=== PATIENT | female | born 1960 | race Caucasian/White ===

== ENCOUNTER → 2017-10-04 17:08 | Outpatient (CLI) | payer OTHER, SELFPAY ==
--- NOTE | 2017-10-04 17:12 | HPBI_ITS ---
MAMMOGRAPHY - BILATERAL SCREENING REASON FOR EXAM: Female, 57 years old. Routine annual screening examination. PERTINENT HISTORY: Non-contributory. TECHNIQUE: Digital bilateral breast ben (3D mammographic acquisition) in the CC and MLO projections. 2-D mediolateral oblique (MLO) and craniocaudad (CC) views of both breasts were obtained. CAD: Full Field Digital Mammography with Computer Added Detection was performed. COMPARISON: Comparison is made with prior examination dated July 11, 2016 and August 18, 2014. FINDINGS: Breast Composition: The breasts are heterogeneously dense, which may obscure small masses. There are no dominant masses or suspicious calcifications. No other significant abnormalities are identified. There has been no significant change since the prior study. HPBI/SCREENING MAMM (CAD), BILAT IMPRESSION: Stable bilateral screening mammogram. Yearly follow-up mammogram recommended. (A) ASSESSMENT CATEGORY: BIRADS Category 1: Negative. A letter regarding these results will be sent to the patient by the facility within 30 days. Approximately 10% of breast cancers are not detected by mammography. A normal mammogram should not delay biopsy of a clinically suspicious abnormality. [id number] Electronically Signed: Rodrick Chua MD at 9:00 EST Tel [phone], Service support ,
== END ==
PROVIDERS: Family Provider Family Medicine; PCP Family Medicine; Visit Provider Family Medicine
DX: Z12.31 Encounter for screening mammogram for malignant neoplasm of breast (principal)
CPT/HCPCS: 77063; 77067

== ENCOUNTER → 2018-10-31 17:30 | Outpatient (CLI) | payer OTHER, SELFPAY ==
--- NOTE | 2018-10-31 17:45 | BI_ITS ---
MAMMOGRAPHY - BILATERAL SCREENING 3-D JULITA SYNTHESIS REASON FOR EXAM: Female, 58 years old. Bilateral Screening 3-D tomosynthesis PERTINENT HISTORY: No significant family history. TECHNIQUE: 2-D mammograms and 3-D Julita synthesis of the breast (s) were performed. CAD was performed. COMPARISON: October 04, 2017, July 11, 2016 FINDINGS: The breast composition is heterogeneously dense that can obscure small breast masses. Scattered benign calcifications are seen. There are stable lymph nodes in both axillae. No dense spiculated masses or suspicious microcalcifications are identified. No architectural distortion is identified. There is no skin thickening or retraction. There has been no significant change since the prior study. BI/SCREENING MAMM (CAD), BILAT IMPRESSION: No mammographic signs of malignancy. Routine yearly mammograms recommended. ASSESSMENT CATEGORY: BIRADS Category 2: Benign. A letter regarding these results will be sent to the patient by the facility within 30 days. FOLLOW UP RECOMMENDATION: Yearly follow up mammogram recommended. (A) Approximately 10% of breast cancers are not detected by mammography. A normal mammogram should not delay biopsy of a clinically suspicious abnormality. Electronically Signed: Brandon Allen MD at 17:04 EDT , Service support ,
== END ==
PROVIDERS: Family Provider Family Medicine; PCP Family Medicine; Referring Provider Family Medicine; Visit Provider Family Medicine
DX: Z12.31 Encounter for screening mammogram for malignant neoplasm of breast (principal)
CPT/HCPCS: 77063; 77067

== ENCOUNTER → 2020-01-26 15:31 | Outpatient (CLI) | payer OTHER, SELFPAY ==
--- NOTE | 2020-01-26 15:34 | BI_ITS ---
MAMMOGRAPHY - BILATERAL SCREENING REASON FOR EXAM: Female, 59 years old. Routine annual screening examination. PERTINENT HISTORY: Non-contributory. TECHNIQUE: Digital bilateral breast julita (3D mammographic acquisition) in the CC and MLO projections. 2-D mediolateral oblique (MLO) and craniocaudad (CC) views of both breasts were obtained. CAD: Full Field Digital Mammography with Computer Added Detection was performed. COMPARISON: Comparison is made with prior study dated October 31, 2018 and October 04, 2017. FINDINGS: Breast Composition: The breasts are heterogeneously dense, which may obscure small masses. There are no dominant masses or suspicious calcifications. No other significant abnormalities are identified. There has been no significant change since the prior study. BI/SCREEN MAMM (CAD) W/JULITA BILAT IMPRESSION: Stable bilateral screening mammogram. Yearly follow-up mammogram recommended. (A) ASSESSMENT CATEGORY: BIRADS Category 1: Negative. A letter regarding these results will be sent to the patient by the facility within 30 days. Approximately 10% of breast cancers are not detected by mammography. A normal mammogram should not delay biopsy of a clinically suspicious abnormality. [id number] Electronically Signed: Rodrick Chua, at 9:02 EDT , Service support ,
== END ==
PROVIDERS: PCP Family Medicine; Referring Provider Family Medicine; Visit Provider Family Medicine
DX: Z12.31 Encounter for screening mammogram for malignant neoplasm of breast (principal)
CPT/HCPCS: 77063; 77067

== ENCOUNTER → 2021-03-04 14:20 | Outpatient (CLI) | payer OTHER, SELFPAY ==
--- NOTE | 2021-03-04 11:59 | BI_ITS ---
MAMMOGRAPHY - BILATERAL SCREENING REASON FOR EXAM: Female, 60 years old. Routine annual screening examination. PERTINENT HISTORY: Non-contributory. TECHNIQUE: Digital bilateral breast julita (3D mammographic acquisition) in the CC and MLO projections. 2-D mediolateral oblique (MLO) and craniocaudad (CC) views of both breasts were obtained. CAD: Full Field Digital Mammography with Computer Added Detection was performed. COMPARISON: Comparison is made with prior study dated 01/26/2020 and 10/31/2018. FINDINGS: Breast Composition: The breasts are heterogeneously dense, which may obscure small masses. There are no dominant masses or suspicious calcifications. No other significant abnormalities are identified. There has been no significant change since the prior study. BI/SCRN MAMM (CAD)W/JULITA BILAT IMPRESSION: Stable bilateral screening mammogram. Yearly follow-up mammogram recommended. (A) ASSESSMENT CATEGORY: BIRADS Category 1: Negative. A letter regarding these results will be sent to the patient by the facility within 30 days. Approximately 10% of breast cancers are not detected by mammography. A normal mammogram should not delay biopsy of a clinically suspicious abnormality. [id number] Electronically Signed: Rodrick Chua MD at 12:49 EDT , Service support ,
== END ==
PROVIDERS: PCP Family Medicine; Referring Provider Family Medicine; Visit Provider Family Medicine
DX: Z12.31 Encounter for screening mammogram for malignant neoplasm of breast (principal)
CPT/HCPCS: 77063; 77067

== ENCOUNTER → 2022-03-21 | Outpatient (CLI) | payer OTHER, SELFPAY ==
--- NOTE | 2022-03-21 08:16 | BI_ITS ---
MAMMOGRAPHY - BILATERAL SCREENING REASON FOR EXAM: Female, 61 years old. Routine annual screening examination. PERTINENT HISTORY: Non-contributory. TECHNIQUE: Digital bilateral breast julita (3D mammographic acquisition) in the CC and MLO projections. 2-D mediolateral oblique (MLO) and craniocaudad (CC) views of both breasts were obtained. CAD: Full Field Digital Mammography with Computer Added Detection was performed. COMPARISON: Comparison is made with prior study dated 03/04/2021 and 01/26/2020. FINDINGS: Breast Composition: The breasts are heterogeneously dense, which may obscure small masses. There are no dominant masses or suspicious calcifications. Stable benign-appearing bilateral axillary No other significant abnormalities are identified. There has been no significant change since the prior study. BI/SCRN MAMM (CAD)W/JULITA BILAT IMPRESSION: Stable bilateral screening mammogram. Yearly follow-up mammogram recommended. (A) ASSESSMENT CATEGORY: BIRADS Category 2: Benign. A letter regarding these results will be sent to the patient by the facility within 30 days. Approximately 10% of breast cancers are not detected by mammography. A normal mammogram should not delay biopsy of a clinically suspicious abnormality. [id number] Electronically Signed: Rodrick Chua MD at 9:48 EDT ,
== END | disposition home or self-care (01) ==
LOC: OPBI 08:15
PROVIDERS: PCP Family Medicine; Visit Provider Student in an Organized Health Care Education/Training Program
DX: Z12.31 Encounter for screening mammogram for malignant neoplasm of breast (principal)
CPT/HCPCS: 77063; 77067

== ENCOUNTER → 2023-03-30 | Outpatient (CLI) | payer OTHER, SELFPAY ==
--- NOTE | 2023-03-30 08:55 | BI_ITS ---
MAMMOGRAPHY - BILATERAL SCREENING REASON FOR EXAM: Female, 62 years old. Routine annual screening examination. PERTINENT HISTORY: Non-contributory. TECHNIQUE: Digital bilateral breast julita (3D mammographic acquisition) in the CC and MLO projections. 2-D mediolateral oblique (MLO) and craniocaudad (CC) views of both breasts were obtained. CAD: Full Field Digital Mammography with Computer Added Detection was performed. COMPARISON: Comparison is made with prior study dated March 21, 2022 and March 04, 2021. FINDINGS: Breast Composition: The breasts are heterogeneously dense, which may obscure small masses. There are no dominant masses or suspicious calcifications. No other significant abnormalities are identified. There has been no significant change since the prior study. BI/SCRN MAMM (CAD)W/JULITA BILAT IMPRESSION: Stable bilateral screening mammogram. Yearly follow-up mammogram recommended. (A) ASSESSMENT CATEGORY: BIRADS Category 1: Negative. A letter regarding these results will be sent to the patient by the facility within 30 days. Approximately 10% of breast cancers are not detected by mammography. A normal mammogram should not delay biopsy of a clinically suspicious abnormality. [id number] Electronically Signed: Rodrick Chua MD at 10:41 EDT ,
== END | disposition home or self-care (01) ==
LOC: OPBI 08:54
PROVIDERS: PCP Student in an Organized Health Care Education/Training Program; Referring Provider Student in an Organized Health Care Education/Training Program; Visit Provider Student in an Organized Health Care Education/Training Program
DX: Z12.31 Encounter for screening mammogram for malignant neoplasm of breast (principal)
CPT/HCPCS: 77063; 77067

== ENCOUNTER → 2024-04-09 | Outpatient (CLI) | payer OTHER, SELFPAY ==
--- NOTE | 2024-04-08 16:39 | BI_ITS ---
MAMMOGRAPHY - BILATERAL SCREENING REASON FOR EXAM: Female, 63 years old. Routine annual screening examination. PERTINENT HISTORY: Non-contributory. TECHNIQUE: Digital bilateral breast julita (3D mammographic acquisition) in the CC and MLO projections. 2-D mediolateral oblique (MLO) and craniocaudad (CC) views of both breasts were obtained. CAD: Full Field Digital Mammography with Computer Added Detection was performed. COMPARISON: Comparison is made with prior study March 30, 2023 and March 21, 2022. FINDINGS: Breast Composition: The breasts are heterogeneously dense, which may obscure small masses. There are no dominant masses or suspicious calcifications. Stable small benign-appearing bilateral axillary lymph nodes. No other significant abnormalities are identified. There has been no significant change since the prior study. BI/SCRN MAMM (CAD)W/JULITA BILAT IMPRESSION: Stable bilateral screening mammogram. Yearly follow-up mammogram recommended. (A) ASSESSMENT CATEGORY: BIRADS Category 2: Benign. A letter regarding these results will be sent to the patient by the facility within 30 days. Approximately 10% of breast cancers are not detected by mammography. A normal mammogram should not delay biopsy of a clinically suspicious abnormality. [id number] Electronically Signed: Rodrick Chua MD at 8:32 EDT ,
== END | disposition home or self-care (01) ==
LOC: OPBI 07:04
PROVIDERS: PCP Student in an Organized Health Care Education/Training Program; Referring Provider Student in an Organized Health Care Education/Training Program; Visit Provider Student in an Organized Health Care Education/Training Program
DX: Z12.31 Encounter for screening mammogram for malignant neoplasm of breast (principal)
CPT/HCPCS: 77063; 77067

== ENCOUNTER → 2025-03-20 | Outpatient (CLI) | payer OTHER, SELFPAY ==
--- NOTE | 2025-03-20 08:12 | RAD_ITS ---
EXAM: Single and double contrast esophagram. CLINICAL HISTORY: Dysphagia. Clinical concern for gastroesophageal reflux. COMPARISON: None. TECHNIQUE: Single and double contrast esophagram. Fluoroscopy time: 160 seconds. Dose: 40.46 mGy. FINDINGS: Limited visualization of the swallowing mechanism shows no abnormality. The esophagus demonstrate no area of persistent narrowing. No mucosal changes are appreciated. During the limited time of imaging, gastroesophageal reflux was not elicited. Easy passage of the 13 mm barium tablet into the stomach was seen. Limited imaging of the stomach and duodenum demonstrate no abnormality. RAD/Esophagus Dual Contrast IMPRESSION: No significant abnormality is seen. Reading Location: [place] [id number]
--- OUTSIDE RECORDS SUMMARY | 2025-03-20 08:28 | XMS RPT_ITS | CCD ---
Author Organization [facility] Care Team Providers Care Reproductive Surgeon Name Role Phone LAZARA ARAYA, SHAHLA Aguilar Primary Care Physician [phone] Shahla Leary Primary Care Provider 1(11 [phone]) LAURA PHILLIPS, DR PRESLEY Primary Care Physician [phone] Shahla Leary Primary Care Provider 1(11 [phone]) SHAHLA LEARY Primary Care Unavailab braydon NAUMBAHMAN, SHAHLA MCNULTY Primary Care Unavailab le LYNDSEYAR DO, DR PRESLEY Attending Unavailable ROMAR DO, DR PRESLEY Primary Care Unavailable ROMAR DO, DR PRESLEY Primary Care Unavailable ROMAR DO, DR PRESLEY Attending Unavailable ROMAR DO, DR PRESLEY Primary Care Unavailable ROMAR DO, DR PRESLEY Attending Unavailable ROMAR DO, DR PRESLEY Primary Care Unavailable ROMAR DO, DR PRESLEY Attending Unavailable EMILY ARAYA, LATOYA Consulting Unavailable Adam Singh Referring Unavailable Adam Singh Attending Unavailable Adam Singh Primary Care Unavailable Shahla Leary Primary Care Provider 1(11 [phone] ROMAR DO, DR PRESLEY Attending Unavailable ROMAR DO, DR PRESLEY Primary Care Unavailable ROMAR DO, DR PRESLEY Primary Care Unavailable HALKO DO, CHENTE Attending Unavailable ROMAR DO, DR PRESLEY Attending Unavailable ROMAR DO, DR PRESLEY Primary Care Unavailable HALKO , CHENTE Attending Unavailable ROMAR DO, DR PRESLEY Primary Care Unavailable ROMAR DO, DR PRESLEY Attending Unavailable ROMAR DO, DR PRESLEY Primary Care Unavailable ROMAR DO, DR PRESLEY Attending Unavailable ROMAR DO, DR PRESLEY Primary Care Unavailable Medications Current Medications Medication Drug Class(es) Dates Sig (Normalized) Sig (Original) amLODIPine 5 mg oral tablet (10 sources) Dihydropyridine Calcium Channel Rasta Start: 02-13-2024 End: 09-12-2025 amLODIPine 5 mg oral tablet Dose : 5 mg = 1 tab(s), Oral, qDay, # 100 tab(s), 1 Refill(s), Pharmacy: [facility], 160, cm, 02/24/25 14:18:00 EDT, Height, kg, 02/24/25 14:18:00 EDT, Dosing Weight Start Date: 02/24/25 Stop Date: 09/12/25 Status: Ordered Quantity: 100.0 Unit: tab(s) Repeat number: 2 Start: 06-06-2023 End: 12-03-2023 amLODIPine 5 mg oral tablet Dose : 5 mg = 1 tab(s), Oral, qDay, # 90 tab(s), 1 Refill(s), Pharmacy: [facility] #[id number], 159.2, cm, 06/06/23 10:05:00 EDT, Height, kg, 06/06/23 10:05:00 EDT, Dosing Weight Start Date: 06/06/23 Stop Date: 12/03/23 Status: Ordered Start: 04-11-2023 take 1 tablet by mouth once am LODIPine (NORVASC) 5 mg tablet Take 1 tablet by mouth every afternoon. 0 04/11/2023 Active Comment on above: Take 1 tablet by norma th every afternoon. calcium carbonate 1500 mg oral tablet (12 sources) Start: 03-14-20 calcium (as carbonate) 600 mg oral tablet Dose : 600 mg = 1 tab(s), Oral, qDay, gummies, 0 Refill(s) Start Date: 03/14/19 Status: Ordered Repeat number: 1 Chondroitin Sulfates / Glucosamine (1 source) Start: 03-12-20 take 1 capsule by mouth once daily Glucosamine Chondroitin oral capsule Dose = 2 cap(s), Oral, qDay, # 50 cap(s), 0 Refill(s) Start Date: 03/12/25 Status: Ordered Quantity: 50.0 Unit: cap(s) Repeat number: 1 DME MISCellaneous (2 sources) Start: 09-06-19 DME MISCellaneous See Instructions, BP cuff and machine, Dx: R03.0, # 1 EA, 0 Refill(s), Elevated blood pressure reading, 72.7 Start Date: 09/06/22 Status: Ordered levothyroxine sodium 0.05 mg oral tablet (20 sources) l-Thyroxine Start: 02-28-20 levothyroxine 50 mcg (0.05 mg) oral tablet Dose : 50 mcg = 1 tab(s), Oral, qDayAC, as a single daily dose before breakfast, # 100 tab(s), 3 Refill(s), Pharmacy: [facility], 160, cm, 02/24/25 14:18:00 EDT, Height, kg, 02/24/25 14:18:00 EDT, Dosing Weight Start Date: 02/27/25 Status: Ordered Quantity: 100.0 Unit: tab(s) Repeat number: 4 Start: 01-29-2024 End: 02-28-2024 levothyroxine 50 mcg (0.05 m g) oral tablet Dose : 50 mcg = 1 tab(s), Oral, qDayAC, as a single daily dose before breakfast, # 100 tab(s), 3 Refill(s), Pharmacy: [facility], 160, cm, 02/13/24 9:01:00 EDT, Height, kg, 02/13/24 9:01:00 EDT, Dosing Weight Start Date: 02/18/24 Status: Ordered Quantity: 100.0 Unit: tab(s) Repeat number: 4 Start: 01-02-2023 End: 12-03-2023 levothyroxine 50 mcg (0.05 m g) oral tablet Dose : 50 mcg = 1 tab(s), Oral, Daily, # 90 tab(s), 1 Refill(s), Pharmacy: [facility] #[id number], 159.2, cm, 06/06/23 10:05:00 EDT, Height, kg, 06/06/23 10:05:00 EDT, Dosing Weight Start Date: 06/06/23 Stop Date: 12/03/23 Status: Ordered Start: 08-02-2021 End: 01-01-2023 levothyroxine 50 mcg (0.05 m g) oral tablet Dose : 50 mcg = 1 tab(s), Oral, Daily, # 90 tab(s), 1 Refill(s), Pharmacy: [facility], 157, cm, 07/05/22 9:35:00 EST, Height, kg, 07/05/22 9:35:00 EST, Dosing Weight Start Date: 07/05/22 Stop Date: 01/01/23 Status: Ordered Start: 09-17-2018 levothyroxine (SYNTHROID) 50 mcg tablet 0 09/17/2018 Active Multivitamin capsule (9 sources) take 1 capsule by mo uth once daily Multivitamin capsule Take 1 capsule by mouth once daily. Active take 1 capsule by mouth once frank ly Multivitamin capsule Take 1 capsule by mouth once daily. 0 Active Comment on above: Take 1 capsule by mo uth once daily. Multivitamin preparation (12 sources) Start: 03-14-2019 take 1 tablet by mouth once daily Multivitamin Dose = 1 tab(s), Oral, Daily, 0 Refill(s) Start Date: 03/14/19 Status: Ordered Repeat number: 1 Start: 03-14-2019 [facility] Multivitamin Dose = 1 tab(s), Oral, Daily, 0 Refill(s) Start Date: 03/14/19 Status: Ordered predniSONE 10 mg oral tablet (4 sources) Start: 03-12-2025 End: 03-20-2025 prednisone 10mg tab (TAPER) Taper 40-30-20-10 x 2 days each dose, Oral, qDayM, Take with food/meal. No NSAIDs while on this med., # 20 tab(s), 0 Refill(s), Pharmacy: [facility]/pharmacy #[id number], 160, cm, 03/12/25 14:08:00 EDT, Height, kg, 03/12/25 14:08:00 EDT, Dosing Weight Start Date: 03/12/25 Stop Date: 03/20/25 Status: Ordered Quantity: 20.0 Unit: tab(s) Repeat number: 1 Start: 08-16-2024 End: 08-21-2024 predniSONE 50 mg oral tablet Dose : 50 mg = 1 tab(s), Oral, qDayM, X 5 day(s), # 5 tab(s), 0 Refill(s), 08/21/24 10:22:00 AM EST, [id number], 160, cm, 08/16/24 10:02:00 EST, Height, kg, 08/16/24 10:02:00 EST, Dosing Weight Start Date: 08/16/24 Stop Date: 08/21/24 Status: Ordered Quantity: 5.0 Unit: tab(s) Repeat number: 1 Start: 09-06-2022 End: 09-14-2022 prednisone 10mg tab (TAPER) Taper 40-30-20-10 x 2 days each dose, Oral, qDayM, Take with food/meal. No NSAIDs while on this med., # 20 tab(s), 0 Refill(s), Pharmacy: [facility] #[id number], 157, cm, 09/06/22 13:47:00 EST, Height Start Date: 09/06/22 Stop Date: 09/14/22 Status: Ordered Probiotic (7 sources) Start: 03-20-2023 Probiotic 0 Re fill(s) Start Date: 03/20/23 Status: Ordered Repeat number: 1 Start: 03-20-2023 Probiotic 0 Re fill(s) Start Date: 03/20/23 Status: Ordered rosuvastatin calcium 5 mg oral tablet (18 sources) HMG-CoA Reductase Inhibitor Start: 02-13-2024 End: 09-12-2025 Crestor 5 mg oral tablet Dose : 5 mg = 1 tab(s), Oral, qDay, # 100 tab(s), 1 Refill(s), Pharmacy: [facility], 160, cm, 02/24/25 14:18:00 EDT, Height, kg, 02/24/25 14:18:00 EDT, Dosing Weight Start Date: 02/24/25 Stop Date: 09/12/25 Status: Ordered Quantity: 100.0 Unit: tab(s) Repeat number: 2 Start: 06-06-2023 Crestor 5 mg o ral tablet Dose : 5 mg = 1 tab(s), Oral, qDay, # 90 tab(s), 1 Refill(s), Pharmacy: [facility] #[id number], 159.2, cm, 06/06/23 10:05:00 EDT, Height, kg, 06/06/23 10:05:00 EDT, Dosing Weight Start Date: 06/06/23 Status: Ordered Start: 01-02-2023 Crestor 5 mg o ral tablet Dose : 5 mg = 1 tab(s), Oral, qDay, # 90 tab(s), 1 Refill(s), Pharmacy: [facility], 157, cm, 09/06/22 13:47:00 EST, Height, kg, 09/06/22 13:47:00 EST, Dosing Weight Start Date: 01/02/23 Status: Ordered Start: 07-05-2022 Crestor 5 mg o ral tablet Dose : 5 mg = 1 tab(s), Oral, qDay, # 90 tab(s), 1 Refill(s), Pharmacy: [facility], 157, cm, 07/05/22 9:35:00 EST, Height, kg, 07/05/22 9:35:00 EST, Dosing Weight Start Date: 07/05/22 Status: Ordered Start: 04-02-2022 take 0.5 tablet by m outh once daily at bedtime rosuvastatin (CRESTOR) 10 mg tablet Take 0.5 tablets by mouth daily at bedtime. 0 04/02/2022 Active Start: 07-28-2021 Crestor 5 mg o ral tablet Dose : 5 mg = 1 tab(s), Oral, qDay, # 90 tab(s), 3 Refill(s), Pharmacy: [facility], 157, cm, 11/12/20 15:14:00 EDT, Height, kg, 11/12/20 15:14:00 EDT, Dosing Weight Start Date: 07/28/21 Status: Ordered Comment on above: Take 0.5 tablets by mouth daily at bedtime. turmeric extract 500 mg oral capsule (8 sources) Start: 07-05-2022 turmeric 500 mg oral capsule Dose : 500 mg = 1 cap(s), Oral, BID, 0 Refill(s) Start Date: 07/05/22 Status: Ordered Repeat number: 1 Completed/Discontinued Medications Medication Drug Class(es) Dates Sig (Normalized) Sig (Original) atorvastatin 10 mg oral tablet (4 sources) HMG-CoA Reductase Inhibitor Start: 12-13-2018 End: 04-02-2022 atorvastatin (LIPITOR) 10 mg tablet 12/13/2018 04/02/2022 Discontinued Problems Problem Classification Problem Date Documented Da te Episodic/Chronic Administrative/social admission (8 sources) Stress at work 03-20-2023 Episodic Chronic kidney disease (11 sources) Chronic kidney disease stage 2 07-21-2022 Chronic Disorders of lipid metabolism (12 sources) Hyperlipidemia 03-14-2019 Chronic Comment on above: 03/03 ascvd risk 3.4% on statin Essential hypertension (10 sources) Hypertensive disorder; Translations: [Essential (primary) hypertension] Onset: 08-14-2024 03-20-2023 Chronic Malaise and fatigue (8 sources) Fatigue 06-06-2023 Episodic Other bone disease and musculoskeletal deformities (2 sources) Osteopenia 02-24-2025 Episodic Other circulatory disease (2 sources) Elevated blood pressure 09-06-2022 Episodic Other connective tissue disease (12 sources) Swelling of finger 02-28-2022 Episodic Other connective tissue disease (1 source) Medial epicondylitis of left humerus 03-12-2025 Episodic Other nervous system disorders (20 sources) Carpal tunnel syndrome 03-13-2019 Chronic Other nutritional; endocrine; and metabolic disorders (8 sources) Overweight in adulthood with body mass index of 25 or more but less than 30 07-31-2023 Episodic Other screening for suspected conditions (not mental disorders or infectious disease) (3 sources) Encounter for screening for malignant neoplasm of cervix; Translations: [Encounter for screening mammogram for malignant neoplasm of breast] Onset: 07-31-2023 Episodic Other upper respiratory infections (2 sources) Viral upper respiratory tract infection; Translations: [Acute upper respiratory infection, unspecified] 04-26-2023 Episodic Ngoc-; endo-; and myocarditis; cardiomyopathy (except that caused by tuberculosis or sexually transmitted disease) (8 sources) Ejection murmur 06-06-2023 Chronic Residual codes; unclassified (8 sources) Obstructive sleep apnea syndrome 03-20-2023 Chronic Residual codes; unclassified (3 sources) Treatment not available; Translations: [Procedure and treatment not carried out for other reasons] Episodic Residual codes; unclassified (2 sources) Left before being seen; Translations: [Procedure and treatment not carried out due to patient leaving prior to being seen by health care provider] Episodic Sprains and strains (8 sources) Low back strain 02-06-2023 Episodic Superficial injury; contusion (1 source) Insect bite of upper limb 03-12-2025 Episodic Thyroid disorders (12 sources) Hypothyroidism 03-14-2019 Chronic Unclassified (8 sources) Mild aortic valve regurgitation 07-25-2023 Unclassified (8 sources) Mild tricuspid valve regurgitation 07-25-2023 Viral infection (1 source) Disease caused by 2019-nCoV; Translations: [COVID-19] Episodic Results Test Name Value Interpretation Reference Range Facility US SOFT TISSUE MASS OF LT AR M OR LEGon 03-14-2025 US SOFT TISSUE MASS OF LT ARM OR LEG ORIGINAL EXAMINATION: SOFT TISSUE ULTRASOUND OF THE LEFT ANTECUBITAL FOSSA 03/13/2025 5:45 pm COMPARISON: None. HISTORY: ORDERING SYSTEM PROVIDED HISTORY: Reason for Exam: left medial elbow mass after insect bite, rule out abscess, clot, mass FINDINGS: Directed linear real-time and Doppler assessment in the region of interest reveals no pathologic fluid collection, hematoma, abscess, lipoma, or hernia. IMPRESSION: No sonographic abnormality in the region of interest. Interpreted by: Hal Subramanian DO Preliminary Report By: Hal Subramanian DO Electronically signed By Hal Subramanian DO Dictated Date: 03/14/2025 3:26:58 PM Prelim Date: 03/14/2025 3:28:06 PM Sign Date: 03/14/2025 3:28:06 PM Ordering Provider: ADAM De La Torre [facility] .GFRon 02-26-2025 Estimated Glomerular Filtration Rate 93 ml/min/1.73sqm [facility] Comment on above: Result Comment: Stages of Chronic Kidney Disease (CKD) Stage Description eGFR(ml/min/1.73 sq.m.) CKD 1 Normal kidney function or >=90 normal kindney function with possible kidney damage (ex. Proteinuria) CKD 2 Kidney damage with mild loss 60-89 of kidney function CKD 3a Mild to moderate loss of kidney 45-59 function CKD 3b Moderate to severe loss of 30-44 of kindey function CKD 4 Severe loss of kidney function 15-29 CKD 5 Kidney failure <15 Note: (go live 2024) the eGFR calculation was updated to the 2020 CKD-EPI creatinine equation without a race factor to calculate the eGFR results. Performed By: #### G FR, TSHR, LIPID, CMP, VIDH #### [facility] [address] [place] [id number] CMPon 02-26-2025 Albumin Level 3.7 G/dL Normal 3.4-4.8 [facility] Comment on above: Performed By: #### G FR, TSHR, LIPID, CMP, VIDH #### [address] [address] Albumin/Globulin [Mass ratio] 1.2 {ratio} Normal 1.1-2.5 [facility] Comment on above: Performed By: #### G FR, TSHR, LIPID, CMP, VIDH #### [place] [address] ALP [Catalytic activity/Vol] 81 U/L Normal 40-135 [facility] Comment on above: Performed By: #### G FR, TSHR, LIPID, CMP, VIDH #### [place] [address] ALT [Catalytic activity/Vol] 32 U/L Normal 14-59 [facility] Comment on above: Performed By: #### G FR, TSHR, LIPID, CMP, VIDH #### [place] [address] AST [Catalytic activity/Vol] 23 U/L Normal 10-40 [facility] Comment on above: Performed By: #### G FR, TSHR, LIPID, CMP, VIDH #### [place] [address] Bili Total 0.4 mg/dL Normal 0.2-1.0 [facility] Comment on above: Result Comment: Use of this assay is not recommended for patients undergoing treatment with eltrombopag due to the potential for falsely elevated results. Performed By: #### G FR, TSHR, LIPID, CMP, VIDH #### [place] [address] BUN/Creatinine Ratio 22 ratio Normal 7-27 [facility] Comment on above: Performed By: #### G FR, TSHR, LIPID, CMP, VIDH #### [place] [id number] Calcium [Mass/Vol] 8.9 mg/dL Normal 8.4-10.2 [facility] Comment on above: Performed By: #### G FR, TSHR, LIPID, CMP, VIDH #### [address] [address] Chloride [Moles/Vol] 105 mmol/L Normal 98-107 [facility] Comment on above: Performed By: #### G FR, TSHR, LIPID, CMP, VIDH #### [place] [address] CO2 [Moles/Vol] 28 mmol/L Normal 23-31 [facility] Comment on above: Performed By: #### G FR, TSHR, LIPID, CMP, VIDH #### [place] [address] Creatinine [Mass/Vol] 0.72 mg/dL Normal 0.51-0.95 [facility] Comment on above: Performed By: #### G FR, TSHR, LIPID, CMP, VIDH #### [place] [address] Electrolyte Balance 7.0 mEq/L Normal 4.0-15.0 [facility] Comment on above: Performed By: #### G FR, TSHR, LIPID, CMP, VIDH #### [place] [address] Globulin 3.1 G/dL Normal 2.7-4.4 [facility] Comment on above: Performed By: #### G FR, TSHR, LIPID, CMP, VIDH #### [place] [address] Glucose [Mass/Vol] 85 mg/dL Normal 80-115 [facility] Comment on above: Performed By: #### G FR, TSHR, LIPID, CMP, VIDH #### [place] [address] Potassium [Moles/Vol] 4.3 mmol/L Normal 3.5-5.1 [facility] Comment on above: Performed By: #### G FR, TSHR, LIPID, CMP, VIDH #### [place] [address] Sodium [Moles/Vol] 140 mmol/L Normal 136-145 [facility] Comment on above: Performed By: #### G FR, TSHR, LIPID, CMP, VIDH #### [place] [address] [place], [place] [address] Total Protein 6.8 G/dL Normal 6.4-8.2 [facility] Comment on above: Performed By: #### G FR, TSHR, LIPID, CMP, VIDH #### [place] [address] [place], [place] [address] Urea nitrogen [Mass/Vol] 16 mg/dL Normal 7-18 [facility] Comment on above: Performed By: #### G FR, TSHR, LIPID, CMP, VIDH #### [place] [address] [place], [place] [address] LABORATORYOrdered By: SYSTEM SYSTEM on 02-26-2025 25-hydroxyvitamin D3 [Mass/Vol] 32.4 ng/mL Invalid Interpretation Code AO ADM SS Comment on above: Interpretive Data: I nterpretive Values Based on Total 25(OH) Vitamin D: Deficient <20 ng/mL Insufficient 20 - <30 ng/mL Sufficient 30-100 ng/mL Albumin BCP dye [Mass/Vol] 3.7 G/dL Normal 3.4 - 4.8 G/dL AO ADM SS Albumin/Globulin [Mass ratio] 1.2 {ratio} Normal 1.1 - 2.5 ratio AO ADM SS ALP [Catalytic activity/Vol] 81 U/L Normal 40 - 135 U/L AO ADM SS ALT With P-5'-P [Catalytic activity/Vol] 32 U/L Normal 14 - 59 U/L AO ADM SS AST With P-5'-P [Catalytic activity/Vol] 23 U/L Normal 10 - 40 U/L AO ADM SS Bilirubin [Mass/Vol] 0.4 mg/dL Normal 0.2 - 1 .0 mg/dL AO ADM SS Comment on above: Interpretive Data: U se of this assay is not recommended for patients undergoing treatment with eltrombopag due to the potential for falsely elevated results. Calcium [Mass/Vol] 8.9 mg/dL Normal 8.4 - 10. 2 mg/dL AO ADM SS Chloride [Moles/Vol] 105 mmol/L Normal 98 - 10 7 mmol/L AO ADM SS CO2 [Moles/Vol] 28 mmol/L Normal 23 - 31 mmol/L AO ADM SS Creatinine [Mass/Vol] 0.72 mg/dL Normal 0.51 - 0.95 mg/dL AO ADM SS Electrolyte Balance 7.0 mEq/L Normal 4.0 - 15 .0 mEq/L AO ADM SS Estimated Glomerular Filtration Rate 93 ml/min/1.73sqm Invalid Interpretation Code AO Chemistry S Comment on above: Interpretive Data: Stages of Chronic Kidney Disease (CKD) Stage Description eGFR(ml/min/1.73 sq.m.) CKD 1 Normal kidney function or >=90 normal kindney function with possible kidney damage (ex. Proteinuria) CKD 2 Kidney damage with mild loss 60-89 of kidney function CKD 3a Mild to moderate loss of kidney 45-59 function CKD 3b Moderate to severe loss of 30-44 of kindey function CKD 4 Severe loss of kidney function 15-29 CKD 5 Kidney failure <15 Note: (go live 2024) the eGFR calculation was updated to the 2020 CKD-EPI creatinine equation without a race factor to calculate the eGFR results. Globulin 3.1 G/dL Normal 2.7 - 4.4 G/dL AO ADM SS Glucose [Mass/Vol] 85 mg/dL Normal 80 - 115 mg/dL AO ADM SS Potassium [Moles/Vol] 4.3 mmol/L Normal 3.5 - 5.1 mmol/L AO ADM SS Protein [Mass/Vol] 6.8 G/dL Normal 6.4 - 8.2 G/dL AO ADM SS Sodium [Moles/Vol] 140 mmol/L Normal 136 - 145 mmol/L AO ADM SS TSH Qn 2.29 m[IU]/L Normal 0.36 - 3.74 mcIU/mL AO ADM SS Urea nitrogen [Mass/Vol] 16 mg/dL Normal 7 - 18 mg/dL AO ADM SS Urea nitrogen/Creatinine [Mass ratio] 22 ratio Normal 7 - 27 ratio AO ADM SS LABORATORYOrdered By: Gerson Morrison on 02-26-2025 Cholesterol [Mass/Vol] 148 mg/dL Normal 0 - 200 mg/dL AO ADM SS Comment on above: Interpretive Data: C holesterol Reference Interval: Less than 200 Desirable 200-239 Borderline high risk 240 and above High risk Cholesterol in HDL [Mass/Vol] 55 mg/dL Normal 40 - 60 mg/dL AO ADM SS Cholesterol in LDL [Mass/Vol] 66 mg/dL Normal 0 - 130 mg/dL AO ADM SS Triglyceride [Mass/Vol] 136 mg/dL Normal 0 - 150 mg/dL AO ADM SS Comment on above: Interpretive Data: T riglyceride Reference Interval: Less than 150 Normal 150-199 Borderline high risk 200-499 High risk 500 or higher Very high risk LIPIDon 02-26-2025 Cholesterol [Mass/Vol] 148 mg/dL Normal 0-200 [facility] Comment on above: Result Comment: Chol esterol Reference Interval: Less than 200 Desirable 200-239 Borderline high risk 240 and above High risk Performed By: #### G FR, TSHR, LIPID, CMP, VIDH ####[facility] [address] Cholesterol in HDL [Mass/Vol] 55 mg/dL Normal 40-60 [facility] Comment on above: Performed By: #### G FR, TSHR, LIPID, CMP, VIDH ####[address] [address] Cholesterol in LDL [Mass/Vol] 66 mg/dL Normal 0-130 [facility] Comment on above: Performed By: #### G FR, TSHR, LIPID, CMP, VIDH ####[facility] [address] [address] Triglyceride [Mass/Vol] 136 mg/dL Normal 0-150 [facility] Comment on above: Result Comment: Trig lyceride Reference Interval: Less than 150 Normal 150-199 Borderline high risk 200-499 High risk 500 or higher Very high risk Performed By: #### G FR, TSHR, LIPID, CMP, VIDH ####[facility] [address] TSHRon 02-26-2025 TSH Qn 2.29 m[IU]/L Normal 0.36-3.74 [facility] Comment on above: Performed By: #### G FR, TSHR, LIPID, CMP, VIDH #### [address] [address] [facility] 02-26-2025 Vit. D 25-Hydroxy 32.4 ng/mL Normal [facility] Comment on above: Result Comment: Inte rpretive Values Based on Total 25(OH) Vitamin D: Deficient <20 ng/mL Insufficient 20 - <30 ng/mL Sufficient 30-100 ng/mL Performed By: #### G FR, TSHR, LIPID, CMP, VIDH ####[facility] [place], [place] [address] BD BONE DENSITY DEXA AXIAL S [facility] 10-15-2024 BD BONE DENSITY DEXA AXIAL SKELETON ORIGINAL EXAMINATION: BONE DENSITOMETRY 10/15/2024 11:51 am TECHNIQUE: A bone density dual x-ray absorptiometry (DEXA) scan was performed of the axial (e.g. hips, spine) and/or appendicular (e.g. radius) skeleton as appropriate. COMPARISON: None. HISTORY: ORDERING SYSTEM PROVIDED HISTORY: Reason for Exam: Osteoporosis Screening FINDINGS: T Score Left Femoral Neck: -1.4 Left Femoral Neck: 0.692 (g/cm2) T Score Left Hip: -0.5 Left Hip: 0.876 (g/cm2) T Score Lumbar Spine: -0.8 Lumbar Spine: 0.961 (g/cmd2) FRAX: 10 year fracture risk assessment Major osteoporotic fracture: 14% Hip fracture: 1.4% IMPRESSION: Osteopenia by WHO criteria. World Health Organization criteria: (Comparing with young normal sex matched population) - Normal: T-score at or above -1 SD (standard deviation) - Osteopenia: T-score between -1 and -2.5 SD - Osteoporosis: T-score at or below -2.5 SD The NOF recommends that FDA-approved medical therapies be considered in post-menopausal women and men age >/= 50 years with a: * Hip or vertebral fracture, or * T-score of /= 20% for major osteoporotic fractures or * >/= 3% for hip fractures All treatment decisions require clinical judgement and consideration of individual patient factors, including patient preferences, comorbidities, previous drug use, risk factors not captured in the FRAX registered model (e.g., frailty, falls, vitamin D deficiency, increased bone turnover, interval significant decline in bone density) and possible under- or over-estimation of fracture risk by FRAX. Interpreted by: Norbert Lantigua DO Preliminary Report By: Norbert Lantigua DO Electronically signed By Norbert Lantigua DO Dictated Date: 10/15/2024 1:18:13 PM Prelim Date: 10/15/2024 1:18:55 PM Sign Date: 10/15/2024 1:18:55 PM Ordering Provider: ADAM De La Torre [facility] XR KNEE THREE VIEWS RIGHTon 08-18-2024 XR KNEE THREE VIEWS RIGHT ORIGINAL EXAMINATION: THREE XRAY VIEWS OF THE RIGHT KNEE08/16/2024 10:47 am COMPARISON: None. HISTORY: ORDERING SYSTEM PROVIDED HISTORY: Reason for Exam: right knee pain/swelling; suspec OA and meniscal tear FINDINGS: No acute fracture or dislocation is identified. A small joint effusion visualized. Lateral tibiofemoral compartment narrowing and spurring visualized. There is mild patellofemoral joint space loss and spurring. There is no radiopaque foreign body. IMPRESSION: Mild degenerative changes. Small joint effusion. No visualized fracture. Interpreted by: Hal Luque MD Preliminary Report By: Hal Luque MD Electronically signed By Hal Luque MD Dictated Date: 08/18/2024 11:29:48 AM Prelim Date: 08/18/2024 11:30:36 AM Sign Date: 08/18/2024 11:30:36 AM Ordering Provider: CHENTE BLOUNT [facility] [facility] .GFRon 08-14-2024 GFR 106 ml/min/1.73sqm [facility] Comment on above: Result Comment: GFR Population mean for , Non- Americans Ages 20-29 = 116 mL/min/1.73 sq.m. Ages 30-39 = 107 mL/min/1.73 sq.m. Ages 40-49 = 99 mL/min/1.73 sq.m. Ages 50-59 = 93 mL/min/1.73 sq.m. Ages 60-69 = 85 mL/min/1.73 sq.m. Ages 70+ = 75 mL/min/1.73 sq.m. Chronic Kidney Disease: Less than 60 mL/min/1.73 square meters End Stage Renal Disease: Less than 15 mL/min/1.73 square meters Performed By: #### Efe FR, BMP #### [address] [address] #### HCV1 #### [address] [address] GFR Non- 87 ml/min/1.73sqm Normal [facility] Comment on above: Result Comment: GFR Population mean for , Non- Americans Ages 20-29 = 116 mL/min/1.73 sq.m. Ages 30-39 = 107 mL/min/1.73 sq.m. Ages 40-49 = 99 mL/min/1.73 sq.m. Ages 50-59 = 93 mL/min/1.73 sq.m. Ages 60-69 = 85 mL/min/1.73 sq.m. Ages 70+ = 75 mL/min/1.73 sq.m. Chronic Kidney Disease: Less than 60 mL/min/1.73 square meters End Stage Renal Disease: Less than 15 mL/min/1.73 square meters Performed By: #### Efe FR, BMP #### [place] [address] #### HCV1 #### [address] 08-14-2024 BUN/Creatinine Ratio 18 ratio Normal 7-27 [facility] Comment on above: Performed By: #### Efe FR, BMP #### [place] [address] #### HCV1 #### [place] [id number] Calcium [Mass/Vol] 9.7 mg/dL Normal 8.4-10.2 [facility] Comment on above: Performed By: #### Efe FR, BMP #### [place] [address] #### HCV1 #### [place] [id number] Chloride [Moles/Vol] 106 mmol/L Normal 98-107 [facility] Comment on above: Performed By: #### Efe FR, BMP #### [address] [address] #### HCV1 #### [address] [address] CO2 [Moles/Vol] 30 mmol/L Normal 23-31 [facility] Comment on above: Performed By: #### Efe FARRELL, BMP #### [address] [address] #### HCV1 #### [address] [address] Creatinine [Mass/Vol] 0.68 mg/dL Normal 0.55-1.02 [facility] Comment on above: Result Comment: Test ing performed on Siemens Dimension EXL analyzer using a modified kinetic [place] technique. Performed By: #### Efe FARRELL, BMP #### [address] [address] #### HCV1 #### [address] [address] Electrolyte Balance 7.0 mEq/L Normal 4.0-15.0 [facility] Comment on above: Performed By: #### Efe FARRELL, BMP #### [address] [address] #### HCV1 #### [address] [address] Glucose [Mass/Vol] 88 mg/dL Normal 80-115 [facility] Comment on above: Performed By: #### Efe FARRELL, BMP #### [address] [address] #### HCV1 #### [address] [address] Potassium [Moles/Vol] 4.9 mmol/L Normal 3.5-5.1 [facility] Comment on above: Performed By: #### Efe FARRELL, BMP #### [address] [address] #### HCV1 #### [address] [address] Sodium [Moles/Vol] 143 mmol/L Normal 136-145 [facility] Comment on above: Performed By: #### G FR, BMP #### [address] [address] #### HCV1 #### [place] [address] Urea nitrogen [Mass/Vol] 12 mg/dL Normal 7-18 [facility] Comment on above: Performed By: #### G FR, BMP #### [place] [address] #### HCV1 #### [place] [address] HCVon 08-14-2024 Hep C Ab Non-Reactive Normal Non-Reactive [facility] Comment on above: Performed By: #### G FR, BMP #### [address] [address] #### HCV1 #### [place] [address] Hep C Ab Int Normal [facility] Comment on above: Result Comment: Nonr eactive: Samples with a value < 0.80 are considered nonreactive (negative) for antibodies to HCV. A negative test result does not exclude the possibility of exposure to or infection with HCV. HCV antibodies may be undetectable in some stages of the infection and in some clinical conditions. See Interp Performed By: #### G FR, BMP #### [address] [address] #### HCV1 #### [place] [address] LABORATORYOrdered By: Gerson Morrison on 08-14-2024 Albumin DL <= 20 mg/L (U) [Mass/Vol] 536 mcg/dL Invalid Interpretation Code AO ADM SS Albumin/Creatinine DL <= 20 mg/L (U) [Mass ratio] 6 mcg/mg Normal 0 - 30 mcg/mg AO Chemistry S Creatinine (U) [Mass/Vol] 83.8 mg/dL Invalid Interpretation Code AO ADM SS LABORATORYOrdered By: [employer] on 08-14-2024 Calcium [Mass/Vol] 9.7 mg/dL Normal 8.4 - 10. 2 mg/dL AO ADM SS Chloride [Moles/Vol] 106 mmol/L Normal 98 - 10 7 mmol/L AO ADM SS CO2 [Moles/Vol] 30 mmol/L Normal 23 - 31 mmol/L AO ADM SS Creatinine [Mass/Vol] 0.68 mg/dL Normal 0.55 - 1.02 mg/dL AO ADM SS Comment on above: Interpretive Data: T esting performed on Siemens Dimension EXL analyzer using a modified kinetic [place] technique. Electrolyte Balance 7.0 mEq/L Normal 4.0 - 15 .0 mEq/L AO ADM SS GFR/1.73 sq M.predicted among blacks MDRD (S/P/Bld) [Vol rate/Area] 106 ml/min/1.73sqm Invalid Interpretation Code AO Chemistry S Comment on above: Interpretive Data: GFR Population mean for , Non- Americans Ages 20-29 = 116 mL/min/1.73 sq.m. Ages 30-39 = 107 mL/min/1.73 sq.m. Ages 40-49 = 99 mL/min/1.73 sq.m. Ages 50-59 = 93 mL/min/1.73 sq.m. Ages 60-69 = 85 mL/min/1.73 sq.m. Ages 70+ = 75 mL/min/1.73 sq.m. Chronic Kidney Disease: Less than 60 mL/min/1.73 square meters End Stage Renal Disease: Less than 15 mL/min/1.73 square meters GFR/1.73 sq M.predicted among non-blacks MDRD (S/P/Bld) [Vol rate/Area] 87 ml/min/1.73sqm Invalid Interpretation Code AO Chemistry S Comment on above: Interpretive Data: GFR Population mean for , Non- Americans Ages 20-29 = 116 mL/min/1.73 sq.m. Ages 30-39 = 107 mL/min/1.73 sq.m. Ages 40-49 = 99 mL/min/1.73 sq.m. Ages 50-59 = 93 mL/min/1.73 sq.m. Ages 60-69 = 85 mL/min/1.73 sq.m. Ages 70+ = 75 mL/min/1.73 sq.m. Chronic Kidney Disease: Less than 60 mL/min/1.73 square meters End Stage Renal Disease: Less than 15 mL/min/1.73 square meters Glucose [Mass/Vol] 88 mg/dL Normal 80 - 115 mg/dL AO ADM SS Potassium [Moles/Vol] 4.9 mmol/L Normal 3.5 - 5.1 mmol/L AO ADM SS Sodium [Moles/Vol] 143 mmol/L Normal 136 - 145 mmol/L AO ADM SS Urea nitrogen [Mass/Vol] 12 mg/dL Normal 7 - 18 mg/dL AO ADM SS Urea nitrogen/Creatinine [Mass ratio] 18 ratio Normal 7 - 27 ratio AO ADM SS LABORATORYOrdered By: Adilson Coelho on 08-14-2024 HCV Ab IA Ql Non-Reactive (08/14/24 10:02 AM) Normal Non-Reactive AH ADM SS HCV Ab IA Ql Nonreactive: Samples with a value < 0.80 are considered nonreactive (negative) for antibodies to HCV.A negative test result does not exclude the possibility of exposure to or infection with HCV. HCV antibodies may be undetectable in some stages of the infection and in some clinical conditions. Invalid Interpretation Code [facility] U Creatinine 83.8 mg/dL Normal [facility] Comment on above: Performed By: #### M ALBR #### [address] [address] U Microalb 536 mcg/dL Normal [facility] Comment on above: Performed By: #### M ALBR #### [place] [address] [place], [place] [address] U Ratio Alb/Cre 6 mcg/mg Normal 0-30 [facility] Comment on above: Performed By: #### M ALBR #### [place] [address] [place], [place] [address] SCRN MAMM (CAD)W/ROMEO BILATo n 04-08-2024 SCRN MAMM (CAD)W/ROMEO BILAT [facility] [address] [place] [id number] SCRN MAMM (CAD)W/ROMEOAshley RAMOSAT MR#: [id number] Acct: [id number] Name: DESI RODRIGUEZ Rep #: [id number] : 1960 F 63 From: Rodrick hoang MD PCP: Dr. Adam Singh DO Status: [facility] Study: SCRN MAMM (CAD)W/ROMEO BILAT Date of Exam: 03/14 03/05 Exam# [id number] Ordering Dr: Adam Singh DO -[id number] MAMMOGRAPHY - BILATERAL SCREENING REASON FOR EXAM: Female, 63 years old. Routine annual screening examination. PERTINENT HISTORY: Non-contributory. TECHNIQUE: Digital bilateral breast romeo (3D mammographic acquisition) in the CC and MLO projections. 2-D mediolateral oblique (MLO) and craniocaudad (CC) views of both breasts were obtained. CAD: Full Field Digital Mammography with Computer Added Detection was performed. COMPARISON: Comparison is made with prior study March 30, 2023 and March 21, 2022. FINDINGS: Breast Composition: The breasts are heterogeneously dense, which may obscure small masses. There are no dominant masses or suspicious calcifications. Stable small benign-appearing bilateral axillary lymph nodes. No other significant abnormalities are identified. There has been no significant change since the prior study. BI/SCRN MAMM (CAD)W/ROMEO BILAT IMPRESSION: Stable bilateral screening mammogram. Yearly follow-up mammogram recommended. (A) ASSESSMENT CATEGORY: BIRADS Category 2: Benign. A letter regarding these results will be sent to the patient by the facility within 30 days. Approximately 10% of breast cancers are not detected by mammography. A normal mammogram should not delay biopsy of a clinically suspicious abnormality. [id number] Electronically Signed: Rodrick Chua MD at 8:32 EDT , CC: Dr. Adam Singh DO [place] Hand: Signed Normal [facility] .Auto Diffon 02-13-2024 Basophil, Absolute 0.0 10 3/mcL Normal 0.0-0.2 [facility] ([place]) Comment on above: Performed By: #### L IPID, CMP, ANEU, GFR, ADIFF, CBC, TSHR #### [address] [address] Basophils/100 WBC (Bld) 0.7 % Normal 0.0-2.5 [facility] ([place]) Comment on above: Performed By: #### L IPID, CMP, ANEU, GFR, ADIFF, CBC, TSHR #### [address] [address] Eosinophil, Absolute 0.2 10 3/mcL Normal 0.0-0.4 [facility] ([place]) Comment on above: Performed By: #### L IPID, CMP, ANEU, GFR, ADIFF, CBC, TSHR #### [address] [address] Eosinophils/100 WBC (Bld) 4.2 % Normal 0.0-7.0 [facility] ([place]) Comment on above: Performed By: #### L IPID, CMP, ANEU, GFR, ADIFF, CBC, TSHR #### [address] [address] Lymphocyte, Absolute 1.7 10 3/mcL Normal 0.8-3.9 [facility] ([place]) Comment on above: Performed By: #### L IPID, CMP, ANEU, GFR, ADIFF, CBC, TSHR #### [address] [address] Lymphocytes/100 WBC (Bld) 31.6 % Normal 10.0-50.0 [facility] ([place]) Comment on above: Performed By: #### L IPID, CMP, ANEU, GFR, ADIFF, CBC, TSHR #### [address] [address] Monocyte, Absolute 0.6 10 3/mcL Normal 0.2-1.0 [facility] ([place]) Comment on above: Performed By: #### L IPID, CMP, ANEU, GFR, ADIFF, CBC, TSHR #### [address] [address] Monocytes/100 WBC (Bld) 10.3 % Normal 1.7-13.0 [facility] ([place]) Comment on above: Performed By: #### L IPID, CMP, ANEU, GFR, ADIFF, CBC, TSHR #### [address] [address] Neutrophils/100 WBC (Bld) 53.2 % Normal 37.0-80.0 [facility] ([place]) Comment on above: Performed By: #### L IPID, CMP, ANEU, GFR, ADIFF, CBC, TSHR #### [address] [address] .GFRon 02-13-2024 GFR 78 ml/min/1.73sqm Normal [facility] ([place]) Comment on above: Result Comment: GFR Population mean for , Non- Americans Ages 20-29 = 116 mL/min/1.73 sq.m. Ages 30-39 = 107 mL/min/1.73 sq.m. Ages 40-49 = 99 mL/min/1.73 sq.m. Ages 50-59 = 93 mL/min/1.73 sq.m. Ages 60-69 = 85 mL/min/1.73 sq.m. Ages 70+ = 75 mL/min/1.73 sq.m. Chronic Kidney Disease: Less than 60 mL/min/1.73 square meters End Stage Renal Disease: Less than 15 mL/min/1.73 square meters Performed By: #### L IPID, CMP, ANEU, GFR, ADIFF, CBC, TSHR #### [address] [address] GFR Non- 65 ml/min/1.73sqm Normal [facility] ([place]) Comment on above: Result Comment: GFR Population mean for , Non- Americans Ages 20-29 = 116 mL/min/1.73 sq.m. Ages 30-39 = 107 mL/min/1.73 sq.m. Ages 40-49 = 99 mL/min/1.73 sq.m. Ages 50-59 = 93 mL/min/1.73 sq.m. Ages 60-69 = 85 mL/min/1.73 sq.m. Ages 70+ = 75 mL/min/1.73 sq.m. Chronic Kidney Disease: Less than 60 mL/min/1.73 square meters End Stage Renal Disease: Less than 15 mL/min/1.73 square meters Performed By: #### L IPID, CMP, ANEU, GFR, ADIFF, CBC, TSHR #### [address] [address] .NEUABSon 02-13-2024 Neutrophil, Absolute 2.9 10 3/mcL Normal 2.9-6.2 [facility] ([place]) Comment on above: Performed By: #### L IPID, CMP, ANEU, GFR, ADIFF, CBC, TSHR #### [address] [address] CBCon 02-13-2024 Erythrocyte distribution width (RBC) [Ratio] 13.3 % Normal 11.5-14.5 [facility] ([place]) Comment on above: Performed By: #### L IPID, CMP, ANEU, GFR, ADIFF, CBC, TSHR #### [place] [address] Hematocrit (Bld) [Volume fraction] 41.4 % Normal 37.0-47.0 [facility] ([place]) Comment on above: Performed By: #### L IPID, CMP, ANEU, GFR, ADIFF, CBC, TSHR #### [place] [id number] Hgb 14.0 G/dL Normal 12.0-16.0 [facility] ([place]) Comment on above: Performed By: #### L IPID, CMP, ANEU, GFR, ADIFF, CBC, TSHR #### [address] [address] MCH (RBC) [Entitic mass] 30.2 pg Normal 27.0-31.2 [facility] ([place]) Comment on above: Performed By: #### L IPID, CMP, ANEU, GFR, ADIFF, CBC, TSHR #### [address] [address] MCHC 33.8 G/dL Normal 33.0-37.0 [facility] ([place]) Comment on above: Performed By: #### L IPID, CMP, ANEU, GFR, ADIFF, CBC, TSHR #### [address] [address] MCV (RBC) [Entitic vol] 89.1 fL Normal 80.0-94.0 [facility] ([place]) Comment on above: Performed By: #### L IPID, CMP, ANEU, GFR, ADIFF, CBC, TSHR #### [address] [address] Platelet 370 10 3/mcL Normal 130-400 [facility] ([place]) Comment on above: Performed By: #### L IPID, CMP, ANEU, GFR, ADIFF, CBC, TSHR #### [address] [address] Platelet mean volume (Bld) [Entitic vol] 7.6 fL Normal 7.4-10.4 [facility] ([place]) Comment on above: Performed By: #### L IPID, CMP, ANEU, GFR, ADIFF, CBC, TSHR #### [address] [address] RBC 4.64 10 6/mcL Normal 4.20-5.40 [facility] ([place]) Comment on above: Performed By: #### L IPID, CMP, ANEU, GFR, ADIFF, CBC, TSHR #### [address] [address] WBC 5.4 10 3/mcL Normal 4.6-10.8 [facility] ([place]) Comment on above: Performed By: #### L IPID, CMP, ANEU, GFR, ADIFF, CBC, TSHR #### [address] [address] CMPon 02-13-2024 Albumin Level 4.0 G/dL Normal 3.4-4.8 [facility] ([place]) Comment on above: Performed By: #### L IPID, CMP, ANEU, GFR, ADIFF, CBC, TSHR #### [address] [address] Albumin/Globulin [Mass ratio] 1.3 {ratio} Normal 1.1-2.5 [facility] ([place]) Comment on above: Performed By: #### L IPID, CMP, ANEU, GFR, ADIFF, CBC, TSHR #### [address] [address] ALP [Catalytic activity/Vol] 104 U/L Normal 40-135 [facility] ([place]) Comment on above: Performed By: #### L IPID, CMP, ANEU, GFR, ADIFF, CBC, TSHR #### [address] [address] ALT [Catalytic activity/Vol] 30 U/L Normal 14-59 [facility] ([place]) Comment on above: Performed By: #### L IPID, CMP, ANEU, GFR, ADIFF, CBC, TSHR #### [address] [address] AST [Catalytic activity/Vol] 24 U/L Normal 10-40 [facility] ([place]) Comment on above: Performed By: #### L IPID, CMP, ANEU, GFR, ADIFF, CBC, TSHR #### [address] [address] Bili Total 0.5 mg/dL Normal 0.2-1.0 [facility] ([place]) Comment on above: Result Comment: Use of this assay is not recommended for patients undergoing treatment with eltrombopag due to the potential for falsely elevated results. Performed By: #### L IPID, CMP, ANEU, GFR, ADIFF, CBC, TSHR #### [address] [address] BUN/Creatinine Ratio 19 ratio Normal 7-27 [facility] ([place]) Comment on above: Performed By: #### L IPID, CMP, ANEU, GFR, ADIFF, CBC, TSHR #### [address] [address] Calcium [Mass/Vol] 9.4 mg/dL Normal 8.4-10.2 [facility] ([place]) Comment on above: Performed By: #### L IPID, CMP, ANEU, GFR, ADIFF, CBC, TSHR #### [address] [address] Chloride [Moles/Vol] 103 mmol/L Normal 98-107 [facility] ([place]) Comment on above: Performed By: #### L IPID, CMP, ANEU, GFR, ADIFF, CBC, TSHR #### [address] [address] CO2 [Moles/Vol] 30 mmol/L Normal 23-31 [facility] ([place]) Comment on above: Performed By: #### L IPID, CMP, ANEU, GFR, ADIFF, CBC, TSHR #### [address] [address] Creatinine [Mass/Vol] 0.88 mg/dL Normal 0.55-1.02 [facility] ([place]) Comment on above: Performed By: #### L IPID, CMP, ANEU, GFR, ADIFF, CBC, TSHR #### [address] [address] Electrolyte Balance 8.0 mEq/L Normal 4.0-15.0 [facility] ([place]) Comment on above: Performed By: #### L IPID, CMP, ANEU, GFR, ADIFF, CBC, TSHR #### [address] [address] Globulin 3.1 G/dL Normal [facility] ([place]) Comment on above: Performed By: #### L IPID, CMP, ANEU, GFR, ADIFF, CBC, TSHR #### [address] [address] Glucose [Mass/Vol] 86 mg/dL Normal 80-115 [facility] ([place]) Comment on above: Performed By: #### L IPID, CMP, ANEU, GFR, ADIFF, CBC, TSHR #### [address] [address] Potassium [Moles/Vol] 4.1 mmol/L Normal 3.5-5.1 [facility] ([place]) Comment on above: Performed By: #### L IPID, CMP, ANEU, GFR, ADIFF, CBC, TSHR #### [address] [address] Sodium [Moles/Vol] 141 mmol/L Normal 136-145 [facility] ([place]) Comment on above: Performed By: #### L IPID, CMP, ANEU, GFR, ADIFF, CBC, TSHR #### [address] [address] Total Protein 7.1 G/dL Normal 6.4-8.2 [facility] ([place]) Comment on above: Performed By: #### L IPID, CMP, ANEU, GFR, ADIFF, CBC, TSHR #### [address] [address] Urea nitrogen [Mass/Vol] 17 mg/dL Normal 7-18 [facility] ([place]) Comment on above: Performed By: #### L IPID, CMP, ANEU, GFR, ADIFF, CBC, TSHR #### [address] [address] LABORATORYOrdered By: SYSTEM SYSTEM on 02-13-2024 Albumin BCP dye [Mass/Vol] 4.0 G/dL Normal 3.4 - 4.8 G/dL AO ADM SS Albumin/Globulin [Mass ratio] 1.3 {ratio} Normal 1.1 - 2.5 ratio AO ADM SS ALP [Catalytic activity/Vol] 104 U/L Normal 40 - 135 U/L AO ADM SS ALT With P-5'-P [Catalytic activity/Vol] 30 U/L Normal 14 - 59 U/L AO ADM SS AST With P-5'-P [Catalytic activity/Vol] 24 U/L Normal 10 - 40 U/L AO ADM SS Basophil, Absolute 0.0 103/mcL Normal 0.0 - 0.2 10^3/mcL AO Workflow SS Basophils/100 WBC (Bld) 0.7 % Normal 0.0 - 2.5 % AO Workflow SS Bilirubin [Mass/Vol] 0.5 mg/dL Normal 0.2 - 1 .0 mg/dL AO ADM SS Comment on above: Interpretive Data: U se of this assay is not recommended for patients undergoing treatment with eltrombopag due to the potential for falsely elevated results. Calcium [Mass/Vol] 9.4 mg/dL Normal 8.4 - 10. 2 mg/dL AO ADM SS Chloride [Moles/Vol] 103 mmol/L Normal 98 - 10 7 mmol/L AO ADM SS CO2 [Moles/Vol] 30 mmol/L Normal 23 - 31 mmol/L AO ADM SS Creatinine [Mass/Vol] 0.88 mg/dL Normal 0.55 - 1.02 mg/dL AO ADM SS Electrolyte Balance 8.0 mEq/L Normal 4.0 - 15 .0 mEq/L AO ADM SS Eosinophil, Absolute 0.2 103/mcL Normal 0.0 - 0 .4 10^3/mcL AO Workflow SS Eosinophils/100 WBC (Bld) 4.2 % Normal 0.0 - 7.0 % AO Workflow SS Erythrocyte distribution width (RBC) [Ratio] 13.3 % Normal 11.5 - 14.5 % AO Workflow SS GFR/1.73 sq M.predicted among blacks MDRD (S/P/Bld) [Vol rate/Area] 78 ml/min/1.73sqm Invalid Interpretation Code AO Chemistry S Comment on above: Interpretive Data: GFR Population mean for , Non- Americans Ages 20-29 = 116 mL/min/1.73 sq.m. Ages 30-39 = 107 mL/min/1.73 sq.m. Ages 40-49 = 99 mL/min/1.73 sq.m. Ages 50-59 = 93 mL/min/1.73 sq.m. Ages 60-69 = 85 mL/min/1.73 sq.m. Ages 70+ = 75 mL/min/1.73 sq.m. Chronic Kidney Disease: Less than 60 mL/min/1.73 square meters End Stage Renal Disease: Less than 15 mL/min/1.73 square meters GFR/1.73 sq M.predicted among non-blacks MDRD (S/P/Bld) [Vol rate/Area] 65 ml/min/1.73sqm Invalid Interpretation Code AO Chemistry S Comment on above: Interpretive Data: GFR Population mean for , Non- Americans Ages 20-29 = 116 mL/min/1.73 sq.m. Ages 30-39 = 107 mL/min/1.73 sq.m. Ages 40-49 = 99 mL/min/1.73 sq.m. Ages 50-59 = 93 mL/min/1.73 sq.m. Ages 60-69 = 85 mL/min/1.73 sq.m. Ages 70+ = 75 mL/min/1.73 sq.m. Chronic Kidney Disease: Less than 60 mL/min/1.73 square meters End Stage Renal Disease: Less than 15 mL/min/1.73 square meters Globulin 3.1 G/dL Invalid Interpretation Code AO ADM SS Glucose [Mass/Vol] 86 mg/dL Normal 80 - 115 mg/dL AO ADM SS Hematocrit (Bld) [Volume fraction] 41.4 % Normal 37.0 - 47.0 % AO Workflow SS Hemoglobin (Bld) [Mass/Vol] 14.0 G/dL Normal 12.0 - 16.0 G/dL AO Workflow SS Lymphocyte, Absolute 1.7 103/mcL Normal 0.8 - 3 .9 10^3/mcL AO Workflow SS Lymphocytes/100 WBC (Bld) 31.6 % Normal 10.0 - 50.0 % AO Workflow SS MCH (RBC) [Entitic mass] 30.2 pg Normal 27.0 - 31.2 pg AO Workflow SS MCHC 33.8 G/dL Normal 33.0 - 37.0 G/dL AO Workflow SS MCV (RBC) [Entitic vol] 89.1 fL Normal 80.0 - 94.0 fL AO Workflow SS Monocyte, Absolute 0.6 103/mcL Normal 0.2 - 1.0 10^3/mcL AO Workflow SS Monocytes/100 WBC (Bld) 10.3 % Normal 1.7 - 13.0 % AO Workflow SS Neutrophil, Absolute 2.9 103/mcL Normal 2.9 - 6 .2 10^3/mcL AO Workflow SS Neutrophils/100 WBC (Bld) 53.2 % Normal 37.0 - 80.0 % AO Workflow SS Platelet mean volume (Bld) [Entitic vol] 7.6 fL Normal 7.4 - 10.4 fL AO Workflow SS Platelets (Bld) [#/Vol] 370 103/mcL Normal 130 - 400 10^3/mcL AO Workflow SS Potassium [Moles/Vol] 4.1 mmol/L Normal 3.5 - 5.1 mmol/L AO ADM SS Protein [Mass/Vol] 7.1 G/dL Normal 6.4 - 8.2 G/dL AO ADM SS RBC (Bld) [#/Vol] 4.64 106/mcL Normal 4.20 - 5.4 0 10^6/mcL AO Workflow SS Sodium [Moles/Vol] 141 mmol/L Normal 136 - 145 mmol/L AO ADM SS TSH Qn 2.77 m[IU]/L Normal 0.36 - 3.74 mcIU/mL AO ADM SS Urea nitrogen [Mass/Vol] 17 mg/dL Normal 7 - 18 mg/dL AO ADM SS Urea nitrogen/Creatinine [Mass ratio] 19 ratio Normal 7 - 27 ratio AO ADM SS WBC (Bld) [#/Vol] 5.4 103/mcL Normal 4.6 - 10.8 10^3/mcL AO Workflow SS LABORATORYOrdered By: Lucia Slater on 02-13-2024 Cholesterol [Mass/Vol] 159 mg/dL Normal 0 - 200 mg/dL AO ADM SS Comment on above: Interpretive Data: C holesterol Reference Interval: Less than 200 Desirable 200-239 Borderline high risk 240 and above High risk Cholesterol in HDL [Mass/Vol] 60 mg/dL Normal 40 - 60 mg/dL AO ADM SS Cholesterol in LDL [Mass/Vol] 77 mg/dL Normal 0 - 130 mg/dL AO ADM SS Triglyceride [Mass/Vol] 110 mg/dL Normal 0 - 150 mg/dL AO ADM SS Comment on above: Interpretive Data: T riglyceride Reference Interval: Less than 150 Normal 150-199 Borderline high risk 200-499 High risk 500 or higher Very high risk LIPIDon 02-13-2024 Cholesterol [Mass/Vol] 159 mg/dL Normal 0-200 [facility] ([place]) Comment on above: Result Comment: Chol esterol Reference Interval: Less than 200 Desirable 200-239 Borderline high risk 240 and above High risk Performed By: #### L IPID, CMP, ANEU, GFR, ADIFF, CBC, TSHR #### [address] [address] Cholesterol in HDL [Mass/Vol] 60 mg/dL Normal 40-60 [facility] Comment on above: Performed By: #### L IPID, CMP, ANEU, GFR, ADIFF, CBC, TSHR #### [address] [address] Cholesterol in LDL [Mass/Vol] 77 mg/dL Normal 0-130 [facility] Comment on above: Performed By: #### L IPID, CMP, ANEU, GFR, ADIFF, CBC, TSHR #### [address] [address] Triglyceride [Mass/Vol] 110 mg/dL Normal 0-150 [facility] Comment on above: Result Comment: Trig lyceride Reference Interval: Less than 150 Normal 150-199 Borderline high risk 200-499 High risk 500 or higher Very high risk Performed By: #### L IPID, CMP, ANEU, GFR, ADIFF, CBC, TSHR #### [address] [address] TSHRon 02-13-2024 TSH Qn 2.77 m[IU]/L Normal 0.36-3.74 [facility]) Comment on above: Performed By: #### L IPID, CMP, ANEU, GFR, ADIFF, CBC, TSHR #### [address] [address] Cash Clerk Cytology Reporton 2022 Cash Clerk Cytology Report . Pathology Reports Accession: Collected Date/Time: Received Date/Time: Pathologist: [id number] 07/31/2023 12:46 EST 07/31/2023 18:00 EST Cash Clerk Cytology Report SPECIMEN: Specimen Description: Liquid Prep w/ HPV Specimen: Cervical Screening or Diagnostic: Screening RELEVANT HISTORY: LMP: post menopausal SPECIMEN ADEQUACY: SATISFACTORY FOR EVALUATION Endocervical/Transf ormational zone component present INTERPRETATION/RESU LTS: NEGATIVE FOR INTRAEPITHELIAL LESION OR MALIGNANCY COMMENT: This Pap Test was successfully processed and evaluated with the assistance of the [employer] Thin[employer] Test Imaging System. Electronically Signed by Pathology report verified by [facility] Screened by: KK Electronically signed by Jane ALVAREZ ([facility]) Sign-Out Date: 08/03/2023 12:28 Performing Lab: [facility], [address] [place] [address] Pathology Dept Disclaimer The Pap test is a screening test for cervical cancer. As evidenced by published data, it is subject to both inherent false negative and false positive results. Your patient's results should be interpreted in context with pertinent clinical history including gynecological examination. Normal [facility] ([place]) CNPNon 04-27-2023 CNPN Telephone ([facility]WSTR) ---- DESI RODRIGUEZ ([id number]) 1960 F Date Time Provider Department 04/27/23 MELONY ANN [facility] During your visit today, we recorded the following information about you: Luz Marina Poole 04/27/2023 11:21 AM Signed ----- Message from Melony Ann APRN.SUPERVISOR BAKING sent at 04/27/2023 8:52 AM EDT ----- Please advise patient the COVID, flu, RSV test was negative. Luz Marina Poole 04/27/2023 11:22 AM Signed Patient given results and verbalized understanding of instructions given. Luz Marina Poole Allergies As of Date: 04/27/2023 (No Known Allergies) Date Reviewed: 04/26/2023 Reviewed by: Luz Marina Poole - Fully Assessed Reason for Visit: Results [95] Prescriptions as of 04/27/2023 - amLODIPine (NORVASC) 5 mg tablet Take 1 tablet by mouth every afternoon. - rosuvastatin (CRESTOR) 10 mg tablet Take 0.5 tablets by mouth daily at bedtime. - levothyroxine (SYNTHROID) 50 mcg tablet - Multivitamin capsule Take 1 capsule by mouth once daily. Problem List As Of Date: 04/27/2023 (None) Encounter Status:Closed by LUZ MARINA POOLE on 04/27/23 [facility] CNOVon 04-26-2023 CNOV Office Visit ([facility]WSTR) ---- MICHAELSERADESI Davonte ([id number]) 1960 F Date Time Provider Department 04/26/23 6:45 PM MELONY ANN [facility] During your visit today, we recorded the following information about you: Temperature Pulse Respiration Blood pressure 98.3 degrees 78/minute 16/minute 132/80 Weight 72.1 kg Melony Ann APRN.SUPERVISOR BAKING 04/26/2023 7:01 PM Signed Subjective Sore Throat Associated symptoms include congestion and coughing. Pertinent negatives include no ear pain. Desi L Michael is a 62 year old female who presents with sore throat, cough, runny nose for the past 2 days. Ibuprofen was taken for her symptoms. She took a COVID test at home on the first day of symptoms which was negative. She has not had a fever. Review of Systems Constitutional: Negative for chills and fever. HENT: Positive for congestion and sore throat. Negative for ear pain. Respiratory: Positive for cough. Cardiovascular: Negative. BP 132/80 Pulse 78 Temp 36.8 ?C (98.3 ?F) Resp 16 Wt 72.1 kg (159 lb) SpO2 98% BMI 28.17 kg/m? PAST MEDICAL HISTORY Diagnosis Date NEGATIVE MEDICAL HISTORY PAST SURGICAL HISTORY Procedure Laterality Date COLONOSCOPY FLX DX W/COLLJ SPEC WHEN PFRMD 06/05/17 Colonoscopy TUBAL LIGATION HX 07/31/1991 ALLERGIES Patient has no known allergies. MEDICATIONS rosuvastatin (CRESTOR) 10 mg tablet Take 0.5 tablets by mouth daily at bedtime. levothyroxine (SYNTHROID) 50 mcg tablet Multivitamin capsule Take 1 capsule by mouth once daily. amLODIPine (NORVASC) 5 mg tablet Take 1 tablet by mouth every afternoon. FAMILY HISTORY Problem Relation Age of Onset Heart Father Social History Tobacco Use Smoking status: Never Smokeless tobacco: Never Substance Use Topics Alcohol use: Yes Comment: social Drug use: No Objective Physical Exam Vitals and nursing note reviewed. Constitutional: Appearance: Normal appearance. HENT: Right Ear: Tympanic membrane, ear canal and external ear normal. Left Ear: Tympanic membrane, ear canal and external ear normal. Mouth/Throat: Mouth: Mucous membranes are moist. Pharynx: Uvula midline. Posterior oropharyngeal erythema present. No oropharyngeal exudate. Cardiovascular: Rate and Rhythm: Normal rate and regular rhythm. Heart sounds: Normal heart sounds. Pulmonary: Effort: Pulmonary effort is normal. No respiratory distress. Breath sounds: Normal breath sounds. No wheezing or rales. Musculoskeletal: Cervical back: Neck supple. Lymphadenopathy: Cervical: No cervical adenopathy. Skin: General: Skin is warm and dry. Findings: No erythema or rash. Neurological: Mental Status: She is alert. ASSESSMENT/PLAN: 1. Viral URI with cough - ICD9: 465.9, ICD10: J06.9 (primary diagnosis) - Discussed viral etiology and rationale for treatment. - Symptomatic treatment with prn analgesia - Supportive care with fluids and rest - COVID AND INFLUENZA A/B AND RSV NAAT, ROUTINE - COVID NAAT, UPPER RESPIRATORY, ROUTINE - ROUTINE FLU A/B + RSV 2. Sore throat - ICD9: 462, ICD10: J02.9 - suspect viral - Group A strep molecular testing negative - Discussed supportive care treatment with fluids, rest and analgesia. - STREP A MOLECULAR (POC) - Follow-up with your PCP in 3-5 days if symptoms have not improved or sooner if symptoms worsen - Discussed red flags and need for immediate medical evaluation if any occur. - Discussed supportive care treatment with fluids, rest and analgesia. - Discussed expected course of illness Melony Praisler-ELISEO Mendosa Kathy, APRN.CNP 04/26/2023 6:57 PM Signed ASSESSMENT/PLAN: 1. Viral URI with cough - ICD9: 465.9, ICD10: J06.9 (primary diagnosis) - Discussed viral etiology and rationale for treatment. - Symptomatic treatment with prn analgesia - Supportive care with fluids and rest - COVID AND INFLUENZA A/B AND RSV NAAT, ROUTINE - COVID NAAT, UPPER RESPIRATORY, ROUTINE - ROUTINE FLU A/B + RSV 2. Sore throat - ICD9: 462, ICD10: J02.9 - suspect viral - Group A strep molecular testing negative - Discussed supportive care treatment with fluids, rest and analgesia. - STREP A MOLECULAR (POC) - Follow-up with your PCP in 3-5 days if symptoms have not improved or sooner if symptoms worsen - Discussed red flags and need for immediate medical evaluation if any occur. - Discussed supportive care treatment with fluids, rest and analgesia. - Discussed expected course of illness Melony Ann APRN.CNP Treatment for Viral Upper Respiratory Tract Infections Your body will kill off the virus by itself. Additionally, you can prime your body's immune system. This may help you get better more quickly. Drink lots of fluids Make sure you are eating well Get plenty of rest We do not have any medications that kill off these viruses. Antibiotics are used to (more content not included)... Normal [facility] ROUTINE FLU A/B + RSVon 04-13 FLUAV RNA DYLLAN+probe Ql (Unsp spec) Not detected Normal Not Detected [facility] Comment on above: Order Comment: Speci men Type: SWAB OF INTERNAL NOSE Ordering Facility: [facility] Address: [address] [id number] Performed By: #### R TFRSV, 25155-7 #### [facility] CLIA [id number] [address] [place] [address] [place] FLUBV RNA DYLLAN+probe Ql (Unsp spec) Not detected Normal Not Detected [facility] Comment on above: Order Comment: Speci men Type: SWAB OF INTERNAL NOSE Ordering Facility: [facility] Address: [address] [id number] Performed By: #### R TFRSV, 22928-3 #### [facility] CLIA [id number] [address] [place] [address] [place] RSV A RNA DYLLAN+probe Ql (Unsp spec) Not detected Normal Not Detected [facility] Comment on above: Order Comment: Speci men Type: SWAB OF INTERNAL NOSE Ordering Facility: [facility] Address: [address] [address] Performed By: #### R TFRSV, 78786-1 #### [facility] CLIA [id number] [address] [place] [address] [place] SARS-CoV-2 RNA Resp Ql DYLLAN+p robeon 04-26-2023 SARS-CoV-2 (COVID-19) RNA DYLLAN+probe Ql (Resp) COVID 19 RESULT: Not detected The method used is RT-PCR or an equivalent NAAT method. Reference Range (the expected result in uninfected individuals): Not detected Normal [facility] Comment on above: Performed By: #### R TFRSV, 30285-6 #### [facility] IA [id number] [address] [place] [address] [place] STREP A MOLECULAR (POC)on Procedural Control Valid [facility] Strep A (POCT) Negative Negative [facility] LABORATORYOrdered By: SYSTEM SYSTEM on 01-16-2023 Calcium [Mass/Vol] 9.4 mg/dL Invalid Interpretation Code 8.4 - 10.2 mg/dL AO ADM SS Chloride [Moles/Vol] 104 mmol/L Invalid Interpretation Code 98 - 107 mmol/L AO ADM SS CO2 [Moles/Vol] 30 mmol/L Invalid Interpretation Code 23 - 31 mmol/L AO ADM SS Creatinine [Mass/Vol] 0.82 mg/dL Invalid Interpretation Code 0.55 - 1.02 mg/dL AO ADM SS Electrolyte Balance 8.0 mEq/L Invalid Interpretation Code 4.0 - 15.0 mEq/L AO ADM SS GFR/1.73 sq M.predicted among blacks MDRD (S/P/Bld) [Vol rate/Area] 85 ml/min/1.73sqm Invalid Interpretation Code AO Chemistry S GFR/1.73 sq M.predicted among non-blacks MDRD (S/P/Bld) [Vol rate/Area] 70 ml/min/1.73sqm Invalid Interpretation Code AO Chemistry S Glucose [Mass/Vol] 83 mg/dL Invalid Interpretation Code 80 - 115 mg/dL AO ADM SS Potassium [Moles/Vol] 5.1 mmol/L Invalid Interpretation Code 3.5 - 5.1 mmol/L AO ADM SS Sodium [Moles/Vol] 142 mmol/L Invalid Interpretation Code 136 - 145 mmol/L AO ADM SS TSH Qn 3.21 m[IU]/L Invalid Interpretation Code 0.36 - 3.74 mcIU/mL AO ADM SS Urea nitrogen [Mass/Vol] 15 mg/dL Invalid Interpretation Code 7 - 18 mg/dL AO ADM SS Urea nitrogen/Creatinine [Mass ratio] 18 ratio Invalid Interpretation Code 7 - 27 ratio AO ADM SS LABORATORYOrdered By: Mode Coreas on 01-16-2023 Cholesterol [Mass/Vol] 174 mg/dL Invalid Interpretation Code 0 - 200 mg/dL AO ADM SS Cholesterol in HDL [Mass/Vol] 48 mg/dL Invalid Interpretation Code 40 - 60 mg/dL AO ADM SS Cholesterol in LDL [Mass/Vol] 75 mg/dL Invalid Interpretation Code 0 - 130 mg/dL AO ADM SS Triglyceride [Mass/Vol] 255 mg/dL Invalid Interpretation Code 0 - 150 mg/dL AO ADM SS CNPNon 12-09-2022 CNPN Telephone ([facility]WSTR) ---- DESI RODRIGUEZ ([id number]) 1960 F Date Time Provider Department 12/09/22 DICK FRAZIER [facility] During your visit today, we recorded the following information about you: Luz Marina Poole 12/09/2022 10:04 AM Signed ----- Message from Dick Frazier MD sent at 12/09/2022 8:09 AM EDT ----- Negative COVID. Luz Marina Poole 12/09/2022 10:04 AM Signed Patient given results and verbalized understanding of instructions given. Luz Marina Poole Allergies As of Date: 12/09/2022 (No Known Allergies) Date Reviewed: 01/18/2021 Reviewed by: Luz Marina Poole Ma - Fully Assessed Reason for Visit: Results [95] Prescriptions as of 12/09/2022 - rosuvastatin (CRESTOR) 10 mg tablet Take 0.5 tablets by mouth daily at bedtime. - levothyroxine (SYNTHROID) 50 mcg tablet - Multivitamin capsule Take 1 capsule by mouth once daily. Problem List As Of Date: 12/09/2022 (None) Encounter Status:Closed by LUZ MARINA POOLE on 12/09/22 [facility] CNOVon 12-08-2022 CNOV Office Visit ([facility]WSTR) ---- DESI RODRIGUEZ ([id number]) 1960 F Date Time Provider Department 12/08/22 6:30 PM DICK FRAZIER [facility] During your visit today, we recorded the following information about you: Temperature Pulse Respiration Blood pressure 98.6 degrees 84/minute 16/minute 144/84 Weight 74.4 kg Dick Frazier MD 12/08/2022 6:55 PM Signed Patient presents with: Sore Throat: x 1 day HPI: Feeling sick since yesterday. Teaches kindergarten. Positive symptoms: sore throat, Fatigue, some sneezing Negative symptoms: Cough, Nasal Congestion, Rhinorrhea, Fever, Malaise, OTC: none. Home COVID test negative. She is having a family get together with her elderly father tomorrow and is concerned about exposing him to illness. MEDICATIONS: Current Outpatient Medications Medication Sig rosuvastatin (CRESTOR) 10 mg tablet Take 0.5 tablets by mouth daily at bedtime. levothyroxine (SYNTHROID) 50 mcg tablet Multivitamin capsule Take 1 capsule by mouth once daily. No current facility-administer ed medications for this visit. ALLERGIES: ALLERGIES No Known Allergies VITALS: BP 144/84 Pulse 84 Temp 37 ?C (98.6 ?F) Resp 16 Wt 74.4 kg (164 lb) SpO2 97% BMI 29.05 kg/m? PHYSICAL EXAM: GEN: mildly ill appearing HEENT: PERRL, EOMI, conjunctiva clear Sinuses: non-tender frontal sinus, non-tender maxillary sinuses Throat: moist mucous membranes, mild erythema, no exudate Neck: supple, no thyromegaly, no lymphadenopathy LUNGS: no cough, no increased WOB ASSESSMENT/PLAN: 1. Sore throat - ICD9: 462, ICD10: J02.9 - STREP A MOLECULAR (POC) - negative. - suspect viral pharyngitis. - Discussed contagiousness. - 2019 CORONAVIRUS Dick Frazier MD Referring Provider: SELF [200] Allergies As of Date: 12/08/2022 (No Known Allergies) Date Reviewed: 01/18/2021 Reviewed by: Luz Marina Poole Ma - Fully Assessed Reason for Visit: Sore Throat [200] Cmt: x 1 day Primary Visit Diagnosis:Sore throat [J02.9] Order(s):STREP A MOLECULAR (POC) [4729216] Order #: [id number]. #:[id number] 2019 CORONAVIRUS [SQCOVID] Order #: [id number]. #:[id number] Prescriptions as of 12/08/2022 - rosuvastatin (CRESTOR) 10 mg tablet Take 0.5 tablets by mouth daily at bedtime. - levothyroxine (SYNTHROID) 50 mcg tablet - Multivitamin capsule Take 1 capsule by mouth once daily. Problem List As Of Date: 12/08/2022 (None) Encounter Status:Closed by DICK FRAZIER on 12/08/22 Normal [facility] LABORATORYOrdered By: SYSTEM SYSTEM on 09-06-2022 Albumin BCP dye [Mass/Vol] 4.3 G/dL Invalid Interpretation Code 3.4 - 4.8 G/dL AO ADM SS Albumin/Globulin [Mass ratio] 1.3 {ratio} Invalid Interpretation Code 1.1 - 2.5 ratio AO ADM SS ALP [Catalytic activity/Vol] 100 U/L Invalid Interpretation Code 40 - 135 U/L AO ADM SS ALT With P-5'-P [Catalytic activity/Vol] 27 U/L Invalid Interpretation Code 14 - 59 U/L AO ADM SS AST With P-5'-P [Catalytic activity/Vol] 20 U/L Invalid Interpretation Code 10 - 40 U/L AO ADM SS Bilirubin [Mass/Vol] 0.4 mg/dL Invalid Interpretation Code 0.2 - 1.0 mg/dL AO ADM SS Calcium [Mass/Vol] 9.4 mg/dL Invalid Interpretation Code 8.4 - 10.2 mg/dL AO ADM SS Chloride [Moles/Vol] 104 mmol/L Invalid Interpretation Code 98 - 107 mmol/L AO ADM SS CO2 [Moles/Vol] 31 mmol/L Invalid Interpretation Code 23 - 31 mmol/L AO ADM SS Creatinine [Mass/Vol] 0.78 mg/dL Invalid Interpretation Code 0.55 - 1.02 mg/dL AO ADM SS Electrolyte Balance 6.0 mEq/L Invalid Interpretation Code 4.0 - 15.0 mEq/L AO ADM SS GFR 90 ml/min/1.73sqm Invalid Interpretation Code AO Chemistry S GFR Non- 75 ml/min/1.73sqm Invalid Interpretation Code AO Chemistry S Globulin 3.2 G/dL Invalid Interpretation Code AO ADM SS Glucose [Mass/Vol] 94 mg/dL Invalid Interpretation Code 80 - 115 mg/dL AO ADM SS Potassium [Moles/Vol] 4.8 mmol/L Invalid Interpretation Code 3.5 - 5.1 mmol/L AO ADM SS Protein [Mass/Vol] 7.5 G/dL Invalid Interpretation Code 6.4 - 8.2 G/dL AO ADM SS Sodium [Moles/Vol] 141 mmol/L Invalid Interpretation Code 136 - 145 mmol/L AO ADM SS Urea nitrogen [Mass/Vol] 18 mg/dL Invalid Interpretation Code 7 - 18 mg/dL AO ADM SS Urea nitrogen/Creatinine [Mass ratio] 23 ratio Invalid Interpretation Code 7 - 27 ratio AO ADM SS Uric Acid Lvl 4.0 mg/dL Invalid Interpretation Code 2.6 - 6.2 mg/dL AO ADM SS LABORATORYOrdered By: Wisamlisa yudy Branch on 09-06-2022 Basophil, Absolute 0.0 103/mcL Invalid Interpretation Code 0.0 - 0.2 10^3/mcL AO Workflow SS Basophils/100 WBC (Bld) 0.6 % Invalid Interpretation Code 0.0 - 2.5 % AO Workflow SS Eosinophil, Absolute 0.1 103/mcL Invalid Interpretation Code 0.0 - 0.4 10^3/mcL AO Workflow SS Eosinophils/100 WBC (Bld) 2.1 % Invalid Interpretation Code 0.0 - 7.0 % AO Workflow SS Erythrocyte distribution width (RBC) [Ratio] 13.2 % Invalid Interpretation Code 11.5 - 14.5 % AO Workflow SS ESR 15 minute reading (Bld) [Velocity] 8 mm/hr Invalid Interpretation Code 0 - 30 mm/hr AO Man Heme SS Hematocrit (Bld) [Volume fraction] 41.4 % Invalid Interpretation Code 37.0 - 47.0 % AO Workflow SS Hemoglobin (Bld) [Mass/Vol] 14.0 G/dL Invalid Interpretation Code 12.0 - 16.0 G/dL AO Workflow SS Lymphocyte, Absolute 2.0 103/mcL Invalid Interpretation Code 0.8 - 3.9 10^3/mcL AO Workflow SS Lymphocytes/100 WBC (Bld) 28.3 % Invalid Interpretation Code 10.0 - 50.0 % AO Workflow SS MCH (RBC) [Entitic mass] 29.7 pg Invalid Interpretation Code 27.0 - 31.2 pg AO Workflow SS MCHC 33.8 G/dL Invalid Interpretation Code 33.0 - 37.0 G/dL AO Workflow SS MCV (RBC) [Entitic vol] 88.0 fL Invalid Interpretation Code 80.0 - 94.0 fL AO Workflow SS Monocyte, Absolute 0.6 103/mcL Invalid Interpretation Code 0.2 - 1.0 10^3/mcL AO Workflow SS Monocytes/100 WBC (Bld) 8.3 % Invalid Interpretation Code 1.7 - 13.0 % AO Workflow SS Neutrophil, Absolute 4.2 103/mcL Invalid Interpretation Code 2.9 - 6.2 10^3/mcL AO Workflow SS Neutrophils/100 WBC (Bld) 60.7 % Invalid Interpretation Code 37.0 - 80.0 % AO Workflow SS Platelet mean volume (Bld) [Entitic vol] 6.9 fL Invalid Interpretation Code 7.4 - 10.4 fL AO Workflow SS Platelets (Bld) [#/Vol] 383 103/mcL Invalid Interpretation Code 130 - 400 10^3/mcL AO Workflow SS RBC (Bld) [#/Vol] 4.70 106/mcL Invalid Interpretation Code 4.20 - 5.40 10^6/mcL AO Workflow SS WBC (Bld) [#/Vol] 6.9 103/mcL Invalid Interpretation Code 4.6 - 10.8 10^3/mcL AO Workflow SS LABORATORYOrdered By: Celestina Daniels on 09-06-2022 CRP [Mass/Vol] mg/dL Invalid Interpretation Code 0.0 - 0.9 mg/dL AO Chemistry S LABORATORYOrdered By: Teja Reis on 03-02-2022 Potassium [Moles/Vol] 4.8 mmol/L Invalid Interpretation Code 3.5 - 5.1 mmol/L AO ADM SS LABORATORYOrdered By: Eileen Shaver on 03-01-2022 Albumin BCP dye [Mass/Vol] 4.3 G/dL Invalid Interpretation Code 3.4 - 4.8 G/dL AO ADM SS Albumin/Globulin [Mass ratio] 1.5 {ratio} Invalid Interpretation Code 1.1 - 2.5 ratio AO ADM SS ALP [Catalytic activity/Vol] 94 U/L Invalid Interpretation Code 40 - 135 U/L AO ADM SS AST With P-5'-P [Catalytic activity/Vol] 21 U/L Invalid Interpretation Code 10 - 40 U/L AO ADM SS Bilirubin [Mass/Vol] 0.5 mg/dL Invalid Interpretation Code 0.2 - 1.0 mg/dL AO ADM SS Calcium [Mass/Vol] 9.5 mg/dL Invalid Interpretation Code 8.4 - 10.2 mg/dL AO ADM SS Chloride [Moles/Vol] 105 mmol/L Invalid Interpretation Code 98 - 107 mmol/L AO ADM SS Cholesterol [Mass/Vol] 195 mg/dL Invalid Interpretation Code 0 - 200 mg/dL AO ADM SS Cholesterol in HDL [Mass/Vol] 58 mg/dL Invalid Interpretation Code 40 - 60 mg/dL AO ADM SS Cholesterol in LDL [Mass/Vol] 103 mg/dL Invalid Interpretation Code 0 - 130 mg/dL AO ADM SS CO2 [Moles/Vol] 30 mmol/L Invalid Interpretation Code 23 - 31 mmol/L AO ADM SS Creatinine [Mass/Vol] 0.86 mg/dL Invalid Interpretation Code 0.55 - 1.02 mg/dL AO ADM SS Electrolyte Balance 6.0 mEq/L Invalid Interpretation Code 4.0 - 15.0 mEq/L AO ADM SS Globulin 2.9 G/dL Invalid Interpretation Code AO ADM SS Glucose [Mass/Vol] 85 mg/dL Invalid Interpretation Code 80 - 115 mg/dL AO ADM SS Potassium [Moles/Vol] 5.2 mmol/L Invalid Interpretation Code 3.5 - 5.1 mmol/L AO ADM SS Protein [Mass/Vol] 7.2 G/dL Invalid Interpretation Code 6.4 - 8.2 G/dL AO ADM SS Sodium [Moles/Vol] 141 mmol/L Invalid Interpretation Code 136 - 145 mmol/L AO ADM SS Triglyceride [Mass/Vol] 170 mg/dL Invalid Interpretation Code 0 - 150 mg/dL AO ADM SS TSH Qn 2.32 m[IU]/L Invalid Interpretation Code 0.36 - 3.74 mcIU/mL AO ADM SS Urea nitrogen [Mass/Vol] 15 mg/dL Invalid Interpretation Code 7 - 18 mg/dL AO ADM SS Urea nitrogen/Creatinine [Mass ratio] 17 ratio Invalid Interpretation Code 7 - 27 ratio AO ADM SS Uric Acid Lvl 4.5 mg/dL Invalid Interpretation Code 2.6 - 6.2 mg/dL AO ADM SS LABORATORYOrdered By: SYSTEM SYSTEM on 03-01-2022 GFR 81 ml/min/1.73sqm Invalid Interpretation Code AO Chemistry S GFR Non- 67 ml/min/1.73sqm Invalid Interpretation Code AO Chemistry S XR Foot - right AP and Later al and obliqueon 02-28-2021 IMPRESSION: Healing fourth proximal phalanx fracture. [place] Hand: P[facility]B Transcribe Date/Time: Feb 28 2021 4:31P Dictated by : EMILIA SAHU MD This examination was interpreted and the report reviewed and electronically signed by: EMILIA SAHU MD on Feb 28 2021 4:32PM [facility] DIVISION OF RADIOLOGY * * *Final Report* * * DATE OF EXAM: Feb 28 2021 4:09PM WOX [id number] - XR FOOT 3V AP/LAT/OBL RT / PROCEDURE REASON: Fracture toe 4th right * * * * Physician Interpretation * * * * CLINICAL INDICATION: Fourth toe fracture follow-up TECHNIQUE: 3 view radiographic study of the right COMPARISON: Radiograph dated January 18, 2021 FINDINGS: Healing oblique fracture of the fourth proximal phalanx with healing manifest by periosteal reaction and sclerosis about the fracture site noting the fracture lucency remains frankly evident. No new osseous abnormality identified. Miniscule dorsal calcaneal enthesophyte. DIVISION OF RADIOLOGY Provider, [facility] - 02/28/2021 * * *Final Report* * * DATE OF EXAM: Feb 28 2021 4:09PM WOX [id number] - XR FOOT 3V AP/LAT/OBL RT / PROCEDURE REASON: Fracture toe 4th right * * * * Physician Interpretation * * * * CLINICAL INDICATION: Fourth toe fracture follow-up TECHNIQUE: 3 view radiographic study of the right COMPARISON: Radiograph dated January 18, 2021 FINDINGS: Healing oblique fracture of the fourth proximal phalanx with healing manifest by periosteal reaction and sclerosis about the fracture site noting the fracture lucency remains frankly evident. No new osseous abnormality identified. Miniscule dorsal calcaneal enthesophyte. IMPRESSION IMPRESSION: Healing fourth proximal phalanx fracture. [place] Hand: KARENA Transcribe Date/Time: Feb 28 2021 4:31P Dictated by : EMILIA SAHU MD This examination was interpreted and the report reviewed and electronically signed by: EMILIA SAHU MD on Feb 28 2021 4:32PM EST [facility] Radiology Study observation (narrative) [facility] XR Foot - right AP and Later al and obliqueOrdered By: Cc Provider on 02-28-2021 [facility] XR Foot - right AP and Later al and obliqueon 01-18-2021 IMPRESSION: Nondisplaced oblique fracture of the proximal phalanx of the fourth digit of the right foot. [facility] Transcribe Date/Time: Jan 18 2021 10:44A Dictated by : HATTIE OBREGON MD This examination was interpreted and the report reviewed and electronically signed by: HATTIE OBREGON MD on Jan 18 2021 10:46AM EST DIVISION OF RADIOLOGY * * *Final Report* * * DATE OF EXAM: Jan 18 2021 10:40AM WOX 5337 - XR FOOT 3V AP/LAT/OBL RT / PROCEDURE REASON: Foot pain, right * * * * Physician Interpretation * * * * History: Hit fourth toe against chair FINDINGS: AP, lateral, and oblique views of the right foot have been obtained. There is nondisplaced oblique fracture of the shaft of the proximal phalanx, fourth digit. No further fracture is seen. Joint spaces are maintained. DIVISION OF RADIOLOGY Provider, [facility] - 01/18/2021 * * *Final Report* * * DATE OF EXAM: Jan 18 2021 10:40AM WOX 5337 - XR FOOT 3V AP/LAT/OBL RT / PROCEDURE REASON: Foot pain, right * * * * Physician Interpretation * * * * History: Hit fourth toe against chair FINDINGS: AP, lateral, and oblique views of the right foot have been obtained. There is nondisplaced oblique fracture of the shaft of the proximal phalanx, fourth digit. No further fracture is seen. Joint spaces are maintained. IMPRESSION IMPRESSION: Nondisplaced oblique fracture of the proximal phalanx of the fourth digit of the right foot. [place] Hand: PSCB Transcribe Date/Time: Jan 18 2021 10:44A Dictated by : HATTIE OBREGON MD This examination was interpreted and the report reviewed and electronically signed by: HATTIE OBREGON MD on Jan 18 2021 10:46AM EST [facility] Radiology Study observation (narrative) [facility] XR Foot - right AP and Later al and obliqueOrdered By: [facility] Provider on 01-18-2021 [facility] Vital Signs Date Time Vital Sign Value Performing Clinician Anthony schneider 04-26-2023 18:42-0400 Body temperature 98.29 [degF] Melony Ann APRN.CNP Work Phone: [facility] 04-26-2023 18:42-0400 Body weight 72.12 kg Melony Ann APRN.CNP Work Phone: [facility] 04-26-2023 18:42-0400 Diastolic blood pressure 80 mm[Hg] Melony Ann APRN.CNP Work Phone: [facility] 04-26-2023 18:42-0400 Heart rate 78 /min Melony Ann APRN.CNP Work Phone: [facility] 04-26-2023 18:42-0400 Respiratory rate 16 /min Melony Marissa RICKSHAW DRIVER.SUPERVISOR BAKING Work Phone: [facility] 04-26-2023 18:42-0400 SaO2% (BldA) [Mass fraction] 98 % Melony Marissa RICKSHAW DRIVER.SUPERVISOR BAKING Work Phone: [facility] 04-26-2023 18:42-0400 Systolic blood pressure 132 mm[Hg] Melony Marissa RICKSHAW DRIVER.SUPERVISOR BAKING Work Phone: [facility] Encounters Encounter Date Encounter Type Care Provider Facility Start: 03-13-2025 End: 03-13-[address] ADAM SINGH DO Facility[facility] Start: 03-13-2025 End: 03-13-[address] ADAM SINGH DO [facility] Start: 02-26-2025 End: 02-26-[address] ADAM SINHG DO Facility[facility] Start: 02-26-2025 End: 02-26-[address] ADAM SINGH DO [facility] Start: 10-15-2024 End: 10-15-[address] ADAM SINGH DO Facility[facility] Start: 10-15-2024 End: 10-15-[address] ADAM SINGH DO [facility] Start: 08-16-2024 End: 08-16-2024 ambulatory CHENTE BLOUNT DO Facility:[facility] Start: 08-16-2024 End: 08-16-2024 Patient encounter procedure CHENTE BLOUNT DO [facility] Start: 08-14-2024 End: 08-18-[address] ADAM SINGH DO Facility[facility] Start: 08-14-2024 End: 08-18-[address] ADAM SINGH DO [facility] Start: 08-14-2024 End: 08-14-[address] ADAM SINGH DO Facility[facility] Start: 08-14-2024 End: 08-14-2024 Patient encounter procedure CHENTE BLOUNT DO [facility] Start: 04-09-2024 End: 04-09-2024 ambulatory Adam Singh Facility:[facility] Start: 02-13-2024 End: 02-13-[address] ADAM SINGH DO Facility:[facility] Start: 02-13-2024 End: 02-13-[address] ADAM SINGH DO [facility] Start: 07-31-2023 End: 08-04-[address] ADAM SINGH DO Facility:[facility] Start: 07-31-2023 End: 08-04-2023 Encounter for general adult medical examination without abnormal findings DR ADAM SINGH DO Facility:[facility] Start: 07-31-2023 End: 08-04-[address] ADAM SINGH DO [facility] Start: 07-06-2023 End: 07-06-[address] ADAM SINGH DO Facility:[facility] Start: 04-27-2023 Telephone encounter Melony Maxwell APRN.SUPERVISOR BAKING Work Phone: [facility] Comment on above: Results Start: 04-26-2023 End: 04-26-2023 ambulatory SHAHLA LEARY Facility:[facility] Start: 04-26-2023 End: 04-26-2023 Patient encounter procedure Melony Ann APRN.SUPERVISOR BAKING Work Phone: [facility] Comment on above: Viral URI with cough (Primary Dx); Sore throat Start: 03-30-2023 End: 03-30-2023 ambulatory [facility] Work Phone: Start: 03-30-2023 End: 03-30-2023 Patient encounter procedure [facility] Work Phone: Start: 03-05-2023 End: 03-05-[address] ADAM SINGH DO Facility:[facility] Start: 01-16-2023 End: 01-16-[address] ADAM SINGH DO [facility] Start: 12-09-2022 Telephone encounter Dick Bautista MD Work Phone: [facility] Comment on above: Results Start: 12-08-2022 End: 12-08-2022 ambulatory SHAHLA LEARY Facility:[facility] Start: 09-06-2022 End: 09-06-[address] ADAM SINGH DO [facility] Start: 04-02-2022 End: 04-02-2022 ambulatory Adelina Hamilton APRN.SUPERVISOR BAKING Work Phone: Telemedicine Comment on above: Treatment not availa ble (Primary Dx) COVID-19 virus infec tion (Primary Dx) Treatment not availa ble (Primary Dx); Patient left without being seen Start: 04-02-2022 End: 04-02-2022 Telemedicine consultation with patient Adelina Alfonso PERALESSUPERVISOR BAKING Work Phone: [facility] Start: 03-21-2022 End: 03-21-2022 Patient encounter procedure [facility] Start: 03-02-2022 End: 03-02-[address] ADAM SINGH DO [facility] Start: 03-01-2022 End: 03-01-[address] ADAM SINGH DO [facility] Start: 02-28-2021 End: 02-28-2021 Subsequent hospital visit by physician [facility] Work Phone: Radiology Start: 01-18-2021 End: 01-18-2021 Subsequent hospital visit by physician X[facility] Work Phone: Radiology Comment on above: Foot pain, right [M7 9.671] Procedures Date Procedure Procedure Detail Performing Clinician Start: 07-13-2023 Carpal tunnel syndro me of right wrist (disorder) CHENTE BLOUNT DO Start: 04-26-2023 STREP A MOLECULAR (POC) Melony Ann RICKSHAW DRIVER.SUPERVISOR BAKING Work Phone: Start: 03-30-2023 Screening mammography Start: 03-21-2022 Screening mammography Start: 02-28-2021 Radex foot complete minimum 3 views [facility] Provider Start: 01-18-2021 Radex foot complete minimum 3 views Rina Crump RICKSHAW DRIVER.SUPERVISOR BAKING Work Phone: Start: 06-05-2016 Colonoscopy Adelina murdock RICKSHAW DRIVER.SUPERVISOR BAKING Work Phone: Start: 07-31-[address] ADAM SINGH DO Plan of Treatment Date Care Activity Detail Author Start: 2034 RSV Vaccine (1 - 1-dose 75+ series) RSV Vaccine (1 - 1-dose 75+ series) [facility] Start: 07-16-2032 Urine microalbumin profile DTaP,Tdap,Td Vaccine (2 - Td or Tdap) [facility] Start: 06-05-2026 Colonoscopy COLONOSCOPY [facility] Start: 06-05-2026 COLORECTAL CANCER SCREENING COLORECTAL CANCER SCREENING [facility] Start: 06-05-2026 Screening for malignant neoplasm of colon [facility] Start: 04-13-2024 Covid-19 Vaccine ( season) Covid-19 Vaccine () [facility] Start: 04-13-2024 Influenza vaccination Influenza Vaccine (#1) [facility] Start: 08-13-2022 DEPRESSION ASSESSMENT DEPRESSION ASSESSMENT [facility] Start: 04-13-2022 Influenza vaccination INFLUENZA (#1) [facility] Start: 2009 SHINGRIX VACCINE (1 of 2) SHINGRIX VACCINE (1 of 2) [facility] Start: 2004 COLOGUARD (FIT-DNA) COLOGUARD (FIT-DNA) [facility] Start: [address] COLONOGRAPHY [facility] Start: 2004 DIABETES SCREEN DIABETES SCREEN [facility] Start: 2004 Diabetes Screening Diabetes Screening [facility] Start: 2004 FECAL OCCULT BLOOD FECAL OCCULT BLOOD [facility] Start: 2004 Lipid 1996 panel - Serum or Plasma Lipid Screening [facility] Start: 2004 Lipid panel Lipid Screening [facility] Start: 2004 LIPID SCREEN LIPID SCREEN [facility] Start: 2004 Screening for malignant neoplasm of colon [facility] Start: 2004 SIGMOIDOSCOPY SIGMOIDOSCOPY [facility] Start: 1999 Mammography [facility] Start: 1999 Screening for malignant neoplasm of breast Mammogram Screening [facility] Start: 1989 HPV TESTING HPV TESTING [facility] Start: 1980 PAP TESTING PAP TESTING [facility] Start: 1980 Screening for malignant neoplasm of cervix Cervical Cancer Screening [facility] Start: 1978 Urine microalbumin profile [facility] Start: 1977 Anxiety Screening Anxiety Screening [facility] Start: 1977 Depression Screening Depression Screening [facility] Start: 1977 HEPATITIS C SCREENING HEPATITIS C SCREENING [facility] Start: 1977 Hepatitis C screening Hepatitis C Screening [facility] Start: 1977 HIV SCREENING HIV SCREENING [facility] Start: 1977 HIV screening HIV Screening [facility] Start: 1971 Adult depression screening assessment DEPRESSION SCREENING [facility] COVID & INFLUENZA A/ B & RSV NAAT, ROUTINE COVID & INFLUENZA A/B & RSV NAAT, ROUTINE Microbiology Routine Viral URI with cough 04/26/2023 7:02 PM EDT [facility] Work Phone: ROUTINE FLU A/B + RSV ROUTINE FL U A/B + RSV Lab Routine Viral URI with cough 04/26/2023 7:02 PM EDT [facility] Work Phone: SARS-CoV-2 (COVID-19 ) RNA [Presence] in Respiratory specimen by DYLLAN with probe detection COVID NAAT, UPPER RESPIRATORY, ROUTINE Microbiology Routine Viral URI with cough 04/26/2023 7:02 PM EDT [facility] Work Phone: Immunizations Immunization Date Immunization Notes Care Provider [facility] 05-14-2024 influenza virus vaccine, unspecified formulation CHENTE BLOUNT DO [facility] Comment on above: Result Comment: 2024: VIS DATE: 03/19/2015 03-30-2023 influenza virus vaccine, unspecified formulation DR ADAM SINGH DO [facility] 03-30-2023 SARS-CoV-2 (CV19)[id number]-[address] ADAM SINGH DO [facility] 07-16-2022 tetanus toxoid, redu joan diphtheria toxoid, and acellular pertussis vaccine, adsorbed DR ADAM SINGH DO [facility] 05-08-2022 influenza virus vaccine, unspecified formulation DR ADAM SINGH DO [facility] 11-19-2021 SARS-CoV-2 mRNA (xaukvbkwvfv-xech-dnkgv se) vaccine DR ADAM SINGH DO [facility] 05-13-2021 influenza virus vaccine, unspecified formulation DR ADAM SINGH DO [facility] 05-13-2021 SARS-CoV-2 mRNA (tozinameran) vaccine DR ADAM SINGH DO [facility] Comment on above: Result Comment: 2021: [id number] 10-22-2020 SARS-CoV-2 mRNA (tozinameran) vaccine DR ADAM SINGH DO [facility] 10-01-2020 SARS-CoV-2 mRNA (tozinameran) vaccine DR ADAM SINGH DO [facility] Comment on above: Result Comment: 2021: [id number] 07-22-2020 influenza virus vaccine, unspecified formulation DR ADAM SINGH DO [facility] 10-13-[address] ADAM SINGH DO [facility] Comment on above: Result Comment: Iftikhararsenio Amanda Garcia 07-14-[address] ADAM SINGH DO [facility] 05-28-2019 influenza virus vaccine, unspecified formulation DR ADAM SINGH DO [facility] 08-24-2017 influenza virus vaccine, unspecified formulation DR ADAM SINGH DO [facility] 06-17-2014 influenza virus vaccine, unspecified formulation DR ADAM SINGH DO [facility] 03-18-2013 hepatitis A vaccine, adult dosage DR ADAM SINGH DO [facility] 08-13-2011 hepatitis A vaccine, adult dosage DR ADAM SINGH DO [facility] Payers Date Payer Category Payer Self-pay [id number] 2019 Private Health Insurance 1 [id number] 2015 Unknown [id number] 2015 Unknown [id number] 1959 Unknown [id number] 2.16.8 [id number] 1959 Unknown [id number] 2.16.8 [id number] 1959 Unknown [id number] 2.16.8 [id number] 1959 Unknown [id number] 2.16.8 [id number] 1959 Unknown [id number] 2.16. [id number] 1959 Unknown [id number] 2.16. [id number] 1959 Unknown [id number] 2.16.8 [id number] 1959 Unknown [id number] 2.16.8 [id number] 1959 Unknown [id number] 2.16.8 [id number] 1959 Unknown [id number] 2.16.8 [id number] Unknown [id number] 2.16.8 [id number] Social History Date Type Detail Facility Start: 10-24-2018 End: 03-13-2019 Tobacco smoking status Never smoked tobacco (finding) [facility] Comment on above: no tobacco smoke exp osure Start: 1960 Sex Assigned At Female A [facility] Start: 10-24-2018 End: 04-26-2023 Tobacco use and exposure Smokeless tobacco non-user [facility] Start: 01-18-2021 End: 04-26-2023 Alcohol intake Current drinker of alcohol (finding) [facility] Start: 04-26-2016 History SDOH Alcohol Comment social [facility] Start: 1960 Sex Assigned At Not on file [facility] Start: 07-18-2020 End: 04-26-2023 History of Social function [facility] Start: 07-18-2020 End: 04-26-2023 Tobacco use panel [facility] National Score (1-10 0), lower number is lower risk Not on file [facility] Start: 01-29-2021 End: 02-28-2021 Exposure to SARS-CoV-2 (event) Not sure [facility] Sexual Orientation [facility]deendy [facility] Start: 02-05-2019 Sex Female (finding) [place] Clinical Notes 01-18-2021 to 10-15-2024 Note Date & Type Note Facility 10-15-2024 Note Exam Date Time Procedure Performing Provider Status 10/15/24 11:48 AM BD Bone Density DEXA Axial Skeleton NORBERT LANTIGUA DO; Auth (Verified) [id number] ORIGINAL EXAMINATION: BONE DENSITOMETRY 10/15/2024 11:51 am TECHNIQUE: A bone density dual x-ray absorptiometry (DEXA) scan was performed of the axial (e.g. hips, spine) and/or appendicular (e.g. radius) skeleton as appropriate. COMPARISON: None. HISTORY: ORDERING SYSTEM PROVIDED HISTORY: Reason for Exam: Osteoporosis Screening FINDINGS: T Score Left Femoral Neck: -1.4 Left Femoral Neck: 0.692 (g/cm2) T Score Left Hip: -0.5 Left Hip: 0.876 (g/cm2) T Score Lumbar Spine: -0.8 Lumbar Spine: 0.961 (g/cmd2) FRAX: 10 year fracture risk assessment Major osteoporotic fracture: 14% Hip fracture: 1.4% IMPRESSION: Osteopenia by WHO criteria. World Health Organization criteria: (Comparing with young normal sex matched population) - Normal: T-score at or above -1 SD (standard deviation) - Osteopenia: T-score between -1 and -2.5 SD - Osteoporosis: T-score at or below -2.5 SD The NOF recommends that FDA-approved medical therapies be considered in post-menopausal women and men age >/= 50 years with a: * Hip or vertebral fracture, or * T-score of /= 20% for major osteoporotic fractures or * >/= 3% for hip fractures All treatment decisions require clinical judgement and consideration of individual patient factors, including patient preferences, comorbidities, previous drug use, risk factors not captured in the FRAX registered model (e.g., frailty, falls, vitamin D deficiency, increased bone turnover, interval significant decline in bone density) and possible under- or over-estimation of fracture risk by FRAX. Interpreted by: Norbert Lantigua DO Preliminary Report By: Norbert Lantigua DO Electronically signed By Norbert Lantigua DO Dictated Date: 10/15/2024 1:18:13 PM Prelim Date: 10/15/2024 1:18:55 PM Sign Date: 10/15/2024 1:18:55 PM Ordering Provider: ADAM SINGH [facility]12-22-2023 Note SATISFACTORY FOR EVALUATION Endocervical/Transformational zone component present [facility] 12-22-2023 Note SATISFACTORY FOR EVALUATION Endocervical/Transformational zone component present [facility] 12-22-2023 Note SATISFACTORY FOR EVALUATION Endocervical/Transformational zone component present [facility] 12-22-2023 Note SATISFACTORY FOR EVALUATION Endocervical/Transformational zone component present [facility] 12-22-2023 Note SATISFACTORY FOR EVALUATION Endocervical/Transformational zone component present [facility] 12-22-2023 Note SATISFACTORY FOR EVALUATION Endocervical/Transformational zone component present [facility] 12-22-2023 Note SATISFACTORY FOR EVALUATION Endocervical/Transformational zone component present [facility] 09-15-2023 Miscellaneous Notes* Telephone Encounter - Luz Marina Poole - 04/27/2023 11:22 AM EDT Patient given results and verbalized understanding of instructions given. Luz Marina Poole * Telephone Encounter - Luz Marina Poole - 04/27/2023 11:21 AM EDT ----- Message from Melony Ann APRN.SUPERVISOR BAKING sent at 04/27/2023 8:52 AM EDT ----- Please advise patient the COVID, flu, RSV test was negative. [facility] NoteHNO ID: [id number] Author: Melony Ann APRN.SUPERVISOR BAKING Service: ? Author Type: Nurse Practitioner Type: Progress Notes Filed: 04/26/2023 7:01 PM Note Text: Subjective Sore Throat Associated symptoms include congestion and coughing. Pertinent negatives include no ear pain. Desi Rodriguez is a 62 year old female who presents with sore throat, cough, runny nose for the past 2 days. Ibuprofen was taken for her symptoms. She took a COVID test at home on the first day of symptoms which was negative. She has not had a fever. Review of Systems Constitutional: Negative for chills and fever. HENT: Positive for congestion and sore throat. Negative for ear pain. Respiratory: Positive for cough. Cardiovascular: Negative. BP 132/80 Pulse 78 Temp 36.8 ?C (98.3 ?F) Resp 16 Wt 72.1 kg (159 lb) SpO2 98% BMI 28.17 kg/m? PAST MEDICAL HISTORY Diagnosis Date NEGATIVE MEDICAL HISTORY PAST SURGICAL HISTORY Procedure Laterality Date COLONOSCOPY FLX DX W/COLLJ SPEC WHEN PFRMD 06/05/17 Colonoscopy TUBAL LIGATION HX 07/31/1991 ALLERGIES Patient has no known allergies. MEDICATIONS rosuvastatin (CRESTOR) 10 mg tablet Take 0.5 tablets by mouth daily at bedtime. levothyroxine (SYNTHROID) 50 mcg tablet Multivitamin capsule Take 1 capsule by mouth once daily. amLODIPine (NORVASC) 5 mg tablet Take 1 tablet by mouth every afternoon. FAMILY HISTORY Problem Relation Age of Onset Heart Father Social History Tobacco Use Smoking status: Never Smokeless tobacco: Never Substance Use Topics Alcohol use: Yes Comment: social Drug use: No Objective Physical Exam Vitals and nursing note reviewed. Constitutional: Appearance: Normal appearance. HENT: Right Ear: Tympanic membrane, ear canal and external ear normal. Left Ear: Tympanic membrane, ear canal and external ear normal. Mouth/Throat: Mouth: Mucous membranes are moist. Pharynx: Uvula midline. Posterior oropharyngeal erythema present. No oropharyngeal exudate. Cardiovascular: Rate and Rhythm: Normal rate and regular rhythm. Heart sounds: Normal heart sounds. Pulmonary: Effort: Pulmonary effort is normal. No respiratory distress. Breath sounds: Normal breath sounds. No wheezing or rales. Musculoskeletal: Cervical back: Neck supple. Lymphadenopathy: Cervical: No cervical adenopathy. Skin: General: Skin is warm and dry. Findings: No erythema or rash. Neurological: Mental Status: She is alert. ASSESSMENT/PLAN: 1. Viral URI with cough - ICD9: 465.9, ICD10: J06.9 (primary diagnosis) - Discussed viral etiology and rationale for treatment. - Symptomatic treatment with prn analgesia - Supportive care with fluids and rest - COVID AND INFLUENZA A/B AND RSV NAAT, ROUTINE - COVID NAAT, UPPER RESPIRATORY, ROUTINE - ROUTINE FLU A/B + RSV 2. Sore throat - ICD9: 462, ICD10: J02.9 - suspect viral - Group A strep molecular testing negative - Discussed supportive care treatment with fluids, rest and analgesia. - STREP A MOLECULAR (POC) - Follow-up with your PCP in 3-5 days if symptoms have not improved or sooner if symptoms worsen - Discussed red flags and need for immediate medical evaluation if any occur. - Discussed supportive care treatment with fluids, rest and analgesia. - Discussed expected course of illness Melony Ann APRN.[facility]09-14-2023 Instructions* Patient Instructions* Melony Ann APRN.[facility] - 04/26/2023 6:55 PM EDT ASSESSMENT/PLAN: 1. Viral URI with cough - ICD9: 465.9, ICD10: J06.9 (primary diagnosis) - Discussed viral etiology and rationale for treatment. - Symptomatic treatment with prn analgesia - Supportive care with fluids and rest - COVID & INFLUENZA A/B & RSV NAAT, ROUTINE - COVID NAAT, UPPER RESPIRATORY, ROUTINE - ROUTINE FLU A/B + RSV 2. Sore throat - ICD9: 462, ICD10: J02.9 - suspect viral - Group A strep molecular testing negative - Discussed supportive care treatment with fluids, rest and analgesia. - STREP A MOLECULAR (POC) - Follow-up with your PCP in 3-5 days if symptoms have not improved or sooner if symptoms worsen - Discussed red flags and need for immediate medical evaluation if any occur. - Discussed supportive care treatment with fluids, rest and analgesia. - Discussed expected course of illness Melony Ann APRN.SUPERVISOR BAKING Treatment for Viral Upper Respiratory Tract Infections Your body will kill off the virus by itself. Additionally, you can prime your body's immune system.This may help you get better more quickly. Drink lots of fluids Make sure you are eating well Get plenty of rest We do not have any medications that kill off these viruses. Antibiotics are used to treat bacterialinfections; however, they are not active against viral infections. There are some things that mighthelp you feel better, though. Vaporizers, humidifiers, hot showers, and hot fluids help open respiratory and sinus passages [place] [facility] [place] may offer relief of nasal and head congestion Riky's Vapor Rub may relieve congestion Tylenol and Advil help control fevers and headaches Salt water gargles help relieve sore throats Chloraceptic spray or throat lozenges may also help relieve sore throat symptoms Occasionally, viral infections turn into something more serious. You should see your doctor or return to the Urgent Care if: You have fevers for longer than five days You have fevers above 102 degrees You are still sick after 10 days You have shortness of breath or wheezing After several days you are getting worse rather than better [facility] History of Present illness Narrative* Melony Ann APRN.SUPERVISOR BAKING - 04/26/2023 6:51 PM EDT Subjective Sore Throat Associated symptoms include congestion and coughing. Pertinent negatives include no ear pain. Desi Rodriguez is a 62 year old female who presents with sore throat, cough, runny nose for the past 2 days. Ibuprofen was taken for her symptoms. She took a COVID test at home on the first day of symptoms which was negative. She has not had a fever. Review of Systems Constitutional: Negative for chills and fever. HENT: Positive for congestion and sore throat. Negative for ear pain. Respiratory: Positive for cough. Cardiovascular: Negative. BP 132/80 Pulse 78 Temp 36.8 C (98.3 F) Resp 16 Wt 72.1 kg (159 lb) SpO2 98% BMI 28.17 kg/m PAST MEDICAL HISTORY Diagnosis Date NEGATIVE MEDICAL HISTORY PAST SURGICAL HISTORY Procedure Laterality Date COLONOSCOPY FLX DX W/COLLJ SPEC WHEN PFRMD 06/05/17 Colonoscopy TUBAL LIGATION HX 07/31/1991 ALLERGIES Patient has no known allergies. MEDICATIONS rosuvastatin (CRESTOR) 10 mg tablet Take 0.5 tablets by mouth daily at bedtime. levothyroxine (SYNTHROID) 50 mcg tablet Multivitamin capsule Take 1 capsule by mouth once daily. amLODIPine (NORVASC) 5 mg tablet Take 1 tablet by mouth every afternoon. FAMILY HISTORY Problem Relation Age of Onset Heart Father Social History Tobacco Use Smoking status: Never Smokeless tobacco: Never Substance Use Topics Alcohol use: Yes Comment: social Drug use: No Objective Physical Exam Vitals and nursing note reviewed. Constitutional: Appearance: Normal appearance. HENT: Right Ear: Tympanic membrane, ear canal and external ear normal. Left Ear: Tympanic membrane, ear canal and external ear normal. Mouth/Throat: Mouth: Mucous membranes are moist. Pharynx: Uvula midline. Posterior oropharyngeal erythema present. No oropharyngeal exudate. Cardiovascular: Rate and Rhythm: Normal rate and regular rhythm. Heart sounds: Normal heart sounds. Pulmonary: Effort: Pulmonary effort is normal. No respiratory distress. Breath sounds: Normal breath sounds. No wheezing or rales. Musculoskeletal: Cervical back: Neck supple. Lymphadenopathy: Cervical: No cervical adenopathy. Skin: General: Skin is warm and dry. Findings: No erythema or rash. Neurological: Mental Status: She is alert. ASSESSMENT/PLAN: 1. Viral URI with cough - ICD9: 465.9, ICD10: J06.9 (primary diagnosis) - Discussed viral etiology and rationale for treatment. - Symptomatic treatment with prn analgesia - Supportive care with fluids and rest - COVID & INFLUENZA A/B & RSV NAAT, ROUTINE - COVID NAAT, UPPER RESPIRATORY, ROUTINE - ROUTINE FLU A/B + RSV 2. Sore throat - ICD9: 462, ICD10: J02.9 - suspect viral - Group A strep molecular testing negative - Discussed supportive care treatment with fluids, rest and analgesia. - STREP A MOLECULAR (POC) - Follow-up with your PCP in 3-5 days if symptoms have not improved or sooner if symptoms worsen - Discussed red flags and need for immediate medical evaluation if any occur. - Discussed supportive care treatment with fluids, rest and analgesia. - Discussed expected course of illness Melony Ann APRN.SUPERVISOR BAKING documented in this encounterCommunity [facility]23 Miscellaneous Notes* Telephone Encounter - Luz Marina Poole - 12/09/2022 10:04 AM EDT Patient given results and verbalized understanding of instructions given. Luz Marina Poole * Telephone Encounter - Luz Marina Poole - 12/09/2022 10:04 AM EDT ----- Message from Dick Frazier MD sent at 12/09/2022 8:09 AM EDT ----- Negative COVID. documented in this encounterCommunity [facility]04-28-2023 NoteHNO ID: [id number] Author: Dick Frazier MD Service: ? Author Type: Physician Type: Progress Notes Filed: 12/08/2022 6:55 PM Note Text: Patient presents with: Sore Throat: x 1 day HPI: Feeling sick since yesterday. Teaches kindergarten. Positive symptoms: sore throat, Fatigue, some sneezing Negative symptoms: Cough, Nasal Congestion, Rhinorrhea, Fever, Malaise, OTC: none. Home COVID test negative. She is having a family get together with her elderly father tomorrow and is concerned about exposing him to illness. MEDICATIONS: Current Outpatient Medications Medication Sig rosuvastatin (CRESTOR) 10 mg tablet Take 0.5 tablets by mouth daily at bedtime. levothyroxine (SYNTHROID) 50 mcg tablet Multivitamin capsule Take 1 capsule by mouth once daily. No current facility-administered medications for this visit. ALLERGIES: ALLERGIES No Known Allergies VITALS: BP 144/84 Pulse 84 Temp 37 ?C (98.6 ?F) Resp 16 Wt 74.4 kg (164 lb) SpO2 97% BMI 29.05 kg/m? PHYSICAL EXAM: GEN: mildly ill appearing HEENT: PERRL, EOMI, conjunctiva clear Sinuses: non-tender frontal sinus, non-tender maxillary sinuses Throat: moist mucous membranes, mild erythema, no exudate Neck: supple, no thyromegaly, no lymphadenopathy LUNGS: no cough, no increased WOB ASSESSMENT/PLAN: 1. Sore throat - ICD9: 462, ICD10: J02.9 - STREP A MOLECULAR (POC) - negative. - suspect viral pharyngitis. - Discussed contagiousness. - 2019 CORONAVIRUS Dick Frazier, [facility]08-21-2022 History of Present illness Narrative* Adelina Hamilton APRN.CNP - 04/02/2022 12:00 PM EDT Patient left virtual waiting room prior to attempted connection; patient left without being seen. Adelina Hamilton APRN.CNP documented in this encounterCommunity [facility] Hospital08-21-2022 History of Present illness Narrative* Adelina Hamilton APRN.CNP - 04/02/2022 11:54 AM EDT Patient left virtual waiting room prior to attempted connection; patient left without being seen. Adelina Hamilton APRN.CNP documented in this encounterCleveland [id number] Instructions* Patient Instructions* Osvaldo Mancilla PA-C - 04/02/2022 11:30 AM EDT Resources for Managing Anxiety During COVID Crisis https://www.Patience https://www.cdc.gov/coronavirus/2019-ncov/prepare/ygykqyhc-avepkq-gtbdudx.html https://coronavirus.[place].gov/wps/portal/gov/covid-19/home/resources/resources-fo s-sigyjq-uoyxtf-nsnh-zae-trfvf-19-pandemic www.[employer]/us/blog/byy-sjxrl-pivqqeknpiin//pmg-djdscs-ncaciip irus-anxiety https://www.[employer]/us/blog/iox-axecf-zdpilbx//28-huzx-xqlmpwu bs-lxfo-gczjrlykue-now https://www.[employer]/us/blog/experimentations//8-gcfcktnxjle-rx wwxwqdabt-wntkkyzeqt-lmudhhddt Beginning Home Isolation Isolation is used to separate people infected with SARS-CoV-2, the virus that causes COVID-19, frompeople who are not infected. People who are in isolation should stay home until it s safe for them to be around others. In the home, anyone sick or infected should separate themselves from others by staying in a specific sick room or area and using a separate bathroom (if available). Isolation or Quarantine: What's the difference? Quarantine keeps someone who might have been exposed to the virus away from others. Isolation keeps someone who is infected with the virus away from others, even in their home. Who needs to isolate People who have COVID-19 People who have symptoms of COVID-19 and are able to recover at home People who have no symptoms (are asymptomatic) but have tested positive for infection with SARS-CoV-2 Steps to take Stay home except to get medical care Monitor your symptoms. Stay in a separate room from other household members, if possible Use a separate bathroom, if possible Avoid contact with other members of the household and pets Don t share personal household items, like cups, towels, and utensils Wear a mask when around other people, if you are able to When to seek emergency medical attention Look for emergency warning signs* for COVID-19. If someone is showing any of these signs, seek emergency medical care immediately: Trouble breathing Persistent pain or pressure in the chest New confusion Inability to wake or stay awake Bluish lips or face *This list is not all possible symptoms. Please call your medical provider for any other symptoms that are severe or concerning to you. Call 911 or call ahead to your local emergency facility: Notify the monotype operator that you are seeking care for someone who has or may have COVID-19. Ending Home Isolation - When you can be around others after you had or likely had COVID-19 When you can be around others after you had or likely had COVID-19 If You Test Positive for COVID-19 (Isolation) Everyone, regardless of vaccination status: Stay home for 5 days. Note: Day 0 is your first day of symptoms or the date of collection of a positive viral test if no symptoms. Day 1 is the first full day after symptoms developed or test specimen was collected. If you have no symptoms or your symptoms are resolving after 5 days, you can leave your house. Continue to wear a mask around others for 5 additional days. If you have a fever, continue to stay home until your fever resolves, even if it is longer than 5 days. If You Were Exposed to Someone with COVID-19 (Quarantine) If you: 1. Have been boosted OR 2. Completed the primary series of Pfizer or Moderna vaccine within the last 6 months OR 3. Completed the primary series of J&J vaccine within the last 2 months THEN: 1. Wear a mask around others for 10 days. 2. Test on day 5, if possible. If you develop symptoms get a test and stay home. If You Were Exposed to Someone with COVID-19 (Quarantine) If you: 1. Completed the primary series of Pfizer or Moderna vaccine over 6 months ago and are not boosted OR 2. Completed the primary series of J&J over 2 months ago and are not boosted OR 3. Are unvaccinated THEN: 1. Stay home for 5 days. After that continue to wear a mask around others for 5 additional days. 2. If you can't quarantine you must wear a mask for 10 days. 3. Test on day 5 if possible. If you develop symptoms get a test and stay home. I had COVID-19 or I tested positive for COVID-19 and I have a weakened immune system If you have a weakened immune system (immunocompromised) due to a health condition or medication, you might need to stay home and isolate longer than 10 days. Talk to your healthcare provider for more information. Your doctor may work with an infectious disease expert at your local health department to determinewhen you can be around others. How to Manage Common Symptoms Associated with COVID for Adults Fever- Fever is a temperature over 100.4 F and can occur when the body is fighting an infection. Tohelp treat a fever: Drink plenty of fluids and stay well hydrated. Eat small amounts of easy to digest food. Rest. Your body needs rest to recover, but getting up and moving around the house frequently is a good idea. You should try to continue doing your normal daily activities (bathing, toileting, grooming, cooking), though you will probably feel tired, and need to rest often. Avoid any heavy activity or exercise, as this will increase your body temperature. Dress in light clothing and stay covered in a light sheet. Keep the room temperature cool. Take a slightly warm (not cold or cool) bath, or apply damp washcloths to the forehead and wrists. Cough- Cough is a common symptom associated with COVID and can be bothersome. To help treat a cough: Stay well hydrated. Try warm water or tea with lemon and/or honey to help soothe the cough. Use a humidifier to add moisture to the air. Try a product with menthol, like a cough drop or a rub for your chest such as Vicks, which can helpreduce cough. Try cough drops. Avoid smoking and other strong odors or perfumes. Try breathing exercises to keep your lungs open and clear. Take a big deep breath through your noseand hold for 5 seconds before slowly releasing. Repeat frequently, while you are awake. Congestion- Runny nose or nasal congestion can occur with COVID. Treatment can help relieve symptoms: Try OTC nasal saline spray, or nasal saline rinse to relieve mucus congestion. Nasal strips can help keep nasal passages open, to increase airflow. Elevating your head with an extra pillow in bed can help reduce congestion. Using a humidifier can increase moisture in the air, and make breathing easier. Sore Throat- Another common symptom with COVID, can be managed at home by: Stay well hydrated. Gargle with salt water - mix teaspoon salt with 1 cup of warm water and gargle. This helps to loosen mucus in the back of the throat and may reduce discomfort. Try ice chips, popsicles or lozenges to soothe the throat. Nausea/Vomiting/Diarrhea- These are common symptoms, and staying hydrated is most important. If you are nauseous or vomiting, start with small sips of water every 10-15 minutes and increase astolerated. You can try sucking an ice cube too. If tolerating, you can try pedialyte or Gatorade, or flat sprite or marcel-simeon. Start slowly and increase as you are able to. Instead of meals, try smaller, more frequent snacks. Try eating bland foods like crackers, toast, rice, and applesauce. Avoid spicy, greasy or fried foods and dairy containing foods. Even if you aren't feeling hungry due to lack of smell or taste, it is important to try to take in some food when you are able. After drinking and eating, rest in an upright position for up to two hours as needed to help decrease nauseous feelings. Try closing your eyes, avoid moving and watching TV. Avoid strong odors that can make you feel more nauseated. When to seek emergency medical attention Look for emergency warning signs for COVID-19. If having any of these symptoms, seek emergency medical care immediately: Trouble breathing Persistent pain or pressure in the chest New confusion Inability to wake or stay awake Bluish lips or face *This list is not all possible symptoms. Please call your medical provider for any other symptoms that are severe or concerning to you. documented in this encounterCommunity [facility] Hospital08-21-2022 History of Present illness Narrative* Osvaldo Mancilla PA-C - 04/02/2022 11:29 AM EDT Telemedicine Follow-up for COVID-19 Infection MyChart video visit was used for evaluation of this patient. Location of patient: [facility] Desi Rodriguez is a 61 year old female who was diagnosed with COVID-19 on 04/01/22 with symptoms starting on 04/01/22 Since diagnosis, symptoms are stable. Persistent symptoms include: Fever (?100.4F): No or Chills: Yes Cough: No Shortness of breath: No or Difficulty breathing: No Fatigue: No Muscle aches: No Headache: No Loss of smell or taste: No Sore throat: No Nasal congestion: No or Rhinorrhea: No Nausea: No or Vomiting: No Diarrhea: No OTC meds/remedies that patient has tried: acetaminophen. She reports that she has never smoked. She has never used smokeless tobacco. OBJECTIVE VIDEO EXAM (if available) GENERAL: well appearing, alert, in no acute distress HEENT: no conjunctival injection, pupils equal, moist mucous membranes, oropharynx clear without erythema, sinuses non-tender to self-palpation, and no cervical adenopathy by self-palpation PULMONARY: breathing comfortably on room air , no coughing noted, and no wheezing noted ASSESSMENT/PLAN (U07.1) COVID-19 virus infection (primary encounter diagnosis) Discussed three main options with patient with known COVID-19 Supportive and symptomatic care with increased fluids, rest, and OTC measures to control symptoms. Oral Antiviral therapies for COVID-19 plus Supportive and symptomatic care with increased fluids, rest, and OTC measures to control symptoms. Monoclonal Antibodies plus Supportive and symptomatic care with increased fluids, rest, and OTC measures to control symptoms. Pt elects option 2 Pt declines other options at this time and is aware of windows of use for other options. Osvaldo Mancilla PA-C - Symptoms stable or improving, continue self monitoring - Instructed to continue home isolation - Discussed symptom monitoring and supportive care - Red flag symptoms requiring follow up discussed This patient encounter involved the screening or treatment of novel coronavirus infection (COVID-19). documented in this encounterCommunity [facility]08-21-2022 History of Present illness Narrative* Adelina Hamilton APRN.CNP - 04/02/2022 9:15 AM EDT Images from the original note were not included. Pt cancelled appointment prior to attempted connection. Adelina Hamilton APRN.CNP documented in this encounterCommunity [facility] Hospital07-19-2021 History of Present illness Narrative* Bernie Camara RT(R) - 02/28/2021 3:40 PM EDT Radiology Service Progress Note PATIENT NAME: Desi Rodriguez DATE OF SERVICE: February 28, 2021 TIME: 3:54 PM PATIENT IDENTITY VERIFICATION COMPLETED USING TWO (2) IDENTIFIERS: Name and Date of confirmedby patient verbally. FALL SCREENING: Has the patient had 2 falls in the last year or 1 fall with injury or currently using an Ambulatory Assistive Device (Walker, Cane, Wheelchair, Crutches, etc.)? No PATIENT GENDER DATA: Female. status: : No status: NO. PATIENT RELEVANT IMPLANT DATA REVIEWED: Yes RADIOLOGY DEPARTMENT: General X-ray: Exam(s) Completed: Lower Extremity X- Ray(s): Foot, Right and Wt. Bearing PERIPHERAL IV DATA: Not applicable SIGNED BY: RT Kyle(R) February 28, 2021 3:54 PM documented in this encounterCommunity [facility] Hospital06-08-2021 History of Present illness Narrative* Bernie Camara RT(R) - 01/18/2021 10:30 AM EDT Radiology Service Progress Note PATIENT NAME: Desi Rodriguez DATE OF SERVICE: January 18, 2021 TIME: 10:31 AM PATIENT IDENTITY VERIFICATION COMPLETED USING TWO (2) IDENTIFIERS: Name and Date of confirmedby patient verbally. FALL SCREENING: Has the patient had 2 falls in the last year or 1 fall with injury or currently using an Ambulatory Assistive Device (Walker, Cane, Wheelchair, Crutches, etc.)? No PATIENT GENDER DATA: Female. status: : No status: NO. PATIENT RELEVANT IMPLANT DATA REVIEWED: Yes RADIOLOGY DEPARTMENT: General X-ray: Exam(s) Completed: Lower Extremity X- Ray(s): Foot, Right and Wt. Bearing PERIPHERAL IV DATA: Not applicable SIGNED BY: RT Kyle(Bj) January 18, 2021 10:31 AM documented in this encounterCommunity Memorial HospitalEvaluation + Plan note Future Appointments Appointment Date:07/05/2022 09:30:00 AM Scheduled Provider:ADAM SINGH DO Location:[facility] Appointment Type:PC Wellness Annual Future Scheduled Tests Laboratory* Potassium Level 03/01/22 Radiology* MA Mammo Screening Bilateral w/ Romoe 03/01/[address] [facility] Evaluation + Plan note Future Appointments Appointment Date:07/05/2022 09:30:00 AM Scheduled Provider:ADAM SINGH DO Location:[facility] Appointment Type:PC Wellness Annual Future Scheduled Tests Radiology* MA Mammo Screening Bilateral w/ Romeo 03/01/[address] [facility] Evaluation + Plan note Future Appointments Appointment Date:01/16/2023 09:30:00 AM Scheduled Provider:ADAM SINGH DO Location:[facility] Appointment Type:PC OV Diagnostic Tests Pending * Antinuclear Antibody Screen, Serum 09/06/22 * Rheumatoid Factor 09/06/[address] [facility] Evaluation + Plan note Future Appointments Appointment Date:02/06/2023 09:45:00 AM Scheduled Provider: Location:[facility] Appointment Type:PC Nurse BP Check Appointment Date:03/20/2023 11:00:00 AM Scheduled Provider:ADAM SINGH DO Location:[facility] Appointment Type:PC OV [facility] Evaluation + Plan note Future Appointments Appointment Date:02/05/2024 09:30:00 AM Scheduled Provider:ADAM SINGH DO Location:[facility] Appointment Type:PC OV [facility] Evaluation + Plan note Future Appointments Appointment Date:08/12/2024 09:30:00 AM Scheduled Provider:ADAM SINGH DO Location:[facility] Appointment Type:PC Wellness Annual [facility] Evaluation + Plan note Future Appointments Appointment Date:02/11/2025 09:00:00 AM Scheduled Provider:ADAM SINGH DO Location:[facility] Appointment Type:PC OV Future Scheduled Tests Radiology* MA Mammo Screening Bilateral w/ Romeo 03/18/24 * BD Bone Density DEXA Axial Skeleton Adult (21 yrs or older) 09/04/[address] [facility] Evaluation + Plan note Future Appointments Appointment Date:02/11/2025 09:00:00 AM Scheduled Provider:ADAM SINGH DO Location:[facility] Appointment Type:PC OV Future Scheduled Tests Radiology* MA Mammo Screening Bilateral w/ Romeo 03/18/[address] [facility] Evaluation + Plan note Future Appointments Appointment Date:08/21/2025 10:30:00 AM Scheduled Provider:ADAM SINGH DO [facility] Appointment Type:PC Wellness Annual Future Scheduled Tests Radiology* MA Mammo Screening Bilateral w/ Romeo 03/18/[address] [facility] evaluation + Plan note Future Appointments Appointment Date:03/26/2025 01:30:00 PM Scheduled Provider:ADAM SINGH DO [facility] Appointment Type:PC OV Appointment Date:08/21/2025 10:30:00 AM Scheduled Provider:ADAM SINGH DO [facility] Appointment Type:PC Wellness Annual Future Scheduled Tests Radiology* MA Mammo Screening Bilateral w/ Romeo 03/18/[address] [facility] evaluation noteNo assessment information available [facility] Work Phone: evaluation note* Diagnosis Treatment not available- Primary Procedure not carried out for other reasons documented in this encounter [facility] note* Diagnosis COVID-19 virus infection- Primary [facility]* Diagnosis Treatment not available- Primary Procedure not carried out for other reasons Patient left without being seen Surgical or other procedure not carried out because of patient's decision [facility] Viral URI with cough- Primary Acute upper respiratory infections of unspecified site Sore throat Acute pharyngitis [facility] Narrative No data available for this section [facility] Hospital Discharge instructions No data available for this section [facility] Progress note No data available for this section [facility] Chief Complaint and Reason for Visit Chief Complaint SCREENING Summary Purpose Family History No Family History Records Found No data available for this section No data available for this section No Family History Records FoundNo Family History Records Found No data available for this section No data available for this section No data available for this section No data available for this section No data available for this section No data available for this section No Family History Records Found Advance Directives No Advanced Directives Records FoundNo Advanced Directives Records FoundNo Advanced Directives Records FoundNo Advanced Directives Records Found Additional Source Comments Care Team (unrecognized sect ion and content) Care Team Personnel Name: SHAHLA LEARY MD Position: P4 Physician - Primary Care Med Service: Active Provider Member Role: Primary Care Physician Address: Address: [address] [place] [address] Care Team Related Persons Name: OSCAR RODRIGUEZ Care Team Personnel Name: ADAM SINGH DO Position: P4 Physician - Primary Care Member Role: Primary Care Physician Address: Address: [address] [place] [address] Care Team Related Persons Name: OSCAR RODRIGUEZ Goals (unrecognized section and content) Goals may be documented in a n alternate section Source Comments (unrecognize d section and content) In the event this informatio n is protected by the Federal Confidentiality of Alcohol and Drug Abuse Patient Records regulations: The Federal rules restrict any use of the information to criminally investigate or prosecute any alcohol or drug abuse patient.[facility] HospitalIn the event this information is protected by the Federal Confidentiality of Alcohol and Drug Abuse Patient Records regulations: The Federal rules restrict any use of the information to criminally investigate or prosecute any alcohol or drug abuse patient.[facility] HospitalIn the event this information is protected by the Federal Confidentiality of Alcohol and Drug Abuse Patient Records regulations: The Federal rules restrict any use of the information to criminally investigate or prosecute any alcohol or drug abuse patient.[facility] HospitalIn the event this information is protected by the Federal Confidentiality of Alcohol and Drug Abuse Patient Records regulations: The Federal rules restrict any use of the information to criminally investigate or prosecute any alcohol or drug abuse patient.[facility] HospitalIn the event this information is protected by the Federal Confidentiality of Alcohol and Drug Abuse Patient Records regulations: The Federal rules restrict any use of the information to criminally investigate or prosecute any alcohol or drug abuse patient.[facility] HospitalIn the event this information is protected by the Federal Confidentiality of Alcohol and Drug Abuse Patient Records regulations: The Federal rules restrict any use of the information to criminally investigate or prosecute any alcohol or drug abuse patient.[facility] HospitalIn the event this information is protected by the Federal Confidentiality of Alcohol and Drug Abuse Patient Records regulations: The Federal rules restrict any use of the information to criminally investigate or prosecute any alcohol or drug abuse patient.[facility] HospitalIn the event this information is protected by the Federal Confidentiality of Alcohol and Drug Abuse Patient Records regulations: The Federal rules restrict any use of the information to criminally investigate or prosecute any alcohol or drug abuse patient.[facility] HospitalIn the event this information is protected by the Federal Confidentiality of Alcohol and Drug Abuse Patient Records regulations: The Federal rules restrict any use of the information to criminally investigate or prosecute any alcohol or drug abuse patient.[facility] Reason for Visit (unrecogniz ed section and content) Reason Comments Appointment Cancelled Patient cancelled appointment - see progress note; Reason Comments Covid19 Concern Reason Comments Covid19 Concern Pt LWBS Reason Comments Results Reason Comments Sore Throat x 2 days Care Teams (unrecognized sec tion and content) Reproductive Surgeon Relationship Specialty Start Date End Date LazaraShahla PCP - General Family Practice 04/26/16 Reproductive Surgeon Relationship Specialty Start Date End Date FidebahmanShahla PCP - General Family Practice 04/26/16 Reproductive Surgeon Relationship Specialty Start Date End Date FidebahmanShahla PCP - General Family Practice 04/26/16 Reproductive Surgeon Relationship Specialty Start Date End Date bahmanShahla PCP - General Family Medicine 04/26/16 Team Status: Active Member Role Status Dates Dr. Shahla Leary MD Family Provider Active Dr. Adam Singh DO Primary Care Provider Active Team Status: Inactive Member Role Status Dates Dr. Adam Singh DO Primary Care Provide r, Attending Provider, Referring Provider Active Reproductive Surgeon Relationship Specialty Start Date End Date FideShahla hollis PCP - General Family Medicine 04/26/16 Reproductive Surgeon Relationship Specialty Start Date End Date LazaraShahla PCP - General Family Medicine 04/26/16 Reproductive Surgeon Relationship Specialty Start Date End Date Shahla Leary PCP - General Family Medicine 04/26/16 INFORMATION SOURCE (unrecogn ized section and content) DATE CREATED AUTHOR 04/28/2023 [facility] DATE CREATED AUTHOR AUTHOR'S ORGANIZ ATION 02/14/2024 [facility] DATE CREATED AUTHOR AUTHOR'S ORGANIZ ATION 04/13/2024 [facility] DATE CREATED AUTHOR AUTHOR'S ORGANIZ ATION 03/17/2025 [facility] FOR RECORDS PERTAINING TO PATIENTS WHO ARE OR HAVE BEEN ENROLLED IN A CHEMICAL DEPENDENCY/SUBSTANCEABUSE PROGRAM, SOME INFORMATION MAY BE OMITTED. This clinical summary was aggregated from multiple sources. Caution should be exercised in using it in the provision of clinical care. This summary normalizes information from multiple sources, and as a consequence, information in this document may materially change the coding, format and clinical context of patient data. In addition, data may be omitted in some cases. CLINICAL DECISIONS SHOULD BE BASED ON THE PRIMARY CLINICAL RECORDS. [facility]. provides no warranty or guarantee of the accuracy or completeness of information in this document.
== END | disposition home or self-care (01) ==
PROVIDERS: PCP Student in an Organized Health Care Education/Training Program; Referring Provider Otolaryngology Otolaryngology/Facial Plastic Surgery; Visit Provider Otolaryngology Otolaryngology/Facial Plastic Surgery
DX: R13.10 Dysphagia, unspecified (principal)
CPT/HCPCS: 74221

== ENCOUNTER → 2025-04-16 | Outpatient (CLI) | payer OTHER, SELFPAY ==
--- NOTE | 2025-04-16 16:39 | BI_ITS ---
EXAM: SCRN MAMM (CAD)W/JULITA BILAT DATE: 04/16/2025 CLINICAL HISTORY: F, Age 64 y/o , SCREENING No family history. TECHNIQUE: Procedure Code: [id number] Modality: MG Procedure: SCRN MAMM (CAD)W/JULITA BILAT COMPARISON: Prior exam(s) dated April 08, 2024.. FINDINGS: TISSUE DENSITY: The breasts are heterogeneously dense, which may obscure small masses. Bilateral Breast Mammographic Findings: No significant masses, calcifications or other abnormalities are identified. Stable small benign-appearing bilateral axillary lymph nodes. No suspicious masses, areas of developing architectural distortion, or suspicious calcifications. There has been no significant interval change. BI/SCRN MAMM (CAD)W/JULITA BILAT IMPRESSION: Stable bilateral screening mammogram. OVERALL FINAL ASSESSMENT BI-RADS 2: BENIGN RECOMMENDATION: Routine annual follow-up in 1 Year A letter with findings and recommendations will be mailed to the patient. Reading Location: [place] [id number]
--- OUTSIDE RECORDS SUMMARY | 2025-04-17 07:32 | XMS RPT_ITS | CCD ---
Author Organization [facility] Care Team Providers Care Segmental Paver Installer Name Role Phone GIBRAN ARAYA, SHAHLA Aguilar Primary Care Physician [phone] Shahla Leary Primary Care Provider [phone] LAURA PHILLIPS, DR PRESLEY Primary Care Physician [phone] Shahla Leary Primary Care Provider [phone] SHAHLA LEARY Primary Care Unavailab le NAUMOFF, SHAHLA MCNULTY Primary Care Unavailab le ROMAR DO, DR PRESLEY Attending Unavailable ROMAR DO, DR PRESLEY Primary Care Unavailable ROMAR DO, DR PRESLEY Primary Care Unavailable ROMAR DO, DR PRESLEY Attending Unavailable ROMAR DO, DR PRESLEY Primary Care Unavailable ROMAR DO, DR PRESLEY Attending Unavailable ROMAR DO, DR PRESLEY Primary Care Unavailable ROMAR DO, DR PRESLEY Attending Unavailable EMILY ARAYA, LATOYA Consulting Unavailable Gibran, Shahla Mcnulty Primary Care Provider [phone] ROMAR DO, [...] ROMAR DO, DR PRESLEY Primary Care Unavailable Romar DO, Dr. Presley Primary Care Provider [phone] Jadon ARAYA, Dr. Steven Guerin Attending Provider Jadon ARAYA, Dr. Steven Guerin Referring Provider Steven Diop Attending Unavailable Steven Diop Referring Unavailable Fernandez Singh Primary Care Unavailable Fernandez Singh Primary Care Unavailable Fernandez Singh Attending Unavailable Fernandez Singh Referring Unavailable Medications Current Medications Medication Drug Class(es) Dates Sig (Normalized) Sig (Original) amLODIPine 5 mg oral tablet (10 sources) Dihydropyridine Calcium Channel Rasta Start: 02-13-2024 End: 09-12-2025 amLODIPine 5 mg oral tablet Dose : 5 mg = 1 tab(s), Oral, qDay, # 100 tab(s), 1 Refill(s), Pharmacy: [facility], 160, cm, 02/24/25 14:18:00 EDT, Height, kg, 02/24/25 14:18:00 EDT, Dosing Weight Start Date: 02/24/25 Stop Date: 09/12/25 Status: Ordered Quantity: 100.0 Unit: tab(s) Repeat number: 2 Start: 06-06-2023 End: 12-03-2023 amLODIPine 5 mg oral tablet Dose : 5 mg = 1 tab(s), Oral, qDay, # 90 tab(s), 1 Refill(s), Pharmacy: [facility] #[id number], 159.2, cm, 06/06/23 10:05:00 EDT, Height, kg, [...] breakfast, # 100 tab(s), 3 Refill(s), Pharmacy: [facility], 160, cm, 02/24/25 14:18:00 EDT, Height, kg, 02/24/25 14:18:00 EDT, Dosing Weight Start Date: 02/27/25 Status: Ordered Quantity: 100.0 Unit: tab(s) Repeat number: 4 Start: 01-29-2024 End: 02-28-2024 levothyroxine 50 mcg (0.05 m g) oral tablet Dose : 50 mcg = 1 tab(s), Oral, qDayAC, as a single daily dose before breakfast, # 100 tab(s), 3 Refill(s), Pharmacy: [facility], 160, cm, 02/13/24 9:01:00 EDT, Height, kg, 02/13/24 9:01:00 EDT, Dosing Weight Start Date: 02/18/24 Status: Ordered Quantity: 100.0 Unit: tab(s) Repeat number: 4 Start: 01-02-2023 End: 12-03-2023 levothyroxine 50 mcg (0.05 m g) oral tablet Dose : 50 mcg = 1 tab(s), Oral, Daily, # 90 tab(s), 1 Refill(s), Pharmacy: [facility] #[id number], 159.2, cm, 06/06/23 10:05:00 EDT, Height, kg, 06/06/23 10:05:00 EDT, Dosing Weight Start Date: 06/06/23 Stop Date: 12/03/23 Status: Ordered Start: 08-02-2021 End: 01-01-2023 levothyroxine 50 mcg (0.05 m g) oral tablet Dose : 50 mcg = 1 tab(s), Oral, Daily, # 90 tab(s), 1 Refill(s), Pharmacy: [facility], 157, cm, 07/05/22 9:35:00 EST, [...] 1 Start: 03-14-2019 take 1 tablet by [facility] once daily Multivitamin Dose = 1 tab(s), Oral, Daily, 0 Refill(s) Start Date: 03/14/19 Status: Ordered predniSONE 10 mg oral tablet (4 sources) Start: 03-12-2025 End: 03-20-2025 prednisone 10mg tab (TAPER) Taper 40-30-20-10 x 2 days each dose, Oral, qDayM, Take with food/meal. No NSAIDs while on this med., # 20 tab(s), 0 Refill(s), Pharmacy: [facility]/pharmacy #[id number], 160, cm, 03/12/25 14:08:00 EDT, Height, kg, 03/12/25 14:08:00 EDT, Dosing Weight Start Date: 03/12/25 Stop Date: 03/20/25 Status: Ordered Quantity: 20.0 Unit: tab(s) Repeat number: 1 Start: 08-16-2024 End: 08-21-2024 predniSONE 50 mg oral tablet Dose : 50 mg = 1 tab(s), Oral, qDayM, X 5 day(s), # 5 tab(s), 0 Refill(s), 08/21/24 10:22:00 AM EST, [facility]: [facility] #[id number], 160, cm, 08/16/24 10:02:00 EST, Height, kg, 08/16/24 10:02:00 EST, Dosing Weight Start Date: 08/16/24 Stop Date: 08/21/24 Status: Ordered Quantity: 5.0 Unit: tab(s) Repeat number: 1 Start: 09-06-2022 End: 09-14-2022 prednisone 10mg tab (TAPER) Taper 40-30-20-10 x 2 days each dose, Oral, qDayM, Take with food/meal. No NSAIDs while on this med., # 20 tab(s), 0 Refill(s), Pharmacy: [facility] #[id number], 157, cm, 09/06/22 13:47:00 EST, Height Start [...] qDay, # 100 tab(s), 1 Refill(s), Pharmacy: [facility], 160, cm, 02/24/25 14:18:00 EDT, Height, kg, 02/24/25 14:18:00 EDT, Dosing Weight Start Date: 02/24/25 Stop Date: 09/12/25 Status: Ordered Quantity: 100.0 Unit: tab(s) Repeat number: 2 Start: 06-06-2023 Crestor 5 mg o ral tablet Dose : 5 mg = 1 tab(s), Oral, qDay, # 90 tab(s), 1 Refill(s), Pharmacy: [facility] #[id number], 159.2, cm, 06/06/23 10:05:00 EDT, Height, kg, 06/06/23 10:05:00 EDT, Dosing Weight Start Date: 06/06/23 Status: Ordered Start: 01-02-2023 Crestor 5 mg o ral tablet Dose : 5 mg = 1 tab(s), Oral, qDay, # 90 tab(s), 1 Refill(s), Pharmacy: [facility], 157, cm, 09/06/22 13:47:00 EST, Height, kg, 09/06/22 13:47:00 EST, Dosing Weight Start Date: 01/02/23 Status: Ordered Start: 07-05-2022 Crestor 5 mg o ral tablet Dose : 5 mg = 1 tab(s), Oral, qDay, # 90 tab(s), 1 Refill(s), Pharmacy: [facility], 157, cm, 07/05/22 9:35:00 EST, [...] qDay, # 90 tab(s), 3 Refill(s), Pharmacy: [facility], 157, cm, 11/12/20 15:14:00 EDT, [...] (11 sources) Chronic kidney disease stage 2 03-02-2022 Chronic Disorders of lipid metabolism (12 sources) [...] epicondylitis of left humerus 03-12-2025 Episodic Other gastrointestinal disorders (1 source) Dysphagia, unspecified; Translations: [Dysphagia, unspecified] Onset: 03-26-2025 Episodic Other nervous system disorders (20 sources) [...] Test Name Value Interpretation Reference Range Facility Esophagus Dual Contraston Esophagus Dual Contrast [facility] [address] [place] [address] Esophagus Dual Contrast MR#: [id number] Acct: [id number] Name: DESI RODRIGUEZ Rep #: [id number] : [id number] F 64 From: Norbert Murillo PCP: Dr. Fernandez Singh DO Status: REG CLI Study: Esophagus Dual Contrast Date of Exam: 03/20/25 Exam# [id number] Ordering Dr: Steven Diop MD EXAM: Single and double contrast esophagram. CLINICAL HISTORY: Dysphagia. Clinical concern for gastroesophageal reflux. COMPARISON: None. TECHNIQUE: Single and double contrast esophagram. Fluoroscopy time: 160 seconds. Dose: 40.46 mGy. FINDINGS: Limited visualization of the swallowing mechanism shows no abnormality. The esophagus demonstrate no area of persistent narrowing. No mucosal changes are appreciated. During the limited time of imaging, gastroesophageal reflux was not elicited. Easy passage of the 13 mm barium tablet into the stomach was seen. Limited imaging of the stomach and duodenum demonstrate no abnormality. RAD/Esophagus Dual Contrast IMPRESSION: No significant abnormality is seen. Reading Location: [place] [address] CC: Dr. Steven Diop MD; Dr. Fernandez Singh DO Fats And Oils Loader: Signed Normal [facility] US SOFT TISSUE MASS OF LT AR [...] Sign Date: 03/14/2025 3:28:06 PM Ordering Provider: FERNANDEZ SINGH [facility] .GFRon 02-26-2025 Estimated Glomerular Filtration Rate 93 ml/min/1.73sqm [facility] Comment on above: Result Comment: Stages [...] G FR, TSHR, LIPID, CMP, VIDH #### [facility] [address] [place], [place] [address] CMPon 02-26-2025 Albumin Level 3.7 G/dL Normal 3.4-4.[address] [facility] Comment on above: Performed By: #### G FR, TSHR, LIPID, CMP, VIDH #### [facility] [address] [place], [place] [address] Albumin/Globulin [Mass ratio] 1.2 {ratio} Normal 1.1-2.[address] [facility] Comment on above: Performed By: #### G FR, TSHR, LIPID, CMP, VIDH #### [address] [address] ALP [Catalytic activity/Vol] 81 U/L Normal 40-[address] [facility] Comment on above: Performed By: #### G FR, TSHR, LIPID, CMP, VIDH #### [address] [address] ALT [Catalytic activity/Vol] 32 U/L Normal 14-[address] [facility] Comment on above: Performed By: #### G FR, TSHR, LIPID, CMP, VIDH #### [address] [address] AST [Catalytic activity/Vol] 23 U/L Normal 10-[address] [facility] Comment on above: Performed By: #### G FR, TSHR, LIPID, CMP, VIDH #### [address] [address] Bili Total 0.4 mg/dL Normal 0.2-1.[address] [facility] Comment on above: Result Comment: Use of this assay is not recommended for patients undergoing treatment with eltrombopag due to the potential for falsely elevated results. Performed By: #### G FR, TSHR, LIPID, CMP, VIDH #### [address] [address] BUN/Creatinine Ratio 22 ratio Normal 7-27 [facility] Comment on above: Performed By: #### G FR, TSHR, LIPID, CMP, VIDH #### [address] [address] Calcium [Mass/Vol] 8.9 mg/dL Normal 8.4-10.2 [facility] Comment on above: Performed By: #### G FR, TSHR, LIPID, CMP, VIDH #### [address] [address] Chloride [Moles/Vol] 105 mmol/L Normal 98-107 [facility] Comment on above: Performed By: #### G FR, TSHR, LIPID, CMP, VIDH #### [address] [address] CO2 [Moles/Vol] 28 mmol/L Normal 23-[address] [facility] Comment on above: Performed By: #### G FR, TSHR, LIPID, CMP, VIDH #### [address] [address] Creatinine [Mass/Vol] 0.72 mg/dL Normal 0.51-0.[address] [facility] Comment on above: Performed By: #### G FR, TSHR, LIPID, CMP, VIDH #### [address] [address] Electrolyte Balance 7.0 mEq/L Normal 4.0-15.0 [facility] Comment on above: Performed By: #### G FR, TSHR, LIPID, CMP, VIDH #### [address] [address] Globulin 3.1 G/dL Normal 2.7-4.[address] [facility] Comment on above: Performed By: #### G FR, TSHR, LIPID, CMP, VIDH #### [address] [address] Glucose [Mass/Vol] 85 mg/dL Normal 80-115 [facility] Comment on above: Performed By: #### G FR, TSHR, LIPID, CMP, VIDH #### [address] [address] Potassium [Moles/Vol] 4.3 mmol/L Normal 3.5-5.[address] [facility] Comment on above: Performed By: #### G FR, TSHR, LIPID, CMP, VIDH #### [address] [address] Sodium [Moles/Vol] 140 mmol/L Normal 136-145 [facility] Comment on above: Performed By: #### G FR, TSHR, LIPID, CMP, VIDH #### [facility] [address] [place], [place] [address] Total Protein 6.8 G/dL Normal 6.4-8.[address] [facility] Comment on above: Performed By: #### G FR, TSHR, LIPID, CMP, VIDH #### [facility] [address] [place], [place] [address] Urea nitrogen [Mass/Vol] 16 mg/dL Normal 7-[address] [facility] Comment on above: Performed By: #### G FR, TSHR, LIPID, CMP, VIDH #### [place] [id number] [place], [place] [address] LABORATORYOrdered By: SYSTEM SYSTEM on 02-26-2025 25-hydroxyvitamin [...] 02-26-2025 Cholesterol [Mass/Vol] 148 mg/dL Normal 0-[address] [facility] Comment on above: Result Comment: Chol esterol Reference Interval: Less than 200 Desirable 200-239 Borderline high risk 240 and above High risk Performed By: #### G FR, TSHR, LIPID, CMP, VIDH ####[address] [place], [place] [address] Cholesterol in HDL [Mass/Vol] 55 mg/dL Normal 40-[address] [facility] Comment on above: Performed By: #### G FR, TSHR, LIPID, CMP, VIDH ####[place] [address] [place], [place] [address] Cholesterol in LDL [Mass/Vol] 66 mg/dL Normal 0-[address] [facility] Comment on above: Performed By: #### G FR, TSHR, LIPID, CMP, VIDH ####[address] [address] Triglyceride [Mass/Vol] 136 mg/dL Normal 0-[address] [facility] Comment on above: Result Comment: Trig lyceride Reference Interval: Less than 150 Normal 150-199 Borderline high risk 200-499 High risk 500 or higher Very high risk Performed By: #### G FR, TSHR, LIPID, CMP, VIDH ####[address] [address] TSHRon 02-26-2025 TSH Qn 2.29 m[IU]/L Normal 0.36-3.[address] [facility] Comment on above: Performed By: #### G FR, TSHR, LIPID, CMP, VIDH #### [place] [id number] [place], [place] [address] VIDHon 02-26-2025 Vit. D 25-Hydroxy 32.4 ng/mL Normal [facility] Comment on above: Result Comment: Inte rpretive Values Based on Total 25(OH) Vitamin D: Deficient <20 ng/mL Insufficient 20 - <30 ng/mL Sufficient 30-100 ng/mL Performed By: #### G FR, TSHR, LIPID, CMP, VIDH ####[id number] [place], [place] [address] BD BONE DENSITY DEXA AXIAL S [place] 10-15-2024 BD BONE DENSITY DEXA AXIAL SKELETON [...] Sign Date: 10/15/2024 1:18:55 PM Ordering Provider: FERNANDEZ SINGH [facility] XR KNEE THREE VIEWS RIGHTon 08-18-2024 XR [...] 08/18/2024 11:30:36 AM Ordering Provider: CHENTE BLOUNT [facility] .GFRon 08-14-2024 GFR 106 ml/min/1.73sqm [facility] Comment on above: Result Comment: GFR [...] 15 mL/min/1.73 square meters Performed By: #### G FR, BMP #### [facility] [address] [place], [place] [address] #### HCV1 #### [address] [address] GFR Non- 87 ml/min/1.73sqm Normal [facility] Comment on above: Result Comment: GFR [...] mL/min/1.73 square meters Performed By: #### Efe , BMP #### [address] [address] #### HCV1 #### [place] [address] BMP 08-14-2024 BUN/Creatinine Ratio 18 ratio Normal 7-27 [facility] Comment on above: Performed By: #### Efe , BMP #### [address] [address] #### HCV1 #### [address] [address] Calcium [Mass/Vol] 9.7 mg/dL Normal 8.4-10.2 [facility] Comment on above: Performed By: #### Efe FARRELL, BMP #### [address] [address] #### HCV1 #### [address] [address] Chloride [Moles/Vol] 106 mmol/L Normal 98-107 [facility] Comment on above: Performed By: #### Efe FR, BMP #### [address] [address] #### HCV1 #### [address] [address] CO2 [Moles/Vol] 30 mmol/L Normal 23-[address] [facility] Comment on above: Performed By: #### Efe FR, BMP #### [place] [address] #### HCV1 #### [address] [address] Creatinine [Mass/Vol] 0.68 mg/dL Normal 0.55-1.[address] [facility] Comment on above: Result Comment: Test ing performed on Siemens Dimension EXL analyzer using a modified kinetic [place] technique. Performed By: #### Efe FARRELL, BMP #### [place] [address] #### HCV1 #### [address] [address] Electrolyte Balance 7.0 mEq/L Normal 4.0-15.0 [facility] Comment on above: Performed By: #### Efe FARRELL, BMP #### [place] [address] #### HCV1 #### [address] [address] Glucose [Mass/Vol] 88 mg/dL Normal 80-115 [facility] Comment on above: Performed By: #### Efe FARRELL, BMP #### [place] [address] #### HCV1 #### [address] [address] Potassium [Moles/Vol] 4.9 mmol/L Normal 3.5-5.[address] [facility] Comment on above: Performed By: #### Efe FR, BMP #### [address] [address] #### HCV1 #### [address] [address] Sodium [Moles/Vol] 143 mmol/L Normal 136-145 [facility] Comment on above: Performed By: #### Efe FR, BMP #### [place] [address] #### HCV1 #### [place] [address] Urea nitrogen [Mass/Vol] 12 mg/dL Normal 7-[address] [facility] Comment on above: Performed By: #### G FR, BMP #### [address] [address] #### HCV1 #### [place] [id number] HCVon 08-14-2024 Hep C Ab Non-Reactive Normal Non-Reactive [facility] Comment on above: Performed By: #### G FR, BMP #### [address] [address] #### HCV1 #### [place] [address] Hep C Ab Int Normal [facility] Comment on above: Result Comment: Nonr eactive: Samples with a value < 0.80 are considered nonreactive (negative) for antibodies to HCV. A negative test result does not exclude the possibility of exposure to or infection with HCV. HCV antibodies may be undetectable in some stages of the infection and in some clinical conditions. See Interp Performed By: #### G FR, BMP #### [address] [address] #### HCV1 #### [place] [address] LABORATORYOrdered By: Gerson Morrison on 08-14-2024 Albumin DL <= 20 mg/L (U) [Mass/Vol] 536 mcg/dL Invalid Interpretation Code AO ADM SS Albumin/Creatinine DL <= 20 mg/L (U) [Mass ratio] 6 mcg/mg Normal 0 - 30 mcg/mg AO Chemistry S Creatinine (U) [Mass/Vol] 83.8 mg/dL Invalid Interpretation Code AO ADM SS LABORATORYOrdered By: [email or web address] on 08-14-2024 Calcium [Mass/Vol] 9.7 mg/dL Normal [...] clinical conditions. Invalid Interpretation Code [facility]2024 U Creatinine 83.8 mg/dL Normal [facility] Comment on above: Performed By: #### M ALBR #### [address] [address] U Microalb 536 mcg/dL Normal [facility] Comment on above: Performed By: #### M ALBR #### [address] [address] U Ratio Alb/Cre 6 mcg/mg Normal 0-[address] [facility] Comment on above: Performed By: #### M ALBR #### [address] [address] .Auto Diffon 02-13-2024 Basophil, Absolute 0.0 10 3/mcL Normal 0.0-0.2 [facility] ([place]) Comment on above: Performed By: #### L IPID, CMP, ANEU, GFR, ADIFF, CBC, TSHR #### [address] [address] Basophils/100 WBC (Bld) 0.7 % Normal 0.0-2.5 [facility] ([place]) Comment on above: Performed By: #### L IPID, CMP, ANEU, GFR, ADIFF, CBC, TSHR #### [address] [address] Eosinophil, Absolute 0.2 10 3/mcL Normal 0.0-0.4 [facility] ([place]) Comment on above: Performed By: #### L IPID, CMP, ANEU, GFR, ADIFF, CBC, TSHR #### [address] [address] Eosinophils/100 WBC (Bld) 4.2 % Normal 0.0-7.0 [facility] ([place]) Comment on above: Performed By: #### L IPID, CMP, ANEU, GFR, ADIFF, CBC, TSHR #### [address] [address] Lymphocyte, Absolute 1.7 10 3/mcL Normal 0.8-3.9 [facility] ([place]) Comment on above: Performed By: #### L IPID, CMP, ANEU, GFR, ADIFF, CBC, TSHR #### [address] [address] Lymphocytes/100 WBC (Bld) 31.6 % Normal 10.0-50.0 [facility] ([place]) Comment on above: Performed By: #### L IPID, CMP, ANEU, GFR, ADIFF, CBC, TSHR #### [address] [address] Monocyte, Absolute 0.6 10 3/mcL Normal 0.2-1.0 [facility] ([place]) Comment on above: Performed By: #### L IPID, CMP, ANEU, GFR, ADIFF, CBC, TSHR #### [address] [address] Monocytes/100 WBC (Bld) 10.3 % Normal 1.7-13.0 [facility] ([place]) Comment on above: Performed By: #### L IPID, CMP, ANEU, GFR, ADIFF, CBC, TSHR #### [address] [address] Neutrophils/100 WBC (Bld) 53.2 % Normal 37.0-80.0 [facility] ([place]) Comment on above: Performed By: #### L IPID, CMP, ANEU, GFR, ADIFF, CBC, TSHR #### [address] [address] .GFRon 02-13-2024 GFR 78 ml/min/1.73sqm Normal [facility] ([place]) Comment on above: Result Comment: GFR Population [...] CMP, ANEU, GFR, ADIFF, CBC, TSHR #### [address] [address] GFR Non- 65 ml/min/1.73sqm Normal [facility] ([place]) Comment on above: Result Comment: GFR Population [...] CMP, ANEU, GFR, ADIFF, CBC, TSHR #### [address] [address] .NEUABSon 02-13-2024 Neutrophil, Absolute 2.9 10 3/mcL Normal 2.9-6.2 [facility] ([place]) Comment on above: Performed By: #### L IPID, CMP, ANEU, GFR, ADIFF, CBC, TSHR #### [address] [address] CBCon 02-13-2024 Erythrocyte distribution width (RBC) [Ratio] 13.3 % Normal 11.5-14.5 [facility] ([place]) Comment on above: Performed By: #### L IPID, CMP, ANEU, GFR, ADIFF, CBC, TSHR #### [address] [address] Hematocrit (Bld) [Volume fraction] 41.4 % Normal 37.0-47.0 [facility] ([place]) Comment on above: Performed By: #### L IPID, CMP, ANEU, GFR, ADIFF, CBC, TSHR #### [place] [address] Hgb 14.0 G/dL Normal 12.0-16.0 [facility] ([place]) Comment on above: Performed By: #### L IPID, CMP, ANEU, GFR, ADIFF, CBC, TSHR #### [address] [address] MCH (RBC) [Entitic mass] 30.2 pg Normal 27.0-31.2 [facility] ([place]) Comment on above: Performed By: #### L IPID, CMP, ANEU, GFR, ADIFF, CBC, TSHR #### [address] [address] MCHC 33.8 G/dL Normal 33.0-37.0 [facility] ([place]) Comment on above: Performed By: #### L IPID, CMP, ANEU, GFR, ADIFF, CBC, TSHR #### [address] [address] MCV (RBC) [Entitic vol] 89.1 fL Normal 80.0-94.0 [facility] ([place]) Comment on above: Performed By: #### L IPID, CMP, ANEU, GFR, ADIFF, CBC, TSHR #### [address] [address] Platelet 370 10 3/mcL Normal 130-400 [facility] ([place]) Comment on above: Performed By: #### L IPID, CMP, ANEU, GFR, ADIFF, CBC, TSHR #### [address] [address] Platelet mean volume (Bld) [Entitic vol] 7.6 fL Normal 7.4-10.4 [facility] ([place]) Comment on above: Performed By: #### L IPID, CMP, ANEU, GFR, ADIFF, CBC, TSHR #### [address] [address] RBC 4.64 10 6/mcL Normal 4.20-5.40 [facility] ([place]) Comment on above: Performed By: #### L IPID, CMP, ANEU, GFR, ADIFF, CBC, TSHR #### [address] [address] WBC 5.4 10 3/mcL Normal 4.6-10.8 [facility] ([place]) Comment on above: Performed By: #### L IPID, CMP, ANEU, GFR, ADIFF, CBC, TSHR #### [address] [address] CMPon 02-13-2024 Albumin Level 4.0 G/dL Normal 3.4-4.8 [facility]) Comment on above: Performed By: #### L IPID, CMP, ANEU, GFR, ADIFF, CBC, TSHR #### [address] [address] Albumin/Globulin [Mass ratio] 1.3 {ratio} Normal 1.1-2.5 [facility] ([place]) Comment on above: Performed By: #### L IPID, CMP, ANEU, GFR, ADIFF, CBC, TSHR #### [address] [address] ALP [Catalytic activity/Vol] 104 U/L Normal 40-135 [facility] ([place]) Comment on above: Performed By: #### L IPID, CMP, ANEU, GFR, ADIFF, CBC, TSHR #### [address] [address] ALT [Catalytic activity/Vol] 30 U/L Normal 14-59 [facility] ([place]) Comment on above: Performed By: #### L IPID, CMP, ANEU, GFR, ADIFF, CBC, TSHR #### [address] [address] AST [Catalytic activity/Vol] 24 U/L Normal 10-40 [facility] ([place]) Comment on above: Performed By: #### L IPID, CMP, ANEU, GFR, ADIFF, CBC, TSHR #### [address] [address] Bili Total 0.5 mg/dL Normal 0.2-1.0 [facility] ([place]) Comment on above: Result Comment: Use of this assay is not recommended for patients undergoing treatment with eltrombopag due to the potential for falsely elevated results. Performed By: #### L IPID, CMP, ANEU, GFR, ADIFF, CBC, TSHR #### [address] [address] BUN/Creatinine Ratio 19 ratio Normal 7-27 [facility] ([place]) Comment on above: Performed By: #### L IPID, CMP, ANEU, GFR, ADIFF, CBC, TSHR #### [address] [address] Calcium [Mass/Vol] 9.4 mg/dL Normal 8.4-10.2 [facility] ([place]) Comment on above: Performed By: #### L IPID, CMP, ANEU, GFR, ADIFF, CBC, TSHR #### [address] [address] Chloride [Moles/Vol] 103 mmol/L Normal 98-107 [facility] ([place]) Comment on above: Performed By: #### L IPID, CMP, ANEU, GFR, ADIFF, CBC, TSHR #### [address] [address] CO2 [Moles/Vol] 30 mmol/L Normal 23-31 [facility] ([place]) Comment on above: Performed By: #### L IPID, CMP, ANEU, GFR, ADIFF, CBC, TSHR #### [address] [address] Creatinine [Mass/Vol] 0.88 mg/dL Normal 0.55-1.02 [facility] ([place]) Comment on above: Performed By: #### L IPID, CMP, ANEU, GFR, ADIFF, CBC, TSHR #### [address] [address] Electrolyte Balance 8.0 mEq/L Normal 4.0-15.0 [facility] ([place]) Comment on above: Performed By: #### L IPID, CMP, ANEU, GFR, ADIFF, CBC, TSHR #### [address] [address] Globulin 3.1 G/dL Normal [facility] ([place]) Comment on above: Performed By: #### L IPID, CMP, ANEU, GFR, ADIFF, CBC, TSHR #### [address] [address] Glucose [Mass/Vol] 86 mg/dL Normal 80-115 [facility] ([place]) Comment on above: Performed By: #### L IPID, CMP, ANEU, GFR, ADIFF, CBC, TSHR #### [address] [address] Potassium [Moles/Vol] 4.1 mmol/L Normal 3.5-5.1 [facility] ([place]) Comment on above: Performed By: #### L IPID, CMP, ANEU, GFR, ADIFF, CBC, TSHR #### [address] [address] Sodium [Moles/Vol] 141 mmol/L Normal 136-145 [facility] ([place]) Comment on above: Performed By: #### L IPID, CMP, ANEU, GFR, ADIFF, CBC, TSHR #### [address] [address] Total Protein 7.1 G/dL Normal 6.4-8.2 [facility] ([place]) Comment on above: Performed By: #### L IPID, CMP, ANEU, GFR, ADIFF, CBC, TSHR #### [address] [address] Urea nitrogen [Mass/Vol] 17 mg/dL Normal 7-18 [facility]) Comment on above: Performed By: #### L IPID, CMP, ANEU, GFR, ADIFF, CBC, TSHR #### [address] [address] LABORATORYOrdered By: SYSTEM SYSTEM on 02-13-2024 Albumin [...] 02-13-2024 Cholesterol [Mass/Vol] 159 mg/dL Normal 0-200 [facility] ([place]) Comment on above: Result Comment: Chol esterol Reference Interval: Less than 200 Desirable 200-239 Borderline high risk 240 and above High risk Performed By: #### L IPID, CMP, ANEU, GFR, ADIFF, CBC, TSHR #### [address] [address] Cholesterol in HDL [Mass/Vol] 60 mg/dL Normal 40-60 [facility] ([place]) Comment on above: Performed By: #### L IPID, CMP, ANEU, GFR, ADIFF, CBC, TSHR #### [address] [place], [place] [address] Cholesterol in LDL [Mass/Vol] 77 mg/dL Normal 0-130 [facility] ([place]) Comment on above: Performed By: #### L IPID, CMP, ANEU, GFR, ADIFF, CBC, TSHR #### [id number] [place], [place] [address] Triglyceride [Mass/Vol] 110 mg/dL Normal 0-150 [facility] ([place]) Comment on above: Result Comment: Trig lyceride Reference Interval: Less than 150 Normal 150-199 Borderline high risk 200-499 High risk 500 or higher Very high risk Performed By: #### L IPID, CMP, ANEU, GFR, ADIFF, CBC, TSHR #### [id number] [place], [place] [address] TSHRon 02-13-2024 TSH Qn 2.77 m[IU]/L Normal 0.36-3.74 [facility] ([place]) Comment on above: Performed By: #### L IPID, CMP, ANEU, GFR, ADIFF, CBC, TSHR #### [address] [place], [place] [address] Home Health Administrator Cytology Reporton 2022 Home Health Administrator Cytology Report . Pathology Reports Accession: Collected Date/Time: Received Date/Time: Pathologist: [id number] 07/31/2023 12:46 EST 07/31/2023 18:00 EST Home Health Administrator Cytology Report SPECIMEN: Specimen Description: Liquid Prep w/ HPV Specimen: Cervical Screening or Diagnostic: Screening RELEVANT HISTORY: LMP: post menopausal SPECIMEN ADEQUACY: SATISFACTORY FOR EVALUATION Endocervical/Transfo rmational zone component present INTERPRETATION/RESUL TS: NEGATIVE FOR INTRAEPITHELIAL LESION OR MALIGNANCY COMMENT: This Pap Test was successfully processed and evaluated with the assistance of the [employer] ThinPrep Test Imaging System. Electronically Signed by Pathology report verified by [facility] Screened by: KK Electronically signed by Jane ALVAREZ (ASCP) Sign-Out Date: 08/03/2023 12:28 Performing Lab: [facility], [address] [place] [address] Pathology Dept Disclaimer The Pap test is a screening test for cervical cancer. As evidenced by published data, it is subject to both inherent false negative and false positive results. Your patient's results should be interpreted in context with pertinent clinical history including gynecological examination. Normal [facility] ([place]) CNPNon 04-27-2023 [facility] ([id number]) 1960 Date Time Provider Department 04/27/[address] [facility] During your visit today, we recorded the following information about you: Dov Poole 04/27/2023 11:21 AM Signed ----- Message from Melony Ann APRN.TWITCHELL OPERATOR sent at 04/27/2023 8:52 AM EDT ----- Please advise patient the COVID, flu, RSV test was negative. Dov Poole 04/27/2023 11:22 AM Signed Patient given results and verbalized understanding of instructions given. Dov Poole Allergies As of Date: 04/27/2023 (No Known Allergies) Date Reviewed: 04/26/2023 Reviewed by: Dov Poole - Fully Assessed Reason for Visit: [...] Of Date: 04/27/2023 (None) Encounter Status:Closed by DOV POOLE on 04/27/23 [facility] CNOVon 04-26-2023 CNOV Office Visit ([facility]) DESI RODRIGUEZ ([id number]) 1960 F Date Time Provider Department 04/26/23 6:[address] [facility] During your visit today, we recorded the following information about you: Temperature Pulse Respiration Blood pressure 98.3 degrees 78/minute 16/minute 132/80 Weight 72.1 kg Melony Ann, LUZ.TWITCHELL OPERATOR 04/26/2023 7:01 PM Signed Subjective Sore Throat [...] Discussed expected course of illness Melony Ann APRN.Melony Malone APRN.[facility] 04/26/2023 6:57 PM Signed ASSESSMENT/PLAN: 1. Viral [...] Discussed expected course of illness Melony Ann APRN.TWITCHELL OPERATOR Treatment for Viral Upper Respiratory Tract Infections [...] used to (more content not included)... Normal [facility] ROUTINE FLU A/B + RSVon 04-13 FLUAV RNA DYLLAN+probe Ql (Unsp spec) Not detected Normal Not Detected [facility] Comment on above: Order Comment: Speci men Type: SWAB OF INTERNAL NOSE Ordering Facility: [facility] Address: [address] [place] [address] Performed By: #### R TFRSV, 49723-8 #### [facility] [place] [id number] [address] [place] [address] OF [place] FLUBV RNA DYLLAN+probe Ql (Unsp spec) Not detected Normal Not Detected [facility] Comment on above: Order Comment: Speci men Type: SWAB OF INTERNAL NOSE Ordering Facility: [facility] Address: [address] [place] [address] Performed By: #### R TFRSV, 45643-8 #### [facility] [place] [id number] [address] [place] [address] [place] RSV A RNA DYLLAN+probe Ql (Unsp spec) Not detected Normal Not Detected [facility] Comment on above: Order Comment: Speci men Type: SWAB OF INTERNAL NOSE Ordering Facility: [facility] Address: [address] [place] [address] Performed By: #### R TFRSV, 01362-8 #### [facility] CLIA [id number] [address] [place] [address] [place] SARS-CoV-2 RNA Resp Ql DYLLAN+p robeon 04-26-2023 SARS-CoV-2 (COVID-19) RNA DYLLNA+probe Ql (Resp) COVID 19 RESULT: Not detected The method used is RT-PCR or an equivalent NAAT method. Reference Range (the expected result in uninfected individuals): Not detected Normal [facility] Comment on above: Performed By: #### R TFRSV, 03293-8 #### [facility] CLIA [id number] [address] [place] [address] [place] STREP A MOLECULAR (POC)on Procedural Control Valid [facility] Strep A (POCT) Negative Negative [facility] LABORATORYOrdered By: SYSTEM SYSTEM on 01-16-2023 [...] AO ADM SS CNPNon 12-09-2022 CNPN Telephone ([facility]) DESI RODRIGUEZ ([id number]) 1960 F Date Time Provider Department 12/09/[address] [facility] During your visit today, we recorded the following information about you: Dov Poole 12/09/2022 10:04 AM Signed ----- Message from Dick Frazier MD sent at 12/09/2022 8:09 AM EDT ----- Negative COVID. Dov Poole 12/09/2022 10:04 AM Signed Patient given results and verbalized understanding of instructions given. Dov Poole Allergies As of Date: 12/09/2022 (No Known Allergies) Date Reviewed: 01/18/2021 Reviewed by: Dov Poole Ma - Fully Assessed Reason for Visit: Results [95] Prescriptions as of 12/09/2022 - rosuvastatin (CRESTOR) 10 mg tablet Take 0.5 tablets by mouth daily at bedtime. - levothyroxine (SYNTHROID) 50 mcg tablet - Multivitamin capsule Take 1 capsule by mouth once daily. Problem List As Of Date: 12/09/2022 (None) Encounter Status:Closed by DOV POOLE on 12/09/22 [facility] CNOVon 12-08-2022 CNOV Office Visit ([facility]) DESI RODRIGUEZ ([id number]) 1960 F Date Time Provider Department 12/08/22 6:30 PM DICK FRAZIER During your visit today, we recorded the [...] capsule by mouth once daily. No current facility-administere d medications for this visit. ALLERGIES: ALLERGIES No [...] Known Allergies) Date Reviewed: 01/18/2021 Reviewed by: Dov Poole Ma - Fully Assessed Reason for Visit: Sore Throat [200] Cmt: x 1 day Primary Visit Diagnosis:Sore throat [J02.9] Order(s):STREP A MOLECULAR (POC) [2299050] Order #: [id number]. #:[id number] CORONAVIRUS [SQCOVID] Order #: [id number]. #:[id number] Prescriptions as of 12/08/2022 - rosuvastatin (CRESTOR) 10 mg tablet Take 0.5 tablets by mouth daily at bedtime. - levothyroxine (SYNTHROID) 50 mcg tablet - Multivitamin capsule Take 1 capsule by mouth once daily. Problem List As Of Date: 12/08/2022 (None) Encounter Status:Closed by DICK FRAZIER on 12/08/22 [facility] LABORATORYOrdered By: SYSTEM SYSTEM on 09-06-2022 [...] 6.2 mg/dL AO ADM SS LABORATORYOrdered By: Val Branch on 09-06-2022 Basophil, Absolute 0.0 103/mcL [...] 02-28-2021 IMPRESSION: Healing fourth proximal phalanx fracture. Fats And Oils Loader: PSCB Transcribe Date/Time: Feb 28 2021 4:31P Dictated by : EMILIA SAHU MD This examination was interpreted and the report reviewed and electronically signed by: EMILIA SAHU MD on Feb 28 2021 4:32PM EST DIVISION OF RADIOLOGY * * *Final [...] dorsal calcaneal enthesophyte. DIVISION OF RADIOLOGY Provider, [facility] [place] - 02/28/2021 * * *Final Report* * [...] IMPRESSION IMPRESSION: Healing fourth proximal phalanx fracture. Fats And Oils Loader: PSCB Transcribe Date/Time: Feb 28 2021 4:31P Dictated by : EMILIA SAHU MD This examination was interpreted and the report reviewed and electronically signed by: EMILIA SAHU MD on Feb 28 2021 4:32PM EST [facility] Radiology Study observation (narrative) [facility] XR Foot - right AP and Later al and obliqueOrdered By: Ccf Provider on 02-28-2021 [facility] XR Foot - right AP and Later al and obliqueon 01-18-2021 IMPRESSION: Nondisplaced oblique fracture of the proximal phalanx of the fourth digit of the right foot. Fats And Oils Loader: PSYCHIATRIC Transcribe Date/Time: Jan 18 2021 10:44A Dictated [...] spaces are maintained. DIVISION OF RADIOLOGY Provider, [facility] [place] - 01/18/2021 * * *Final Report* * [...] the fourth digit of the right foot. Fats And Oils Loader: KARENA Transcribe Date/Time: Jan 18 2021 10:44A Dictated by : HATTIE OBREGON MD This examination was interpreted and the report reviewed and electronically signed by: HATTIE OBREGON MD on Jan 18 2021 10:46AM EST [facility] Radiology Study observation (narrative) [facility] XR Foot - right AP and Later al and obliqueOrdered By: Ccf Provider on 01-18-2021 [facility] Vital Signs Date Time Vital Sign Value Performing Clinician Faci lity 04-26-2023 18:42-0400 Body temperature 98.29 [degF] Melony Praisler-Wood RN SEXUAL ASSAULT.TWITCHELL OPERATOR Work Phone: [facility] 04-26-2023 18:42-0400 Body weight 72.12 kg Melony Praisler-Wood RN SEXUAL ASSAULT.TWITCHELL OPERATOR Work Phone: [facility] 04-26-2023 18:42-0400 Diastolic blood pressure 80 mm[Hg] Melony Praisler-Wood RN SEXUAL ASSAULT.TWITCHELL OPERATOR Work Phone: [facility] 04-26-2023 18:42-0400 Heart rate 78 /min Melony Praisler-Wood RN SEXUAL ASSAULT.TWITCHELL OPERATOR Work Phone: [facility] 04-26-2023 18:42-0400 Respiratory rate 16 /min Melony Praisler-Wood RN SEXUAL ASSAULT.TWITCHELL OPERATOR Work Phone: [facility] 04-26-2023 18:42-0400 SaO2% (BldA) [Mass fraction] 98 % Melony Praisler-Wood RN SEXUAL ASSAULT.TWITCHELL OPERATOR Work Phone: [facility] 04-26-2023 18:42-0400 Systolic blood pressure 132 mm[Hg] Melony Praisler-Wood RN SEXUAL ASSAULT.TWITCHELL OPERATOR Work Phone: [facility] Encounters Encounter Date Encounter Type Care Provider Facility Start: 04-16-2025 ambulatory Fernandez Singh Facility:[facility] Start: 03-20-2025 End: 03-20-[address] Fernandez Singh DO Work Phone: -Radiology [facility] Start: 03-20-2025 End: 03-20-[address] Steven Diop MD -Radiology [facility] Work Phone: Start: 03-20-2025 End: 03-20-2025 ambulatory Stevne Diop Facility:[facility] Start: 03-13-2025 End: 03-13-[address] FERNANDEZ SINGH DO Facility:[facility] Start: 03-13-2025 End: 03-13-[address] FERNANDEZ SINGH DO [facility] Start: 02-26-2025 End: 02-26-[address] FERNANDEZ SINGH DO Facility:[facility] Start: 02-26-2025 End: 02-26-[address] FERNANDEZ SINGH DO [facility] Start: 10-15-2024 End: 10-15-[address] FERNANDEZ SINGH DO Facility:[facility] Start: 10-15-2024 End: 10-15-[address] FERNANDEZ SINGH DO [facility] Start: 08-16-2024 End: 08-16-2024 ambulatory CHENTE BLOUNT DO Facility:[facility] Start: 08-16-2024 End: 08-16-2024 Patient encounter procedure CHENTE BLOUNT DO [facility] Start: 08-14-2024 End: 08-18-[address] FERNANDEZ SINGH DO Facility:[facility] Start: 08-14-2024 End: 08-18-[address] FERNANDEZ SINGH DO [facility] Start: 08-14-2024 End: 08-14-[address] FERNANDEZ SINGH DO Facility:[facility] Start: 08-14-2024 End: 08-14-2024 Patient encounter procedure CHENTE CARTAGENAALEXANDRA DO [facility] Start: 02-13-2024 End: 02-13-[address] FERNANDEZ SINGH DO Facility:[facility] Start: 02-13-2024 End: 02-13-[address] FERNANDEZ SINGH DO [facility] Start: 07-31-2023 End: 08-04-[address] FERNANDEZ SINGH DO Facility:[facility] Start: 07-31-2023 End: 08-04-2023 Encounter for general adult medical examination without abnormal findings DR FERNANDEZ SINGH DO Facility:[facility] Start: 07-31-2023 End: 08-04-[address] FERNANDEZ SINGH DO [facility] Start: 07-06-2023 End: 07-06-[address] FERNANDEZ SINGH DO Facility:[facility] Start: 04-27-2023 Telephone encounter Melony Maxwell APRN.TWITCHELL OPERATOR Work Phone: [facility] Comment on above: Results Start: 04-26-2023 End: 04-26-2023 ambulatory SHAHLA LEARY Facility:[facility] Start: 04-26-2023 End: 04-26-2023 Patient encounter procedure Melony Ann APRN.TWITCHELL OPERATOR Work Phone: [facility] Comment on above: Viral URI with cough (Primary Dx); Sore throat Start: 03-30-2023 End: 03-30-2023 ambulatory [facility] Work Phone: Start: 03-30-2023 End: 03-30-2023 Patient encounter procedure [facility] Work Phone: Start: 03-05-2023 End: 03-05-[address] FERNANDEZ SINGH DO Facility:[facility] Start: 01-16-2023 End: 01-16-[address] FERNANDEZ SINGH DO [facility] Start: 12-09-2022 Telephone encounter Dick Bautista MD Work Phone: [facility] Comment on above: Results Start: 12-08-2022 End: 12-08-2022 ambulatory SHAHLA LEARY Facility:[facility] Start: 09-06-2022 End: 09-06-[address] FERNANDEZ SINGH DO [facility] Start: 04-02-2022 End: 04-02-2022 ambulatory Adelina Hamilton APRN.TWITCHELL OPERATOR Work Phone: Telemedicine Comment on above: Treatment not availa ble (Primary Dx) COVID-19 virus infec tion (Primary Dx) Treatment not availa ble (Primary Dx); Patient left without being seen Start: 04-02-2022 End: 04-02-2022 Telemedicine consultation with patient Adelina Alfonso PERALESTWITCHELL OPERATOR Work Phone: [facility] Start: 03-21-2022 End: 03-21-2022 Patient encounter procedure [facility] Start: 03-02-2022 End: 03-02-[address] FERNANDEZ SINGH DO [facility] Start: 03-01-2022 End: 03-01-[address] FERNANDEZ SINGH DO [facility] Start: 02-28-2021 End: 02-28-2021 Subsequent hospital visit by physician [facility] Work Phone: Radiology Start: 01-18-2021 End: 01-18-2021 Subsequent hospital visit by physician [facility] Work Phone: Radiology Comment on above: Foot pain, right [M7 9.671] Procedures Date Procedure Procedure Detail Performing Clinician Start: 03-20-2025 X-ray of esophagus w ith double contrast Dr. Fernandez Singh DO Work Phone: Start: 07-13-2023 Carpal tunnel syndro me of right wrist (disorder) CHENTE BLOUNT DO Start: 04-26-2023 STREP A MOLECULAR (POC) Melony Ann RN SEXUAL ASSAULT.TWITCHELL OPERATOR Work Phone: Start: 03-30-2023 Screening mammography Start: 03-21-2022 Screening mammography Start: 02-28-2021 Radex foot complete minimum 3 views [facility] Provider Start: 01-18-2021 Radex foot complete minimum 3 views Rina Crump RN SEXUAL ASSAULT.TWITCHELL OPERATOR Work Phone: Start: 06-05-2016 Colonoscopy Adelina murdock RN SEXUAL ASSAULT.TWITCHELL OPERATOR Work Phone: Start: 07-31-[address] FERNANDEZ SINGH DO Plan of Treatment Date Care Activity Detail Author Start: 2034 RSV Vaccine (1 - 1-dose 75+ series) RSV Vaccine (1 - 1-dose 75+ series) [facility] Start: 07-16-2032 Urine microalbumin profile DTaP,Tdap,Td Vaccine (2 - Td or Tdap) [facility] Start: 06-05-2026 Colonoscopy COLONOSCOPY [facility] Start: 06-05-2026 COLORECTAL CANCER SCREENING COLORECTAL CANCER SCREENING [facility] Start: 06-05-2026 Screening for malignant neoplasm of colon [facility] Start: 04-13-2024 Covid-19 Vaccine ( season) Covid-19 Vaccine ( season) [facility] Start: 04-13-2024 Influenza vaccination [facility] Start: 08-13-2022 DEPRESSION ASSESSMENT DEPRESSION ASSESSMENT [facility] Start: 04-13-2022 Influenza vaccination INFLUENZA (#1) [facility] Start: 2009 SHINGRIX VACCINE (1 of 2) SHINGRIX VACCINE (1 of 2) [facility] Start: 2004 COLOGUARD (FIT-DNA) COLOGUARD (FIT-DNA) [facility] Start: [address] COLONOGRAPHY [facility] Start: 2004 DIABETES SCREEN DIABETES SCREEN [facility] Start: 2004 Diabetes Screening Diabetes Screening [facility] Start: 2004 FECAL OCCULT BLOOD FECAL OCCULT BLOOD [facility] Start: 2004 Lipid 1996 panel - Serum or Plasma Lipid Screening [facility] Start: 2004 Lipid panel Lipid Screening [facility] Start: 2004 LIPID SCREEN LIPID SCREEN [facility] Start: 2004 Screening for malignant neoplasm of colon [facility] Start: 2004 SIGMOIDOSCOPY SIGMOIDOSCOPY [facility] Start: 1999 Mammography [facility] Start: 1999 Screening for malignant neoplasm of breast Mammogram Screening [facility] Start: 1989 HPV TESTING HPV TESTING [facility] Start: 1980 PAP TESTING PAP TESTING [facility] Start: 1980 Screening for malignant neoplasm of cervix Cervical Cancer Screening [facility] Start: 1978 Urine microalbumin profile [facility] Start: 1977 Anxiety Screening Anxiety Screening [facility] Start: 1977 Depression Screening Depression Screening [facility] Start: 1977 HEPATITIS C SCREENING HEPATITIS C SCREENING [facility] Start: 1977 Hepatitis C screening Hepatitis C Screening [facility] Start: 1977 HIV SCREENING HIV SCREENING [facility] Start: 1977 HIV screening HIV Screening [facility] Start: 1971 Adult depression screening assessment DEPRESSION SCREENING [facility] COVID & INFLUENZA A/ B & RSV NAAT, ROUTINE COVID & INFLUENZA A/B & RSV NAAT, ROUTINE Microbiology Routine Viral URI with cough 04/26/2023 7:02 PM EDT [facility] Work Phone: ROUTINE FLU A/B + RSV ROUTINE FL U A/B + RSV Lab Routine Viral URI with cough 04/26/2023 7:02 PM EDT [facility] Work Phone: SARS-CoV-2 (COVID-19 ) RNA [Presence] in Respiratory specimen by DYLLAN with probe detection COVID NAAT, UPPER RESPIRATORY, ROUTINE Microbiology Routine Viral URI with cough 04/26/2023 7:02 PM EDT [facility] Work Phone: Immunizations Immunization Date Immunization Notes Care Provider [facility] 05-14-2024 influenza virus vaccine, unspecified formulation CHENTE BLOUNT DO [facility] Comment on above: Result Comment: 2024: VIS DATE: 03/19/2015 03-30-2023 influenza virus vaccine, unspecified formulation DR FERNANDEZ SINGH DO [facility] 03-30-2023 SARS-CoV-2 (CV19)mRNA-[address] FERNANDEZ SINGH DO [facility] 07-16-2022 tetanus toxoid, redu joan diphtheria toxoid, and acellular pertussis vaccine, adsorbed DR FERNANDEZ SINGH DO [facility] 05-08-2022 influenza virus vaccine, unspecified formulation DR FERNANDEZ SINGH DO [facility] 11-19-2021 SARS-CoV-2 mRNA (zkoinokxepc-majd-ywwfa se) vaccine DR FERNANDEZ SINGH DO [facility] 05-13-2021 influenza virus vaccine, unspecified formulation DR FERNANDEZ SINGH DO [facility] 05-13-2021 SARS-CoV-2 mRNA (tozinameran) vaccine DR FERNANDEZ SINGH DO [facility] Comment on above: Result Comment: 2021: [id number] 10-22-2020 SARS-CoV-2 mRNA (tozinameran) vaccine DR FERNANDEZ SINGH DO [facility] 10-01-2020 SARS-CoV-2 mRNA (tozinameran) vaccine DR FERNANDEZ SINGH DO [facility] Comment on above: Result Comment: 2021: [id number] 07-22-2020 influenza virus vaccine, unspecified formulation DR FERNANDEZ SINGH DO [facility] 10-13-[address] FERNANDEZ SINGH DO [facility] Comment on above: Result Comment: Peewee Garcia 07-14-[address] FERNANDEZ SINGH DO [facility] 05-28-2019 influenza virus vaccine, unspecified formulation DR FERNANDEZ SINGH DO [facility] 08-24-2017 influenza virus vaccine, unspecified formulation DR FERNANDEZ SINGH DO [facility] 06-17-2014 influenza virus vaccine, unspecified formulation DR FERNANDEZ SINGH DO [facility] 03-18-2013 hepatitis A vaccine, adult dosage DR FERNANDEZ SINGH DO [facility] 08-13-2011 hepatitis A vaccine, adult dosage DR FERNANDEZ SINGH DO [facility] Payers Date Payer Category Payer Self-pay [id number] 2019 Private Health Insurance [id number] 2015 Unknown [id number] 2015 Unknown [id number] 1960 Unknown [id number] 2.16.8 [id number] 1960 Unknown [id number] 2.16.8 [id number] 1960 Unknown [id number] 2.16.8 [id number] 1960 Unknown [id number] 2.16.8 [id number] 1960 Unknown [id number] 2.16. [id number] 1960 Unknown [id number] 2.16. [id number] 1960 Unknown [id number] 2.16.8 [id number] 1960 Unknown [id number] 2.16.8 [id number] 1959 Unknown [id number] 2.16.8 [id number] 1960 Unknown [id number] 2.16.8 [id number] Unknown [id number] 2.16.8 [id number] Unknown [id number] 2.16.8 [id number] Social History Date Type Detail Facility Start: 10-24-2018 End: 03-13-2019 Tobacco smoking status Never smoked tobacco (finding) [facility] Comment on above: no tobacco smoke exp osure Start: 1960 Sex Assigned At Female A [facility] Start: 10-24-2018 End: 04-26-2023 Tobacco use and exposure Smokeless tobacco non-user [facility] Start: 01-18-2021 End: 04-26-2023 Alcohol intake Current drinker of alcohol (finding) [facility] Start: 04-26-2016 History SDOH Alcohol Comment social [facility] Start: 1960 Sex Assigned At Not on file [facility] Start: 07-18-2020 End: 04-26-2023 History of Social function [facility] Start: 07-18-2020 End: 04-26-2023 Tobacco use panel [facility] National Score (1-10 0), lower number is lower risk Not on file [facility] Start: 01-29-2021 End: 02-28-2021 Exposure to SARS-CoV-2 (event) Not sure [facility] Sexual Orientation [facility] Start: 02-05-2019 Sex Female (finding) [facility] Work Phone: Clinical Notes 01-18-2021 to 03-20-2025 Note Date & Type Note Facility 03-20-2025 Radiology Diagnostic study note [facility] Imaging Services [address] [place], [place] [id number] Esophagus Dual Contrast MR#: [id number] Acct: [id number] Name: DESI RODRIGUEZ Rep #: [id number] : 1960 F 64 From: Leonardo Smiley MD PCP: Dr. Fernandez Singh, Status: REG CLI Study:Esophagus Dual Contrast Date of Exam: 03/20/25 Exam# [id number] Ordering Dr: Per Diop MD EXAM: Single and double contrast esophagram. CLINICAL HISTORY: Dysphagia. Clinical concern for gastroesophageal reflux. COMPARISON: None. TECHNIQUE: Single and double contrast esophagram. Fluoroscopy time: 160 seconds. Dose: 40.46 mGy. FINDINGS: Limited visualization of the swallowing mechanism shows no abnormality. The esophagus demonstrate no area of persistent narrowing. No mucosal changes are appreciated. During the limited time of imaging, gastroesophageal reflux was not elicited. Easy passage of the 13 mm barium tablet into the stomach was seen. Limited imaging of the stomach and duodenum demonstrate no abnormality. RAD/Esophagus Dual Contrast IMPRESSION: No significant abnormality is seen. Reading Location: [place] [address] CC: Dr. Steven Diop MD; Dr. Fernandez Singh DO ~ Fats And Oils Loader: Signed [facility] 10-15-2024 Note Exam Date Time Procedure Performing Provider Status 10/15/24 11:48 AM BD Bone Density DEXA Axial Skeleton NORBERT LANTIGUA DO; Auth (Verified) [id number] ORIGINAL EXAMINATION: BONE DENSITOMETRY 10/15/2024 11:51 am [...] Sign Date: 10/15/2024 1:18:55 PM Ordering Provider: FERNANDEZ SINGH [facility]12-22-2023 Note SATISFACTORY FOR EVALUATION Endocervical/Transformational zone component present [facility] 12-22-2023 Note SATISFACTORY FOR EVALUATION Endocervical/Transformational zone component present [facility] 12-22-2023 Note SATISFACTORY FOR EVALUATION Endocervical/Transformational zone component present [facility] 12-22-2023 Note SATISFACTORY FOR EVALUATION Endocervical/Transformational zone component present [facility] 12-22-2023 Note SATISFACTORY FOR EVALUATION Endocervical/Transformational zone component present [facility] 12-22-2023 Note SATISFACTORY FOR EVALUATION Endocervical/Transformational zone component present [facility] 12-22-2023 Note SATISFACTORY FOR EVALUATION Endocervical/Transformational zone component present [facility] 09-15-2023 Miscellaneous Notes* Telephone Encounter - Dov Poole - 04/27/2023 11:22 AM EDT Patient given results and verbalized understanding of instructions given. Dov Poole * Telephone Encounter - Dov Poole - 04/27/2023 11:21 AM EDT ----- Message from Melony Ann APRN.TWITCHELL OPERATOR sent at 04/27/2023 8:52 AM EDT ----- Please advise patient the COVID, flu, RSV test was negative. [facility]23 NoteHNO ID: [id number] Author: Melony Ann APRN.TWITCHELL OPERATOR Service: ? Author Type: Nurse Practitioner Type: [...] - Discussed expected course of illness Melony nAn APRN.[facility]09-14-2023 Instructions* Patient Instructions* Melony Ann APRN.[facility] - 04/26/2023 6:55 PM EDT ASSESSMENT/PLAN: 1. [...] Discussed expected course of illness Melony Ann APRN.[facility] Treatment for Viral Upper Respiratory Tract Infections [...] fluids help open respiratory and sinus passages [place] Nasal [place] may offer relief of nasal and head congestion Rkiy's Vapor Rub may relieve congestion Tylenol and [...] worse rather than better [facility]23 History of Present illness Narrative* Melony Ann APRN.OSIEL - 04/26/2023 6:51 PM EDT Subjective Sore [...] Discussed expected course of illness Melony Ann APRN.TWITCHELL OPERATOR documented in this encounterDay[facility]04-29-2023 Miscellaneous Notes* Telephone Encounter - Dov Browneley - 12/09/2022 10:04 AM EDT Patient given results and verbalized understanding of instructions given. Dov Luma * Telephone Encounter - Dov Poole - 12/09/2022 10:04 AM EDT ----- Message from Dick Frazier MD sent at 12/09/2022 8:09 AM EDT ----- Negative COVID. documented in this encounterDay[facility]04-28-2023 NoteHNO ID: [id number] Author: Dick Frazier MD Service: ? Author [...] Discussed contagiousness. - 2019 CORONAVIRUS Dick Frazier, [facility]08-21-2022 History of Present illness Narrative* Adelina Hamilton APRN.CNP - 04/02/2022 12:00 PM EDT Patient left virtual waiting room prior to attempted connection; patient left without being seen. Adelina Hamilton APRN.CNP documented in [facility]Day[facility]08-[facility]-2022 History of Present illness Narrative* Adelina Hamilton APRN.CNP - 04/02/2022 11:54 AM EDT Patient left virtual waiting room prior to attempted connection; patient left without being seen. Adelina Hamilton APRN.CNP documented in this encounterDay[facility]08-21-2022 Instructions* Patient Instructions* Osvaldo Mancilla PA-C - 04/02/2022 11:30 AM EDT Resources for Managing Anxiety During COVID Crisis https://www.virusanTrackaPhoneety.com https://www.cdc.gov/coronavirus/2019-ncov/prepare/wxyzmnwg-plgait-trhghen.html https://coronavirus.[place].gov/wps/portal/gov/covid-19/home/resources/resources-fo p-enumos-qsdejm-ekcq-ztw-zaakb-19-pandemic www.Gaudena.Make My plate/us/blog/ymw-yexkf-toxudnnjupjt//rlj-ffyqmg-zctqkvb irus-anxiety https://www.Gaudena.Make My plate/us/blog/mrf-wojpx-sbugqyl/669866/97-ndgp-ewvsxfz av-cfei-ggmpygpsxu-now https://www.psychologytoday.com/us/blog/experimentations//0-tcmrbiwcvdu-to ravublrny-xlbsviwhyh-ofjfuclen Beginning Home Isolation Isolation is used to [...] to your local emergency facility: Notify the jig grinder set up operator that you are seeking care for [...] pedialyte or Gatorade, or flat sprite or marecl-simeon. Start slowly and increase as you are [...] or concerning to you. documented in this encounterDay[facility]08-[facility]-2022 History of Present illness Narrative* Osvaldo Mancilla PA-C - 04/02/2022 11:29 AM EDT Telemedicine Follow-up for COVID-19 Infection MyChart video visit was used for evaluation of this patient. Location of patient: [facility] Desi Rodriguez is a 61 [...] novel coronavirus infection (COVID-19). documented in this encounterDay[facility]08-21-2022 History of Present illness Narrative* Adelina Hamilton APRN.CNP - 04/02/2022 9:15 AM EDT Images from the original note were not included. Pt cancelled appointment prior to attempted connection. Adelina Hamilton APRN.CNP documented in this encounterDay[facility]07-19-2021 History of Present illness Narrative* Bernie [...] 28, 2021 3:54 PM documented in this encounterDay[facility]06-08-2021 History of Present illness Narrative* Bernie [...] DATA: Not applicable SIGNED BY: RT Kyle(R) January 18, 2021 10:31 AM documented in this encounterDayton [facility] HospitalEvaluation + Plan note Future Appointments Appointment Date:07/05/2022 09:30:00 AM Scheduled Provider:FERNANDEZ SINGH DO Location:[facility] Appointment Type: Wellness Annual Future Scheduled Tests Laboratory* Potassium Level 03/01/22 Radiology* MA Mammo Screening Bilateral w/ Romeo 03/01/22 [facility] Evaluation + Plan note Future Appointments Appointment Date:07/05/2022 09:30:00 AM Scheduled Provider:FERNANDEZ SINGH DO Location:[facility] Appointment Type: Wellness Annual Future Scheduled Tests Radiology* MA Mammo Screening Bilateral w/ Romeo 03/01/22 [facility] Mediaaluation + Plan note Future Appointments Appointment Date:01/16/2023 09:30:00 AM Scheduled Provider:FERNANDEZ SINGH DO Location:[facility] Appointment Type:PC OV Diagnostic Tests Pending * Antinuclear Antibody Screen, Serum 09/06/22 * Rheumatoid Factor 09/06/22 [facility] evaluation + Plan note Future Appointments Appointment Date:02/06/2023 09:45:00 AM Scheduled Provider: Location:[facility] Appointment Type:PC Nurse BP Check Appointment Date:03/20/2023 11:00:00 AM Scheduled Provider:FERNANDEZ SINGH DO Location:[facility] Appointment Type:PC OV [facility] Mediaaluation + Plan note Future Appointments Appointment Date:02/05/2024 09:30:00 AM Scheduled Provider:FERNANDEZ SINGH DO Location:[facility] Appointment Type:PC OV [facility] SAY Mediaaluation + Plan note Future Appointments Appointment Date:08/12/2024 09:30:00 AM Scheduled Provider:FERNANDEZ SINGH DO Location:[facility] Appointment Type:PC Wellness Annual [facility] evaluation + Plan note Future Appointments Appointment Date:02/11/2025 09:00:00 AM Scheduled Provider:FERNANDEZ SINGH DO Location:[facility] Appointment Type:PC OV Future Scheduled Tests Radiology* MA Mammo Screening Bilateral w/ Romeo 03/18/24 * BD Bone Density DEXA Axial Skeleton Adult (21 yrs or older) 09/04/24 [facility] evaluation + Plan note Future Appointments Appointment Date:02/11/2025 09:00:00 AM Scheduled Provider:FERNANDEZ SINGH DO Location:[facility] Appointment Type:PC OV Future Scheduled Tests Radiology* MA Mammo Screening Bilateral w/ Romeo 03/18/24 [facility]AY Mediaaluation + Plan note Future Appointments Appointment Date:08/21/2025 10:30:00 AM Scheduled Provider:FERNANDEZ SINGH DO [place] Appointment Type:PC Wellness Annual Future Scheduled Tests Radiology* MA Mammo Screening Bilateral w/ Romeo 03/18/24 [facility] Evaluation + Plan note Future Appointments Appointment Date:03/26/2025 01:30:00 PM Scheduled Provider:FERNANDEZ SINGH DO [facility] Appointment Type:PC OV Appointment Date:08/21/2025 10:30:00 AM Scheduled Provider:FERNANDEZ SINGH DO [facility] Appointment Type:PC Wellness Annual Future Scheduled Tests Radiology* MA Mammo Screening Bilateral w/ Romeo 03/18/24 [facility] Evaluation noteNo assessment information available [facility] Work Phone: Evaluation note* Diagnosis Treatment not available- Primary Procedure not carried out for other reasons documented in this encounter [facility] note* Diagnosis COVID-19 virus infection- Primary documented in this encounter [facility] note* Diagnosis Treatment not available- Primary Procedure not carried out for other reasons Patient left without being seen Surgical or other procedure not carried out because of patient's decision documented in this encounter [facility] note* Diagnosis Viral URI with cough- Primary Acute upper respiratory infections of unspecified site Sore throat Acute pharyngitis documented in [facility] course Narrative No data available for this section [facility] Hospital Discharge instructions No data available for this section [facility] Progress note No data available for this section [facility] Reason for referral (narrative)No reason for referral information availableOhio Valley Surgical Hospital Work Phone: Chief Complaint and Reason for Visit Chief Complaint SCREENING Chief Complaint Admit Date Dysphagia, unspecified March 20, 2025 8:03am Summary Purpose Family History No Family History Records Found No data available for this section No data available for this section No Family History Records Found No data available for this section No data available for this section No data available for this section No data available for this section No data available for this section No data available for this section No Family History Records FoundNo Family History Records Found Advance Directives No Advanced Directives Records FoundNo Advanced Directives Records FoundNo Advanced Directives Records FoundNo Advanced Directives Records Found Additional Source Comments Care Team (unrecognized sect ion and content) Care Team Personnel Name: SHAHLA LEARY MD Position: P4 Physician - Primary Care Med Service: Active Provider Member Role: Primary Care Physician Address: Address: [address] [place] [address] Care Team Related Persons Name: OSCAR RODRIGUEZ Care Team Personnel Name: FERNANDEZ SINGH DO Position: P4 Physician - Primary Care Member Role: Primary Care Physician Address: Address: [address] [place] [address] Care Team Related Persons Name: OSCAR RODRIGUEZ [...] or prosecute any alcohol or drug abuse patient.[facility] HospitalIn the event this information is protected by the Federal Confidentiality of Alcohol and Drug Abuse Patient Records regulations: The Federal rules restrict any use of the information to criminally investigate or prosecute any alcohol or drug abuse patient.[facility] HospitalIn the event this information is protected by the Federal Confidentiality of Alcohol and Drug Abuse Patient Records regulations: The Federal rules restrict any use of the information to criminally investigate or prosecute any alcohol or drug abuse patient.[facility] HospitalIn the event this information is protected by the Federal Confidentiality of Alcohol and Drug Abuse Patient Records regulations: The Federal rules restrict any use of the information to criminally investigate or prosecute any alcohol or drug abuse patient.[facility] HospitalIn the event this information is protected by the Federal Confidentiality of Alcohol and Drug Abuse Patient Records regulations: The Federal rules restrict any use of the information to criminally investigate or prosecute any alcohol or drug abuse patient.[facility] HospitalIn the event this information is protected by the Federal Confidentiality of Alcohol and Drug Abuse Patient Records regulations: The Federal rules restrict any use of the information to criminally investigate or prosecute any alcohol or drug abuse patient.[facility] HospitalIn the event this information is protected by the Federal Confidentiality of Alcohol and Drug Abuse Patient Records regulations: The Federal rules restrict any use of the information to criminally investigate or prosecute any alcohol or drug abuse patient.[facility] HospitalIn the event this information is protected by the Federal Confidentiality of Alcohol and Drug Abuse Patient Records regulations: The Federal rules restrict any use of the information to criminally investigate or prosecute any alcohol or drug abuse patient.[facility] HospitalIn the event this information is protected by the Federal Confidentiality of Alcohol and Drug Abuse Patient Records regulations: The Federal rules restrict any use of the information to criminally investigate or prosecute any alcohol or drug abuse patient.[facility] Reason for Visit (unrecogniz ed section and content) Reason Comments Appointment Cancelled Patient cancelled appointment - see progress note; Reason Comments Covid19 Concern Reason Comments Covid19 Concern Pt LWBS Reason Comments Results Reason Comments Sore Throat x 2 days Care Teams (unrecognized sec tion and content) Segmental Paver Installer Relationship Specialty Start Date End Date Naumoff, Shahla Evan PCP - General Family Practice 04/26/16 Segmental Paver Installer Relationship Specialty Start Date End Date FideumShahla barron PCP - General Family Practice 04/26/16 Segmental Paver Installer Relationship Specialty Start Date End Date NaShahla barron PCP - General Family Practice 04/26/16 Segmental Paver Installer Relationship Specialty Start Date End Date NaumShahla barron PCP - General Family Medicine 04/26/16 Team Status: Active Member Role Status Dates Dr. Shahla Leary MD Family Provider Active Dr. Fernandez Singh DO Primary Care Provider Active Team Status: Inactive Member Role Status Dates Dr. Fernandez Singh DO Primary Care Provide r, Attending Provider, Referring Provider Active Segmental Paver Installer Relationship Specialty Start Date End Date Shahla Leary PCP - General Family Medicine 04/26/16 Segmental Paver Installer Relationship Specialty Start Date End Date FideShahla barron PCP - General Family Medicine 04/26/16 Segmental Paver Installer Relationship Specialty Start Date End Date FideShahla barron PCP - General Family Medicine 04/26/16 Team Status: Active Member Role/Relationship Status Dates Dr. Fernandez Singh DO Primary Care Provider Active Team Status: Inactive Member Role/Relationship Status Dates Dr. Fernandez Singh DO Primary Care Provider Active Start: March 20, 2025 End: March 20, 2025 Dr. Steven Diop MD Attending Provider Active Start: March 20, 2025 End: March 20, 2025 Dr. Steven Diop MD Referring Provider Active Start: March 20, 2025 End: March 20, 2025 INFORMATION SOURCE (unrecogn ized section and content) DATE CREATED AUTHOR 04/28/2023 [facility] DATE CREATED AUTHOR AUTHOR'S ORGANBRITTON ATION 02/14/2024 [facility] ([place]) DATE CREATED AUTHOR AUTHOR'S ORGANIZ ATION 03/17/[address] [facility] DATE CREATED AUTHOR AUTHOR'S ORGANIZ ATION 04/09/2025 [facility] FOR RECORDS PERTAINING TO PATIENTS WHO ARE [...] BE BASED ON THE PRIMARY CLINICAL RECORDS. [email or web address] [facility]. provides no warranty or guarantee of the accuracy or completeness of information in this document.
== END | disposition home or self-care (01) ==
LOC: OPBI 04-17 07:11
PROVIDERS: PCP Student in an Organized Health Care Education/Training Program; Referring Provider Student in an Organized Health Care Education/Training Program; Visit Provider Student in an Organized Health Care Education/Training Program
DX: Z12.31 Encounter for screening mammogram for malignant neoplasm of breast (principal)
CPT/HCPCS: 77063; 77067